=== PATIENT | female | born 1980 | race Caucasian/White ===

== ENCOUNTER 2017-11-20 19:45 | Inpatient (IN) | payer OTHER ==
[2017-11-20] MEDS ORDERED: Citric Acid/Sodium Citrate Solution 30 ML Cup ONE (20:35)
[2017-11-20] MEDS ORDERED: Metoclopramide 10 MG/2 ML SDV ONE (20:35)
[2017-11-20] MEDS ORDERED: Lactated Ringers 1,000 ML ONE (20:35)
[2017-11-20] MEDS ORDERED: Citric Acid/Sodium Citrate Solution 30 ML Cup PO ONE (20:36)
[2017-11-20] MEDS ORDERED: ceFAZolin 2 GM in Premix Bag 1 BAG IV ONE (20:36)
[2017-11-20] MEDS ORDERED: Metoclopramide 10 MG/2 ML SDV IVPUSH ONE (20:36)
[2017-11-20] MEDS ORDERED: Sodium Chloride 0.9% 10 ML Syringe FLUSH PRN ×2 (20:36→22:20)
[2017-11-20] MEDS ORDERED: Bupivacaine 0.5% 30 ML SDV ONE (20:44)
[2017-11-20] MEDS ORDERED: Lactated Ringers 1,000 ML IV SCH (20:45)
--- NOTE | 2017-11-20 20:47 | PCM.LDHP ---
L&D History of Present Illness - General Date of Service: 11/20/17 Admit Problem/Dx: Patient Status Order with Admit Dx/Problem 11/20/17 20:36 Patient Status [ADT] Routine Admission Diagnosis/Problem Admission Diagnosis/Problem complications Source of Information: Patient History Limitations: Reports: No Limitations - History of Present Illness Introduction:: 37-year-old At estimated gestational age 35 weeks and 6 days RUCHI seen in the clinic today complaining of right lower quadrant and right upper quadrant pain examination at that time revealed no rebound or referred pain bowel sounds were normal the uterus was nontender. Biophysical profiles obtained returned 10/11 with 0 for movement. Patient was called to come to labor and delivery and nonstress test reveals tachycardia in the 170s to 180s and patient's blood pressures elevated in (not elevated in the clinic) 140s to 150s over 90s reflexes 2+. Patient's lower abdominal pain and right lower quadrant pain persists there is concern about possible "window" developing in the prior scar only uterus although this could not be confirmed on biophysical profile. Due to her persistent pain, tachycardia and blood pressure of feel we should proceed with medically indicated section repeat. Group B strep collected today. 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 Psychiatric History: Reports: Depression - Past Surgical History Female Surgical History: Reports: Section H&P Review of Systems - Review of Systems: Review Of Systems: See Below General: Reports: No Symptoms HEENT: Reports: No Symptoms Pulmonary: Reports: No Symptoms Cardiovascular: Reports: No Symptoms Gastrointestinal: Reports: No Symptoms Genitourinary: Reports: No Symptoms Musculoskeletal: Reports: No Symptoms Skin: Reports: No Symptoms Psychiatric: Reports: No Symptoms Neurological: Reports: No Symptoms Hematologic/Lymphatic: Reports: No Symptoms Immunologic: Reports: No Symptoms L&D Exam - Exam Exam: See Below - OB Specific Fundal Height In cm: 39 Movement: Not Appreciated Heart Tones: Present Heart Tones per Min: 175 Heart Rate (FHR) Variability: Moderate (6-25 bmp) Presentation: Vertex Estimated Weight: 8 - Juárez Score Juárez Score Cervix Position: Posterior Juárez Score Consistency: Soft Juárez Score Effacement: 0-30% Juárez Score Dilation: Closed Juárez Score Infant's Station: -3 Juárez Score Total: 2 - Exam General: Alert, Oriented HEENT: Conjunctiva Clear, Mucosa Moist & [place], PERRLA Neck: Supple, Trachea Midline Lungs: Clear to Auscultation, Normal Respiratory Effort Cardiovascular: Regular Rate, Regular Rhythm GI/Abdominal Exam: Normal Bowel Sounds, Soft, Tender (2-3+ tender over area of CS scar.) Genitourinary: Normal external exam Extremities: Normal Inspection, Normal Range of Motion, Non-Tender, No Pedal Edema, Normal Capillary Refill Skin: Warm, Dry, Intact Neurological: Reflexes Equal Bilateral DTR: 2+: Patella (L), Patella (R) Psychiatric: Alert, Normal Affect, Normal Mood - Problem List (1) 35 weeks gestation of SNOMED Code(s): 03757551 ICD Code: Z3A.35 - 35 WEEKS GESTATION OF Status: Acute Current Visit: Yes (2) History of delivery, antepartum SNOMED Code(s): 981933619, 646376765 ICD Code: O34.219 - MATERNAL CARE FOR UNSP TYPE SCAR FROM PREVIOUS DEL Status: Acute Current Visit: Yes (3) Transient hypertension of in third trimester SNOMED Code(s): 412877283, 907135315 ICD Code: O13.3 - GESTATIONAL HTN W/O SIGNIFICANT PROTEINURIA, THIRD TRIMESTER Status: Acute Current Visit: Yes (4) Antepartum tachycardia affecting care of mother SNOMED Code(s): 1084394 ICD Code: O36.8390 - MATERN CARE FOR ABNLT FETL HRT RATE OR RHYM, UNSP TRI, UNSP Status: Acute Current Visit: Yes Problem List Initiated/Reviewed/Updated: No Orders Last 24hrs: Active Orders 24 hr Category Date Time Status Patient Status [ADT] Routine ADT 11/20/17 20:36 Ordered Communication Order [RC] ROUTINE Care 11/20/17 20:36 Ordered Heart Tones [RC] PER UNIT ROUTINE Care 11/20/17 20:36 Ordered Non Stress Test [RC] PER UNIT ROUTINE Care 11/20/17 20:36 Ordered Peripheral IV Care [RC] . DIRECTED Care 11/20/17 20:37 Ordered Procedure Site Prep Instruct [RC] ASDIRECTED Care 11/20/17 20:36 Ordered Verify Patient Consent Obtain [RC] PER UNIT ROUTINE Care 11/20/17 20:36 Ordered Vital Signs [RC] PFP Care 11/20/17 20:36 Ordered ALANINE AMINOTRANSFERASE,ALT [CHEM] Stat Lab 11/20/17 20:14 Ordered ASPARTATE AMNIOTRANSFERASE,AST [CHEM] Stat Lab 11/20/17 20:14 Ordered BLOOD UREA NITROGEN,BUN [CHEM] Stat Lab 11/20/17 20:14 Ordered CBC WITH AUTO DIFF [HEME] Stat Lab 11/20/17 20:14 Ordered CREATININE W/GFR [CHEM] Stat Lab 11/20/17 20:14 Ordered LACTATE DEHYDROGENASE,LDH [CHEM] Stat Lab 11/20/17 20:14 Ordered TYPE AND SCREEN [BBK] Stat Lab 11/20/17 20:13 Ordered URIC ACID [CHEM] Stat Lab 11/20/17 20:14 Ordered Citric Acid/Sodium Citrate [Bicitra Solution] Med 11/20/17 20:36 Once 30 ml PO ONETIME ONE Lactated Ringers @ 125 MLS/HR(1000ml) Med 11/20/17 20:45 Ordered Lactated Ringers [Ringers, Lactated] 1,000 ml IV ASDIRECTED Metoclopramide [Reglan] Med 11/20/17 20:36 Once 10 mg IVPUSH ONETIME ONE Sodium Chloride 0.9% [Saline Flush] Med 11/20/17 20:36 Ordered 10 ml FLUSH ASDIRECTED PRN ceFAZolin [Ancef] 2 gm Med 11/20/17 20:36 Ordered Premix Bag 1 bag IV ONETIME PIH Panel [OM.PC] Stat Oth 11/20/17 20:13 Ordered Peripheral IV Insertion Adult [OM.PC] Routine Oth 11/20/17 20:36 Ordered Schedule Procedure [COMM] Per Unit Routine Oth 11/20/17 20:36 Ordered Resuscitation Status Routine Resus Stat 11/20/17 20:36 Ordered
[2017-11-20] MEDS ORDERED: Oxytocin 10 Units/1 ML SDV ONE (20:54)
[2017-11-20] MEDS ORDERED: Ondansetron 4 MG/2 ML SDV ONE (20:54)
[2017-11-20] MEDS ORDERED: ceFAZolin 1 GM Vial ONE (20:54)
[2017-11-20] MEDS ORDERED: Lactated Ringers 2,000 ML ONE (20:54)
[2017-11-20] MEDS ORDERED: Morphine PF 10 MG/10 ML SDV ONE (20:54)
[2017-11-20] MEDS ORDERED: Bupivacaine 0.75%/D5W 2 ML Amp ONE (20:54)
[2017-11-20] MEDS ORDERED: Lidocaine 1% 4 ML ONE (20:54)
[2017-11-20] MEDS ORDERED: Ketorolac 30 MG/ML SDV ONE (20:54)
[2017-11-20] MEDS ORDERED: Phenylephrine 1% 10 MG/ML SDV ONE (20:54)
[2017-11-20] MEDS ORDERED: Ondansetron 4 MG/2 ML SDV IVPUSH PRN (21:39)
[2017-11-20] MEDS ORDERED: fentaNYL 100 MCG/2 ML SDV IVPUSH PRN (21:39)
[2017-11-20] MEDS ORDERED: HYDROmorphone 0.5 MG/0.5 ML SYRINGE IVPUSH PRN (21:39)
[2017-11-20] MEDS ORDERED: ePHEDrine 50 MG/ML SDV IVPUSH PRN ×2 (21:39→22:20)
[2017-11-20] MEDS ORDERED: diphenhydrAMINE 50 MG/ML SDV IVPUSH PRN (21:39)
--- NOTE | 2017-11-20 21:46 | PCM.PREANE ---
Preanesthetic Assessment - Anesthesia/Transfusion/Family Hx Anesthesia History: Prior Anesthesia Without Reaction Family History of Anesthesia Reaction: No Transfusion History: No Prior Transfusion(s) Intubation History: Unknown - Review of Systems General: No Symptoms Pulmonary: No Symptoms Cardiovascular: No Symptoms (recent gestational HTN), Palpitations (while and laying flat) Gastrointestinal: No Symptoms (GERD), Constipation Neurological: No Symptoms Other: Reports: Depression - Physical Assessment NPO Status Date: 11/20/17 NPO Status Time: 17:00 Pulse: 98 O2 Sat by Pulse Oximetry: 96 Respiratory Rate: 20 Blood Pressure: 144/88 Temperature: 36.6 C Height: 1.73 m Weight: 106 kg ASA Class: 2E Mental Status: Alert & Oriented x3 Airway Class: Mallampati = 2 Dentition: Reports: Normal Dentition Thyro-Mental Finger Breadths: 3 Mouth Opening Finger Breadths: 3 ROM/Head Extension: Full Lungs: Clear to Auscultation, Normal Respiratory Effort Cardiovascular: Regular Rate, Regular Rhythm, No Murmurs - Lab Values: Laboratory Last Values WBC 7.57 K/mm3 (3.98-10.04) 11/20/17 20:35 RBC 3.75 M/mm3 (3.98-5.22) L 11/20/17 20:35 Hgb 10.7 gm/L (11.2-15.7) L 11/20/17 20:35 Hct 32.3 % (34.1-44.9) L 11/20/17 20:35 MCV 86.1 fl (79.4-94.8) 11/20/17 20:35 MCH 28.5 pg (25.6-32.2) 11/20/17 20:35 MCHC 33.1 g/dl (32.2-35.5) 11/20/17 20:35 RDW Std Deviation 44.4 fL (36.4-46.3) 11/20/17 20:35 Plt Count 265 K/mm3 (182-369) 11/20/17 20:35 MPV 10.4 fl (9.4-12.3) 11/20/17 20:35 Neut % (Auto) 68.8 % (34.0-71.1) 11/20/17 20:35 Lymph % (Auto) 21.1 % (19.3-51.7) 11/20/17 20:35 Charlton % (Auto) 9.1 % (4.7-12.5) 11/20/17 20:35 Eos % (Auto) 0.8 (0.7-5.8) 11/20/17 20:35 Baso % (Auto) 0.1 % (0.1-1.2) 11/20/17 20:35 Neut # (Auto) 5.20 K/mm3 (1.56-6.13) 11/20/17 20:35 Lymph # (Auto) 1.60 K/mm3 (1.18-3.74) 11/20/17 20:35 Charlton # (Auto) 0.69 K/mm3 (0.24-0.36) H 11/20/17 20:35 Eos # (Auto) 0.06 K/mm3 (0.04-0.36) 11/20/17 20:35 Baso # (Auto) 0.01 K/mm3 (0.01-0.08) 11/20/17 20:35 BUN 5 mg/dL (7-18) L 11/20/17 20:35 Creatinine 0.8 mg/dL (0.55-1.02) 11/20/17 20:35 Est Cr Clr Drug Dosing TNP 11/20/17 20:35 Estimated GFR (MDRD) > 60 mL/min (>60) 11/20/17 20:35 Uric Acid 4.0 mg/dL (2.6-6.0) 11/20/17 20:35 AST 11 U/L (15-37) L 11/20/17 20:35 ALT 11 U/L (14-59) L 11/20/17 20:35 Lactate Dehydrogenase 151 U/L (81-234) 11/20/17 20:35 Above labs reviewed and noted and within acceptable ranges to proceed with repeat . 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 Psychiatric History: Reports: Depression - Past Surgical History Female Surgical History: Reports: Section - HOME MEDS Home Medications: Home Meds Hydrocodone/Acetaminophen [Hydrocodon-Acetaminophen 5-325] 1 - 2 each PO Q6HR PRN #20 tablet 04/05/16 [Rx] Sertraline HCl [Zoloft] 100 mg PO DAILY 04/05/16 [History] - CURRENT (IN HOUSE) MEDS Current Meds: Current Medications Diphenhydramine HCl (Benadryl) 25 mg IVPUSH Q6H PRN PRN Reason: pruritis Ephedrine Sulfate (Ephedrine Sulfate) 5 mg IVPUSH ASDIRECTED PRN PRN Reason: Hypotension Fentanyl (Sublimaze) 50 mcg IVPUSH Q5M PRN PRN Reason: Pain Hydromorphone HCl (Dilaudid) 0.5 mg IVPUSH ONETIME PRN PRN Reason: Pain Lactated Ringer's (Ringers, Lactated) 1,000 mls @ 125 mls/hr IV ASDIRECTED GLORIA Last Admin: 11/20/17 20:53 Dose: 125 mls/hr Ondansetron HCl (Zofran) 4 mg IVPUSH ONETIME PRN PRN Reason: Nausea/Vomiting Sodium Chloride (Saline Flush) 10 ml FLUSH ASDIRECTED PRN PRN Reason: Keep Vein Open Discontinued Medications Bupivacaine HCl (Marcaine 0.5%) Confirm Administered Dose 30 ml .ROUTE .STK-MED ONE Stop: 11/20/17 20:45 Bupivacaine HCl/Dextrose (Marcaine 0.75% Spinal) Confirm Administered Dose 2 ml .ROUTE .STK-MED ONE Stop: 11/20/17 20:55 Cefazolin Sodium (Ancef) Confirm Administered Dose 2 gm .ROUTE .STK-MED ONE Stop: 11/20/17 20:55 Citric Acid/Sodium Citrate (Bicitra Solution) Confirm Administered Dose 30 ml .ROUTE .STK-MED ONE Stop: 11/20/17 20:36 Citric Acid/Sodium Citrate (Bicitra Solution) 30 ml PO ONETIME ONE Stop: 11/20/17 20:37 Last Admin: 11/20/17 20:54 Dose: 30 ml Lactated Ringer's (Ringers, Lactated) Confirm Administered Dose 1,000 mls @ as directed .ROUTE .STK-MED ONE Stop: 11/20/17 20:36 Cefazolin Sodium/Dextrose 2 gm (/ Premix) 50 mls @ 100 mls/hr IV ONETIME ONE Stop: 11/20/17 21:05 Lidocaine HCl (Xylocaine-Mpf 1%) Confirm Administered Dose 4 mls @ as directed .ROUTE .STK-MED ONE Stop: 11/20/17 20:55 Lactated Ringer's (Ringers, Lactated) Confirm Administered Dose 2,000 mls @ as directed .ROUTE .STK-MED ONE Stop: 11/20/17 20:55 Ketorolac Tromethamine (Toradol) Confirm Administered Dose 30 mg .ROUTE .STK- MED ONE Stop: 11/20/17 20:55 Metoclopramide HCl (Reglan) Confirm Administered Dose 10 mg .ROUTE .STK-MED ONE Stop: 11/20/17 20:36 Metoclopramide HCl (Reglan) 10 mg IVPUSH ONETIME ONE Stop: 11/20/17 20:37 Last Admin: 11/20/17 20:54 Dose: 10 mg Morphine Sulfate (Duramorph Pf) Confirm Administered Dose 10 mg .ROUTE .STK-MED ONE Stop: 11/20/17 20:55 Ondansetron HCl (Zofran) Confirm Administered Dose 4 mg .ROUTE .STK-MED ONE Stop: 11/20/17 20:55 Oxytocin (Pitocin) Confirm Administered Dose 20 unit .ROUTE .STK-MED ONE Stop: 11/20/17 20:55 Phenylephrine HCl (Star-Synephrine) Confirm Administered Dose 10 mg .ROUTE .STK- MED ONE Stop: 11/20/17 20:55
--- NOTE | 2017-11-20 22:10 | PCM.POSTAN ---
POST ANESTHESIA ASSESSMENT - MENTAL STATUS Mental Status: Alert - VITAL SIGNS Pulse Rate: 89 SaO2: 98 Resp Rate: 14 Blood Pressure: 120/72 Temperature: 36.5 C - RESPIRATORY Respiratory Status: Respiratory Rate WNL, Airway Patent, O2 Saturation Stable, Supplemental Oxygen - CARDIOVASCULAR CV Status: Pulse Rate WNL, Blood Pressure Stable - GASTROINTESTINAL GI Status: No Symptoms - POST OP HYDRATION Hydration Status: Adequate & Stable
--- NOTE | 2017-11-20 22:12 | PCM.OPNOTE ---
- General Post-Op/Procedure Note Date of Surgery/Procedure: 11/20/17 Operative Procedure(s): Low segment transverse repeat (third ) Pre Op Diagnosis: Decreased movement, tachycardia, maternal transient hypertension, gestational diabetes diet controlled, abdominal pain and suspected window in prior scar Post-Op Diagnosis: Same and window confirmed with only membranes and serosa of the uterus with window in the prior scar Anesthesia Technique: Spinal Primary Surgeon: Jayson Ford Secondary Surgeon: Fco Sibley Anesthesia Provider: Juanis Jensen Reason Special Assemblies Supervisor Was Necessary: Difficulty of surgery, retraction, decrease comorbidity and co-mortality Role of Special Assemblies Supervisor: Difficulty of surgery, retraction, decrease comorbidity and co-mortality Fluid Replacement, Intraop: 1,100 Output, Urine Amount: 150 EBL in mLs: 500 Drain/Tube Comments:: Dunn Complications: None Condition: Good Free Text/Narrative:: Patient was transported to operating room and placed under spinal anesthesia in supine position. SCDs in place and functioning prior surgery. Ancef 2 g given intravenously prior surgery. Vaginal and abdominal prep performed. Patient draped in a sterile fashion. Timeout performed confirming name, date of and procedure as repeat section. Adequate level of anesthesia was confirmed patient's friend was brought to the operating room. Pfannenstiel incision was injected with 0.5% Marcaine without epinephrine 20 mL. Pfannenstiel incision was then made and care was sharp section to into the anterior fascia peritoneal cavity was entered without difficulty bladder flap created pushed caudad and a window in the previous scar was noted with only membranes and serosa no intervening myometrial tissue. Incision was made and copious amounts of amniotic fluid estimated at approximately 1000 mL. The head was delivered without difficulty male liveborn delivered at 2134 hrs. on Saturday11/20/17 Apgars 8/9 weight 4040 g 8 lbs. [address] Dobbs present and cared for the . Cord blood was collected from three-vessel cord and placenta was removed manually endometrial cavity inspected and cervical patency was assured. Bunge needle pack instrument sharp count correct times one the uterine incision closed in 2 layers running locking suture of 0 Monocryl for the first layer horizontal imbricating suture modified Lembert type for the second layer. Hemostasis was normal. Both tubes and ovaries were normal. Clots were cleaned from the gutters and cul-de-sac. Uterus replaced into the abdominal cavity. The uterine incision reinspected no bleeding. Sponge needle pack instrument sharp count correct 2 and the abdominal cavity was closed with #1 PDS running suture. Irrigation carried out in the subcutaneous tissue. 3 interrupted sutures of 0 Monocryl approximated the subcutaneous tissue. The skin was closed subcuticular with 30 Domingo needle Monocryl. Dermabond Preneo applied. Not for cleaned from the vagina at the end the procedure. Patient transported postanesthesia care unit in satisfactory condition. No blood transfusions required during surgery.
[2017-11-20] MEDS ORDERED: Meperidine PF 50 MG/ML Syringe ONE (22:16)
[2017-11-20] MEDS ORDERED: Docusate Sodium 100 MG Cap PO PRN (22:20)
[2017-11-20] MEDS ORDERED: Dextrose 5%-Lactated Ringers 1,000 ML IV SCH (22:20)
[2017-11-20] MEDS ORDERED: Lanolin 100% Cream 7 GM Tube TOP PRN (22:20)
[2017-11-20] MEDS ORDERED: Naloxone 0.4 MG/ML SDV IVPUSH PRN (22:20)
[2017-11-20] MEDS ORDERED: Ondansetron 4 MG/2 ML SDV IV PRN (22:20)
[2017-11-20] MEDS ORDERED: Acetaminophen 325 MG Tab PO PRN (22:20)
[2017-11-20] MEDS ORDERED: Acetaminophen/oxyCODONE 325-5 MG Tab PO PRN (22:20)
[2017-11-20] MEDS ORDERED: Meperidine PF 50 MG/ML Syringe IM ONE (22:37)
[2017-11-21] MEDS: diphenhydrAMINE 50 MG/ML SDV IVPUSH PRN ×2 (00:53→09:47)
[2017-11-21] MEDS: Sertraline 25 MG Tab PO SCH ×2 (00:54→09:45)
[2017-11-21] MEDS: Ketorolac 30 MG/ML SDV IVPUSH SCH ×2 (04:22→09:46)
--- NOTE | 2017-11-21 08:48 | PCM.DCSUM1 ---
Discharge Summary - Hospital Course Free Text/Narrative:: [facility] Post-Op/Procedure Note Patient Name: RACHEL ESTRADA Date of : 84 Patient Status: Inpatient Attending Provider: Jayson Ford Date: 11/20/17 22:05 Initialization Date: 11/20/17 22:05 - General Post-Op/Procedure Note Date of Surgery/Procedure: 11/20/17 Operative Procedure(s): Low segment transverse repeat (third ) Pre Op Diagnosis: Decreased movement, tachycardia, maternal transient hypertension, gestational diabetes diet controlled, abdominal pain and suspected window in prior scar Post-Op Diagnosis: Same and window confirmed with only membranes and serosa of the uterus with window in the prior scar Anesthesia Technique: Spinal Primary Surgeon: Jayson Ford Secondary Surgeon: Fco Sibley Anesthesia Provider: Juanis Jensen Reason Mechanical Insulator Was Necessary: Difficulty of surgery, retraction, decrease comorbidity and co-mortality Role of Mechanical Insulator: Difficulty of surgery, retraction, decrease comorbidity and co-mortality Fluid Replacement, Intraop: 1,100 Output, Urine Amount: 150 EBL in mLs: 500 Drain/Tube Comments:: Dunn Complications: None Condition: Good Free Text/Narrative:: Patient was transported to operating room and placed under spinal anesthesia in supine position. SCDs in place and functioning prior surgery. Ancef 2 g given intravenously prior surgery. Vaginal and abdominal prep performed. Patient draped in a sterile fashion. Timeout performed confirming name, date of and procedure as repeat section. Adequate level of anesthesia was confirmed patient's friend was brought to the operating room. Pfannenstiel incision was injected with 0.5% Marcaine without epinephrine 20 mL. Pfannenstiel incision was then made and care was sharp section to into the anterior fascia peritoneal cavity was entered without difficulty bladder flap created pushed caudad and a window in the previous scar was noted with only membranes and serosa no intervening myometrial tissue. Incision was made and copious amounts of amniotic fluid estimated at approximately 1000 mL. The head was delivered without difficulty male liveborn delivered at 2134 hrs. on Saturday11/20/17 Apgars 8/9 weight 4040 g 8 lbs. [address] marketing associate [address] Dobbs present and cared for the . Cord blood was collected from three-vessel cord and placenta was removed manually endometrial cavity inspected and cervical patency was assured. Bunge needle pack instrument sharp count correct times one the uterine incision closed in 2 layers running locking suture of 0 Monocryl for the first layer horizontal imbricating suture modified Lembert type for the second layer. Hemostasis was normal. Both tubes and ovaries were normal. Clots were cleaned from the gutters and cul-de-sac. Uterus replaced into the abdominal cavity. The uterine incision reinspected no bleeding. Sponge needle pack instrument sharp count correct 2 and the abdominal cavity was closed with #1 PDS running suture. Irrigation carried out in the subcutaneous tissue. 3 interrupted sutures of 0 Monocryl approximated the subcutaneous tissue. The skin was closed subcuticular with 30 Domingo needle Monocryl. Dermabond Preneo applied. Not for cleaned from the vagina at the end the procedure. Patient transported postanesthesia care unit in satisfactory condition. No blood transfusions required during surgery. HPI Initial Comments: [facility] Post-Op/Procedure Note Patient Name: RACHEL ESTRADA Date of : 84 Patient Status: Inpatient Attending Provider: Jayson Ford Date: 11/20/17 22:05 Initialization Date: 11/20/17 22:05 - General Post-Op/Procedure Note Date of Surgery/Procedure: 11/20/17 Operative Procedure(s): Low segment transverse repeat (third ) Pre Op Diagnosis: Decreased movement, tachycardia, maternal transient hypertension, gestational diabetes diet controlled, abdominal pain and suspected window in prior scar Post-Op Diagnosis: Same and window confirmed with only membranes and serosa of the uterus with window in the prior scar Anesthesia Technique: Spinal Primary Surgeon: Jayson Ford Secondary Surgeon: Fco Sibley Anesthesia Provider: Juanis Jensen Reason Mechanical Insulator Was Necessary: Difficulty of surgery, retraction, decrease comorbidity and co-mortality Role of Mechanical Insulator: Difficulty of surgery, retraction, decrease comorbidity and co-mortality Fluid Replacement, Intraop: 1,100 Output, Urine Amount: 150 EBL in mLs: 500 Drain/Tube Comments:: Dunn Complications: None Condition: Good Free Text/Narrative:: Patient was transported to operating room and placed under spinal anesthesia in supine position. SCDs in place and functioning prior surgery. Ancef 2 g given intravenously prior surgery. Vaginal and abdominal prep performed. Patient draped in a sterile fashion. Timeout performed confirming name, date of and procedure as repeat section. Adequate level of anesthesia was confirmed patient's friend was brought to the operating room. Pfannenstiel incision was injected with 0.5% Marcaine without epinephrine 20 mL. Pfannenstiel incision was then made and care was sharp section to into the anterior fascia peritoneal cavity was entered without difficulty bladder flap created pushed caudad and a window in the previous scar was noted with only membranes and serosa no intervening myometrial tissue. Incision was made and copious amounts of amniotic fluid estimated at approximately 1000 mL. The head was delivered without difficulty male liveborn delivered at 2134 hrs. on Saturday11/20/17 Apgars 8/9 weight 4040 g 8 lbs. [address] associate [address] Dobbs present and cared for the . Cord blood was collected from three-vessel cord and placenta was removed manually endometrial cavity inspected and cervical patency was assured. Bunge needle pack instrument sharp count correct times one the uterine incision closed in 2 layers running locking suture of 0 Monocryl for the first layer horizontal imbricating suture modified Lembert type for the second layer. Hemostasis was normal. Both tubes and ovaries were normal. Clots were cleaned from the gutters and cul-de-sac. Uterus replaced into the abdominal cavity. The uterine incision reinspected no bleeding. Sponge needle pack instrument sharp count correct 2 and the abdominal cavity was closed with #1 PDS running suture. Irrigation carried out in the subcutaneous tissue. 3 interrupted sutures of 0 Monocryl approximated the subcutaneous tissue. The skin was closed subcuticular with 30 Domingo needle Monocryl. Dermabond Preneo applied. Not for cleaned from the vagina at the end the procedure. Patient transported postanesthesia care unit in satisfactory condition. No blood transfusions required during surgery. Brief History: [facility] . Post-Op/Procedure Note. Patient Name: RACHEL ESTRADA [facility] Record Number: [id number]. Date of : Patient Status: Inpatient. [id number]. Date: 11/20/17 22:05Initialization Date: 11/20/17 22:05. - General Post-Op/Procedure Note. Date of Surgery/Procedure: 11/20/17. Operative Procedure(s): Low segment transverse repeat (third ). Pre Op Diagnosis: Decreased movement, tachycardia, maternal transient hypertension, gestational diabetes diet controlled, abdominal pain and suspected window in prior scar. Post-Op Diagnosis: Same and window confirmed with only membranes and serosa of the uterus with window in the prior scar. Anesthesia Technique: Spinal. Primary Surgeon: Jayson Ford. Secondary Surgeon: Fco Sibley. Anesthesia Provider: Juanis Jensen. Reason Mechanical Insulator Was Necessary: Difficulty of surgery, retraction, decrease comorbidity and co-mortality. Role of Mechanical Insulator: Difficulty of surgery, retraction, decrease comorbidity and co-mortality. Fluid Replacement, Intraop: 1,100. Output, Urine Amount: 150. EBL in mLs: 500. Drain/Tube Comments:: Dunn. Complications: None. Condition: Good. Free Text/Narrative:: Patient was transported to operating room and placed under spinal anesthesia in supine position. SCDs in place and functioning prior surgery. Ancef 2 g given intravenously prior surgery. Vaginal and abdominal prep performed. Patient draped in a sterile fashion. Timeout performed confirming name, date of and procedure as repeat section. Adequate level of anesthesia was confirmed patient's friend was brought to the operating room. Pfannenstiel incision was injected with 0.5% Marcaine without epinephrine 20 mL. Pfannenstiel incision was then made and care was sharp section to into the anterior fascia peritoneal cavity was entered without difficulty bladder flap created pushed caudad and a window in the previous C- section scar was noted with only membranes and serosa no intervening myometrial tissue. Incision was made and copious amounts of amniotic fluid estimated at approximately 1000 mL. The head was delivered without difficulty male liveborn delivered at 2134 hrs. on Saturday11/20/17 Apgars 8/9 weight 4040 g 8 lbs. [address] Oksa present and cared for the . Cord blood was collected from three-vessel cord and placenta was removed manually endometrial cavity inspected and cervical patency was assured. Bunge needle pack instrument sharp count correct times one the uterine incision closed in 2 layers running locking suture of 0 Monocryl for the first layer horizontal imbricating suture modified Lembert type for the second layer. Hemostasis was normal. Both tubes and ovaries were normal. Clots were cleaned from the gutters and cul-de-sac. Uterus replaced into the abdominal cavity. The uterine incision reinspected no bleeding. Sponge needle pack instrument sharp count correct 2 and the abdominal cavity was closed with #1 PDS running suture. Irrigation carried out in the subcutaneous tissue. 3 interrupted sutures of 0 Monocryl approximated the subcutaneous tissue. The skin was closed subcuticular with 30 Domingo needle Monocryl. Dermabond Preneo applied. Not for cleaned from the vagina at the end the procedure. Patient transported postanesthesia care unit in satisfactory condition. No blood transfusions required during surgery. Diagnosis: Stroke: No - Discharge Data Discharge Date: 11/21/17 Discharge Disposition: Home, Self-Care 01 Condition: Good - Discharge Diagnosis/Problem(s) (1) 35 weeks gestation of SNOMED Code(s): 08637983 ICD Code: Z3A.35 - 35 WEEKS GESTATION OF Status: Acute Current Visit: Yes (2) History of delivery, antepartum SNOMED Code(s): 970184147, 820627356 ICD Code: O34.219 - MATERNAL CARE FOR UNSP TYPE SCAR FROM PREVIOUS DEL Status: Acute Current Visit: Yes (3) Transient hypertension of in third trimester SNOMED Code(s): 117232776, 842710964 ICD Code: O13.3 - GESTATIONAL HTN W/O SIGNIFICANT PROTEINURIA, THIRD TRIMESTER Status: Acute Current Visit: Yes (4) Antepartum tachycardia affecting care of mother SNOMED Code(s): 7112127 ICD Code: O36.8390 - MATERN CARE FOR ABNLT FETL HRT RATE OR RHYM, UNSP TRI, UNSP Status: Acute Current Visit: Yes (5) Gestational diabetes mellitus (GDM) SNOMED Code(s): 22095102 ICD Code: O24.419 - GESTATIONAL DIABETES MELLITUS IN , UNSP CONTROL Status: Acute Current Visit: No Qualifiers: Gestational diabetes mellitus control: diet-controlled Trimester: third trimester Qualified Code(s): O24.410 - Gestational diabetes mellitus in , diet controlled - Patient Summary/Data Operative Procedure(s) Performed: Low segment transverse repeat ( third ) Complications: None Consults: None Hospital Course: Uneventful - Patient Instructions Diet: Diabetic Diet Driving: Do Not Drive (2 weeks) Showering/Bathing: May Shower, No Tub Bathing/Swimming (x6 weeks) Wound/Incision Care: Keep Operative Site/Wound Site Clean and Dry Notify Provider of: Fever, Increased Pain, Swelling and Redness, Drainage, Nausea and/or Vomiting - Discharge Plan *PRESCRIPTION DRUG MONITORING PROGRAM REVIEWED*: Yes *COPY OF PRESCRIPTION DRUG MONITORING REPORT IN PATIENT ALEXIA: Yes Prescriptions/Med Rec: Acetaminophen/oxyCODONE [Percocet 325-5 MG] 1 tab PO Q6H PRN #10 tablet PRN Reason: Pain (Moderate 4-6) Ondansetron [Zofran ODT] 4 mg PO Q6H PRN #10 tab.dis PRN Reason: Nausea Sertraline [Zoloft] 50 mg PO DAILY #30 tablet Home Medications: Home Meds Hydrocodone/Acetaminophen [Hydrocodon-Acetaminophen 5-325] 1 - 2 each PO Q6HR PRN #20 tablet 04/05/16 [Rx] Sertraline HCl [Zoloft] 100 mg PO DAILY 04/05/16 [History] Acetaminophen [Tylenol] 650 mg PO Q4H PRN tablet 11/21/17 [Rx] Acetaminophen/oxyCODONE [Percocet 325-5 MG] 1 tab PO Q6H PRN #10 tablet [Rx] Docusate Sodium [Colace] 100 mg PO Q12H PRN cap 11/21/17 [Rx] Ibuprofen [Motrin] 600 mg PO Q6H PRN tablet 11/21/17 [Rx] Lanolin [Lansinoh HPA] 1 applic TOP ASDIRECTED PRN tube 11/21/17 [Rx] Ondansetron [Zofran ODT] 4 mg PO Q6H PRN #10 tab.dis 11/21/17 [Rx] Sertraline [Zoloft] 50 mg PO DAILY #30 tablet 11/21/17 [Rx] Simethicone 80 mg PO PCBED tab.chew 11/21/17 [Rx] diphenhydrAMINE [Benadryl] 25 mg IVPUSH Q6H PRN sdv 11/21/17 [Rx] Referrals: Jayson Ford MD [Primary Care Provider] - (Patient to see me next week .) - Discharge Summary/Plan Comment DC Time >30 min.: No - Patient Data Vitals - Most Recent: Last Vital Signs Temp 98.6 F 11/21/17 04:30 Pulse 90 11/21/17 04:02 Resp 13 11/20/17 23:00 BP 139/82 11/21/17 04:02 Pulse Ox 98 11/21/17 04:02 Weight - Most Recent: 233 lb 11.04 oz I&O - Last 24 hours: Intake & Output 11/20/17 11/21/17 11/21/17 22:59 06:59 14:59 Intake Total 1350 250 Output Total 300 400 Balance 1050 -150 Lab Results - Last 24 hrs: Laboratory Results - last 24 hr 11/20/17 11/20/17 11/20/17 Range/Units 20:35 20:35 20:35 WBC 7.57 (3.98-10.04) K/mm3 RBC 3.75 L (3.98-5.22) M/mm3 Hgb 10.7 L (11.2-15.7) gm/L Hct 32.3 L (34.1-44.9) % MCV 86.1 (79.4-94.8) fl MCH 28.5 (25.6-32.2) pg MCHC 33.1 (32.2-35.5) g/dl RDW Std Deviation 44.4 (36.4-46.3) fL Plt Count 265 (182-369) K/mm3 MPV 10.4 (9.4-12.3) fl Neut % (Auto) 68.8 (34.0-71.1) % Lymph % (Auto) 21.1 (19.3-51.7) % Tate % (Auto) 9.1 (4.7-12.5) % Eos % (Auto) 0.8 (0.7-5.8) Baso % (Auto) 0.1 (0.1-1.2) % Neut # (Auto) 5.20 (1.56-6.13) K/mm3 Lymph # (Auto) 1.60 (1.18-3.74) K/mm3 Tate # (Auto) 0.69 H (0.24-0.36) K/mm3 Eos # (Auto) 0.06 (0.04-0.36) K/mm3 Baso # (Auto) 0.01 (0.01-0.08) K/mm3 BUN 5 L (7-18) mg/dL Creatinine 0.8 (0.55-1.02) mg/dL Est Cr Clr Drug Dosing TNP Estimated GFR (MDRD) > 60 (>60) mL/min Uric Acid 4.0 (2.6-6.0) mg/dL AST 11 L (15-37) U/L ALT 11 L (14-59) U/L Lactate Dehydrogenase 151 (81-234) U/L Blood Type O POSITIVE Gel Antibody Screen Negative 11/21/17 Range/Units 06:15 WBC 11.30 H (3.98-10.04) K/mm3 RBC 3.45 L (3.98-5.22) M/mm3 Hgb 9.7 L (11.2-15.7) gm/L Hct 29.8 L (34.1-44.9) % MCV 86.4 (79.4-94.8) fl MCH 28.1 (25.6-32.2) pg MCHC 32.6 (32.2-35.5) g/dl RDW Std Deviation 44.1 (36.4-46.3) fL Plt Count 254 (182-369) K/mm3 MPV 10.5 (9.4-12.3) fl Neut % (Auto) 73.5 H (34.0-71.1) % Lymph % (Auto) 17.6 L (19.3-51.7) % Tate % (Auto) 8.0 (4.7-12.5) % Eos % (Auto) 0.5 L (0.7-5.8) Baso % (Auto) 0.1 (0.1-1.2) % Neut # (Auto) 8.31 H (1.56-6.13) K/mm3 Lymph # (Auto) 1.99 (1.18-3.74) K/mm3 Tate # (Auto) 0.90 H (0.24-0.36) K/mm3 Eos # (Auto) 0.06 (0.04-0.36) K/mm3 Baso # (Auto) 0.01 (0.01-0.08) K/mm3 BUN (7-18) mg/dL Creatinine (0.55-1.02) mg/dL Est Cr Clr Drug Dosing Estimated GFR (MDRD) (>60) mL/min Uric Acid (2.6-6.0) mg/dL AST (15-37) U/L ALT (14-59) U/L Lactate Dehydrogenase (81-234) U/L Blood Type Gel Antibody Screen Med Orders - Current: Current Medications Acetaminophen (Tylenol) 650 mg PO Q4H PRN PRN Reason: mild pain or fever Diphenhydramine HCl (Benadryl) 25 mg IVPUSH Q6H PRN PRN Reason: Itching or Nausea Last Admin: 11/21/17 00:53 Dose: 25 mg Docusate Sodium (Colace) 100 mg PO Q12H PRN PRN Reason: Constipation Emollient Ointment (Lansinoh Hpa) 0 gm TOP ASDIRECTED PRN PRN Reason: Sore Nipples Ephedrine Sulfate (Ephedrine Sulfate) 5 mg IVPUSH SEECOMMENT PRN PRN Reason: Other Ibuprofen (Motrin) 600 mg PO Q6H PRN PRN Reason: mild pain or fever Ketorolac Tromethamine (Toradol) 30 mg IVPUSH Q6H [facility] Stop: 11/21/17 16:01 Last Admin: 11/21/17 04:22 Dose: 30 mg Naloxone HCl (Narcan) 0.1 mg IVPUSH SEECOMMENT PRN PRN Reason: Respiratory Depression Ondansetron HCl (Zofran) 4 mg IV Q8H PRN PRN Reason: Nausea/Vomiting Oxycodone/Acetaminophen (Percocet 325-5 Mg) 2 tab PO Q4H PRN PRN Reason: Pain (moderate 4-6) Sertraline HCl (Zoloft) 25 mg PO DAILY [facility] Last Admin: 11/21/17 00:54 Dose: Not Given Simethicone (Simethicone) 80 mg PO PCBED [facility] Sodium Chloride (Saline Flush) 10 ml FLUSH ASDIRECTED PRN PRN Reason: Keep Vein Open Discontinued Medications Bupivacaine HCl (Marcaine 0.5%) Confirm Administered Dose 30 ml .ROUTE .STK-MED ONE Stop: 11/20/17 20:45 Last Admin: 11/20/17 21:31 Dose: 20 ml Bupivacaine HCl/Dextrose (Marcaine 0.75% Spinal) Confirm Administered Dose 2 ml .ROUTE .STK-MED ONE Stop: 11/20/17 20:55 Cefazolin Sodium (Ancef) Confirm Administered Dose 2 gm .ROUTE .STK-MED ONE Stop: 11/20/17 20:55 Citric Acid/Sodium Citrate (Bicitra Solution) Confirm Administered Dose 30 ml .ROUTE .STK-MED ONE Stop: 11/20/17 20:36 Citric Acid/Sodium Citrate (Bicitra Solution) 30 ml PO ONETIME ONE Stop: 11/20/17 20:37 Last Admin: 11/20/17 20:54 Dose: 30 ml Diphenhydramine HCl (Benadryl) 25 mg IVPUSH Q6H PRN PRN Reason: pruritis Ephedrine Sulfate (Ephedrine Sulfate) 5 mg IVPUSH ASDIRECTED PRN PRN Reason: Hypotension Fentanyl (Sublimaze) 50 mcg IVPUSH Q5M PRN PRN Reason: Pain Hydromorphone HCl (Dilaudid) 0.5 mg IVPUSH ONETIME PRN PRN Reason: Pain Lactated Ringer's (Ringers, Lactated) Confirm Administered Dose 1,000 mls @ as directed .ROUTE .STK-MED ONE Stop: 11/20/17 20:36 Cefazolin Sodium/Dextrose 2 gm (/ Premix) 50 mls @ 100 mls/hr IV ONETIME ONE Stop: 11/20/17 21:05 Lactated Ringer's (Ringers, Lactated) 1,000 mls @ 125 mls/hr IV ASDIRECTED GLORIA Last Admin: 11/20/17 20:53 Dose: 125 mls/hr Lidocaine HCl (Xylocaine-Mpf 1%) Confirm Administered Dose 4 mls @ as directed .ROUTE .STK-MED ONE Stop: 11/20/17 20:55 Lactated Ringer's (Ringers, Lactated) Confirm Administered Dose 2,000 mls @ as directed .ROUTE .STK-MED ONE Stop: 11/20/17 20:55 Dextrose/Lactated Ringer's (Dextrose 5%-Lactated Ringers) 1,000 mls @ 125 mls/ hr IV ASDIRECTED GLORIA Stop: 11/21/17 06:19 Last Admin: 11/21/17 00:54 Dose: 125 mls/hr Ketorolac Tromethamine (Toradol) Confirm Administered Dose 30 mg .ROUTE .STK- MED ONE Stop: 11/20/17 20:55 Meperidine HCl (Demerol) Confirm Administered Dose 50 mg .ROUTE .STK-MED ONE Stop: 11/20/17 22:17 Meperidine HCl (Demerol) 25 mg IM ONETIME ONE Stop: 11/20/17 22:38 Last Admin: 11/20/17 22:17 Dose: 25 mg Metoclopramide HCl (Reglan) Confirm Administered Dose 10 mg .ROUTE .STK-MED ONE Stop: 11/20/17 20:36 Metoclopramide HCl (Reglan) 10 mg IVPUSH ONETIME ONE Stop: 11/20/17 20:37 Last Admin: 11/20/17 20:54 Dose: 10 mg Morphine Sulfate (Duramorph Pf) Confirm Administered Dose 10 mg .ROUTE .STK-MED ONE Stop: 11/20/17 20:55 Ondansetron HCl (Zofran) Confirm Administered Dose 4 mg .ROUTE .STK-MED ONE Stop: 11/20/17 20:55 Ondansetron HCl (Zofran) 4 mg IVPUSH ONETIME PRN PRN Reason: Nausea/Vomiting Oxytocin (Pitocin) Confirm Administered Dose 20 unit .ROUTE .STK-MED ONE Stop: 11/20/17 20:55 Phenylephrine HCl (Star-Synephrine) Confirm Administered Dose 10 mg .ROUTE .STK- MED ONE Stop: 11/20/17 20:55 Sodium Chloride (Saline Flush) 10 ml FLUSH ASDIRECTED PRN PRN Reason: Keep Vein Open
--- NOTE | 2017-11-21 09:35 | PCM48HPAN ---
Post Anesthesia Note - EVALUATION WITHIN 48HRS OF ANESTHETIC Vital Signs in Normal Range: Yes Patient Participated in Evaluation: Yes Respiratory Function Stable: Yes Airway Patent: Yes Cardiovascular Function Stable: Yes Hydration Status Stable: Yes Pain Control Satisfactory: Yes Nausea and Vomiting Control Satisfactory: Yes Mental Status Recovered: Yes Pulse Rate: 90 Resp Rate: 13 Temperature: 36.5 C Blood Pressure: 139/82
[2017-11-21] MEDS: Simethicone 80 MG Tab.Chew PO SCH ×2 (09:45→15:07)
[2017-11-21 19:57] VITALS: BP 123/79
[2017-11-21] MEDS ORDERED: Ibuprofen 600 MG Tab PO PRN (22:00)
== END 2017-11-21 15:25 | disposition home or self-care (01) | DRG 766 ==
LOC: JD.OBCHECK 19:45 → JD.OB 19:54 → JD.OBCHECK 20:36 → JD.OB 21:19
PROVIDERS: ADMIT Obstetrics & Gynecology; ATTEND Obstetrics & Gynecology
PROC: 10D00Z1 Extraction of Products of Conception, Low, Open Approach (ICD-10-PCS; principal; 2017-11-20)
PROC: 6A550ZT Pheresis of Cord Blood Stem Cells, Single (ICD-10-PCS; principal; 2017-11-20)
DX: O34.211 Maternal care for low transverse scar from previous cesarean delivery (principal); Z37.0 Single live birth; N85.8 Other specified noninflammatory disorders of uterus; Z3A.35 35 weeks gestation of pregnancy; O76 Abnormality in fetal heart rate and rhythm complicating labor and delivery; O24.420 Gestational diabetes mellitus in childbirth, diet controlled; O75.89 Other specified complications of labor and delivery; T81.89XA Other complications of procedures, not elsewhere classified, initial encounter; Y83.8 Other surgical procedures as the cause of abnormal reaction of the patient, or of later complication, without mention of misadventure at the time of the procedure; O13.4 Gestational [pregnancy-induced] hypertension without significant proteinuria, complicating childbirth; O99.344 Other mental disorders complicating childbirth; F32.9 Major depressive disorder, single episode, unspecified; Z79.899 Other long term (current) drug therapy
CPT/HCPCS: 36415; 59025; 82565; 83615; 84450; 84460; 84520; 84550; 85025; 86592; 86850; 86900; 86901; A9270-GY; J0690; J1200; J1885; J2001; J2175; J2270; J2370; J2405; J2590; J2765; J3490; J7042; J7120

== ENCOUNTER 2018-10-13 13:37 | Emergency (ER) | payer SELFPAY ==
[2018-10-13 13:47] VITALS: BP 153/106
--- NOTE | 2018-10-13 14:03 | EDM.PDOC ---
ED HPI GENERAL MEDICAL PROBLEM - General Chief Complaint: Lower Extremity Injury/Pain Stated Complaint: LT LEG INJURY Time Seen by Provider: 10/13/18 13:44 Source of Information: Reports: Patient History Limitations: Reports: No Limitations - History of Present Illness INITIAL COMMENTS - FREE TEXT/NARRATIVE: The patient fell and hurt her left anterior lower leg on and again on Saturday. She is able to walk on her leg but she is very tender to touch in the anterior left lower leg. She has no other injuries. Onset: Sudden Duration: Day(s): (4) Location: Reports: Lower Extremity, Left (anterior lower leg) Quality: Reports: Sharp Severity: Severe Improves with: Reports: Immobilization Worsens with: Reports: Movement Associated Symptoms: Reports: No Other Symptoms - Related Data Allergies Allergy/AdvReac Type Severity Reaction Status Date / Time latex Allergy Severe Burning Verified 10/13/18 13:46 late Allergy Blisters Uncoded 12/11/17 22:05 tape Allergy Blisters Uncoded 12/11/17 22:05 Home Meds: Home Meds Hydrocodone/Acetaminophen [Hydrocodon-Acetaminophen 5-325] 1 - 2 each PO Q6HR PRN #20 tablet 04/05/16 [Rx] Sertraline HCl [Zoloft] 100 mg PO DAILY 04/05/16 [History] Acetaminophen [Tylenol] 650 mg PO Q4H PRN tablet 11/21/17 [Rx] Acetaminophen/oxyCODONE [Percocet 325-5 MG] 1 tab PO Q6H PRN #10 tablet [Rx] Docusate Sodium [Colace] 100 mg PO Q12H PRN cap 11/21/17 [Rx] Ibuprofen [Motrin] 600 mg PO Q6H PRN tablet 11/21/17 [Rx] Lanolin [Lansinoh HPA] 1 applic TOP ASDIRECTED PRN tube 11/21/17 [Rx] Ondansetron [Zofran ODT] 4 mg PO Q6H PRN #10 tab.dis 11/21/17 [Rx] Sertraline [Zoloft] 50 mg PO DAILY #30 tablet 11/21/17 [Rx] Simethicone 80 mg PO PCBED tab.chew 11/21/17 [Rx] diphenhydrAMINE [Benadryl] 25 mg IVPUSH Q6H PRN sdv 11/21/17 [Rx] Acetaminophen/oxyCODONE [Percocet 325-5 MG] 1 each PO Q6H #20 tab 11/23/17 [Rx] Hydrocodone/Acetaminophen [Hydrocodon-Acetaminophen 5-325] 1 - 2 each PO Q6HR PRN #10 tablet 12/12/17 [Rx] Past Medical History - Past Health History Medical/Surgical History: Denies Medical/Surgical History HEENT History: Reports: Otitis Media Respiratory History: Reports: Asthma TABLE 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 Section x3 Social & Family History - Family History Family Medical History: Noncontributory - Tobacco Use Smoking Status *Q: Never Smoker - Caffeine Use Caffeine Use: Reports: Coffee, Soda Review of Systems - Review of Systems Review Of Systems: See Below Constitutional: Reports: No Symptoms Eyes: Reports: No Symptoms Ears: Reports: No Symptoms Nose: Reports: No Symptoms Mouth/Throat: Reports: No Symptoms Respiratory: Reports: No Symptoms Cardiovascular: Reports: No Symptoms GI/Abdominal: Reports: No Symptoms Genitourinary: Reports: No Symptoms Musculoskeletal: Reports: Other (Left lower leg pain and swelling with ecchymosis) ED EXAM, GENERAL - Physical Exam Exam: See Below Exam Limited By: No Limitations General Appearance: Alert, No Apparent Distress Ears: Normal External Exam Nose: Normal Inspection Head: Atraumatic, Normocephalic Neck: Normal Inspection Respiratory/Chest: No Respiratory Distress Extremities: Other (Pain upon palpation to the left anterior lower leg with edema and ecchymosis. Good sensation and pulses distally.) Course - Vital Signs Last Recorded V/S: Last Vital Signs Temp 97.6 F 10/13/18 13:44 Pulse 89 10/13/18 13:44 Resp 18 10/13/18 13:44 BP 153/106 H 10/13/18 13:44 Pulse Ox 100 10/13/18 13:44 - Orders/Labs/Meds Orders: Active Orders 24 hr Category Date Time Status Tibia Fibula Lt [CR] Stat Exams 10/13/18 14:09 Taken - Re-Assessments/Exams Free Text/Narrative Re-Assessment/Exam: 10/13/18 14:56 Her x-ray looks good. I will discharge her home. Departure - Departure Time of Disposition: 15:00 Disposition: Home, Self-Care 01 Condition: Good Clinical Impression: Contusion of left lower leg Qualifiers: Encounter type: initial encounter Qualified Code(s): S80.12XA - Contusion of left lower leg, initial encounter - Discharge Information *PRESCRIPTION DRUG MONITORING PROGRAM REVIEWED*: Not Applicable *COPY OF PRESCRIPTION DRUG MONITORING REPORT IN PATIENT ALEXIA: Not Applicable Referrals: PCP,None [Primary Care Provider] - Deysi Griffin PA-C [Physician Nurse First Aid] - 1 Week Forms: ED Department Discharge Additional Instructions: Ice your leg for 15 minutes 3 times per day for 2 days. Take motrin or tylenol as needed for pain. Elevate your leg as much as you can for 2 days. Please return if you are worse. - My Orders Last 24 Hours: My Active Orders 10/13/18 14:09 Tibia Fibula Lt [CR] Stat - Assessment/Plan Last 24 Hours: My Active Orders 10/13/18 14:09 Tibia Fibula Lt [CR] Stat
--- NOTE | 2018-10-13 15:18 | CR ---
Left tibia and fibula: Two views of the left tibia and fibula were obtained. Comparison: No prior study of this area. Soft tissue calcification is seen within the lower anterior hunt most likely dystrophic which I believe is incidental. No fracture or other bony abnormality is seen. Impression: 1. Soft tissue calcification. No acute bony abnormality is identified. Diagnostic code #2
== END 2018-10-13 15:05 | disposition home or self-care (01) ==
LOC: JD.ED 13:37
DX: S80.12XA Contusion of left lower leg, initial encounter (principal); F32.9 Major depressive disorder, single episode, unspecified; Z79.899 Other long term (current) drug therapy; Z91.040 Latex allergy status; Z91.09 Other allergy status, other than to drugs and biological substances; W19.XXXA Unspecified fall, initial encounter
CPT/HCPCS: 73590-26-LT; 73590-LT; 99282; 99283-25

== ENCOUNTER 2019-02-25 04:27 | Emergency (ER) | payer SELFPAY ==
[2019-02-25 04:37] VITALS: BP 137/88; PULSE 100
[2019-02-25] MEDS ORDERED: Ondansetron 4 MG/2 ML SDV IVPUSH ONE (04:56)
[2019-02-25] MEDS ORDERED: HYDROmorphone 1 MG/ML Syringe IVPUSH ONE (04:56)
[2019-02-25] MEDS ORDERED: Sodium Chloride 0.9% 1,000 ML IV SCH (05:00)
--- NOTE | 2019-02-25 05:03 | EDM.PDOC ---
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 Ochoa is a pleasant 39-year-old woman with a past medical history significant for 3 spontaneous abortions. She tells me that it is not known why she has the abortions, and that a coagulopathy workup has not been done. She is currently G7 [id number], however, she states that an ultrasound performed on 02/16/2019, after the patient developed spotting, found an intrauterine demise at 10 weeks 1 day gestation. She was told that if she had not delivered the fetus by 03/02/2019, she could be treated medically or with a D&C. The patient states that she developed vaginal bleeding yesterday, then painful contractions around 19:00 last night. She states that the amount of bleeding is small, unless she stands up, at which time it gushes, including clots. She states that she thought she could handle the pain, but it became too severe, which is why she came to the ED. The patient's blood type is O-Pos The patient's PCP is Dr. Stephanie Stacy. Her OB is Dr. Jayson Ford. 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) Psychiatric History: Reports: Depression (history of cutting) Endocrine/Metabolic History: Reports: Diabetes, Gestational, Obesity/BMI 30+ - Past Surgical History Female Surgical History: Reports: Section (x 3) Social & Family History - Family History Family Medical History: Noncontributory - Tobacco Use Smoking Status *Q: Never Smoker - Caffeine Use Caffeine Use: Reports: Coffee, Soda - Alcohol Use Alcohol Use History: Yes Alcohol Use Frequency: Socially (when not ) - Recreational Drug Use Recreational Drug Use: No - Living Situation & Occupation Living situation: Reports: , with Spouse, with Family (3 kids) Occupation: Unemployed ED ROS GENERAL - Review of Systems Review Of Systems: ROS reveals no pertinent complaints other than HPI. ED EXAM - Physical Exam Exam: See Below Exam Limited By: No Limitations General Appearance: Alert, WD/WN, Mild Distress (Appears uncomfortable) Eye Exam: Bilateral Eye: EOMI, Normal Inspection Ears: Normal External Exam, Hearing Grossly Normal Nose: Normal Inspection Throat/Mouth: Normal Inspection, Normal Lips, Normal Voice, No Airway Compromise Head: Atraumatic, Normocephalic Neck: Normal Inspection, Full Range of Motion Respiratory/Chest: No Respiratory Distress, Lungs Clear, Normal Breath Sounds, No Accessory Muscle Use Cardiovascular: Normal Peripheral Pulses, Regular Rate, Rhythm, No Edema, No Gallop, No JVD, No Murmur, No Rub GI/Abdominal Exam: Normal Bowel Sounds, Soft, No Organomegaly, No Distention, No Abnormal Bruit, No Mass, Tender (Suprapubically only. Nontender elsewhere.) Rectal Exam: Deferred Back Exam: Normal Inspection, Full Range of Motion, NT Extremities: Normal Inspection, Normal Range of Motion, No Pedal Edema, Normal Capillary Refill Neurological: Alert, Oriented, Normal Cognition, No Motor/Sensory Deficits Psychiatric: Flat Affect Skin Exam: Warm, Dry, Intact, Normal Color, No Rash Course - Vital Signs Last Recorded V/S: Last Vital Signs Temp 36.2 C 02/25/19 04:34 Pulse 100 02/25/19 04:34 Resp 24 H 02/25/19 04:34 BP 137/88 02/25/19 04:34 Pulse Ox 100 02/25/19 04:34 - Orders/Labs/Meds Orders: Active Orders 24 hr Category Date Time Status Sodium Chloride 0.9% [Normal Saline] 1,000 ml Med 02/25/19 05:00 Active IV ASDIRECTED Medication Orders Sodium Chloride (Normal Saline) 1,000 mls @ 150 mls/hr IV ASDIRECTED GLORIA Last Admin: 02/25/19 05:11 Dose: 150 mls/hr Labs: Laboratory Tests 02/25/19 02/25/19 02/25/19 Range/Units 05:09 05:09 05:09 WBC 8.73 (3.98-10.04) K/mm3 RBC 4.19 (3.98-5.22) M/mm3 Hgb 12.0 (11.2-15.7) gm/dl Hct 36.4 (34.1-44.9) % MCV 86.9 (79.4-94.8) fl MCH 28.6 (25.6-32.2) pg MCHC 33.0 (32.2-35.5) g/dl RDW Std Deviation 42.2 (36.4-46.3) fL Plt Count 348 (182-369) K/mm3 MPV 9.9 (9.4-12.3) fl Neutrophils % (Manual) 66 H (40-60) % Band Neutrophils % 0 (0-10) % Lymphocytes % (Manual) 25 (20-40) % Atypical Lymphs % 0 % Monocytes % (Manual) 9 (2-10) % Eosinophils % (Manual) 0 L (0.7-5.8) % Basophils % (Manual) 0 L (0.1-1.2) Platelet Estimate Adequate Plt Morphology Comment Normal RBC Morph Comment Normal PT 10.6 (9.7-12.0) SECONDS INR 0.97 APTT 29 (22-31) SECONDS Sodium 136 (136-145) mEq/L Potassium 3.9 (3.5-5.1) mEq/L Chloride 103 (98-107) mEq/L Carbon Dioxide 21 (21-32) mEq/L Anion Gap 15.9 H (5-15) BUN 9 (7-18) mg/dL Creatinine 0.8 (0.55-1.02) mg/dL Est Cr Clr Drug Dosing 97.13 mL/min Estimated GFR (MDRD) > 60 (>60) mL/min BUN/Creatinine Ratio 11.3 L (14-18) Glucose 130 H (74-106) mg/dL Calcium 9.0 (8.5-10.1) mg/dL Total Bilirubin 0.3 (0.2-1.0) mg/dL AST 18 (15-37) U/L ALT 23 (14-59) U/L Alkaline Phosphatase 88 (46-116) U/L Total Protein 8.2 (6.4-8.2) g/dl Albumin 3.9 (3.4-5.0) g/dl Globulin 4.3 gm/dL Albumin/Globulin Ratio 0.9 L (1-2) Meds: Medications Generic Name Dose Route Start Last Admin Trade Name Freq PRN Reason Stop Dose Admin Sodium Chloride 1,000 mls @ 150 mls/hr 02/25/19 05:00 02/25/19 05:11 Normal Saline IV 150 mls/hr ASDIRECTED GLORIA Administration Discontinued Medications Generic Name Dose Route Start Last Admin Trade Name Freq PRN Reason Stop Dose Admin Hydromorphone HCl 1 mg 02/25/19 04:56 02/25/19 05:11 Dilaudid IVPUSH 02/25/19 04:57 1 mg ONETIME ONE Administration Ondansetron HCl 4 mg 02/25/19 04:56 02/25/19 05:11 Zofran IVPUSH 02/25/19 04:57 4 mg ONETIME ONE Administration - Re-Assessments/Exams Free Text/Narrative Re-Assessment/Exam: 02/25/19 04:56 I have asked Ela CONTRERAS to place an IV so that we can give the patient some pain medication, antinausea medicine, and IV fluid. I have ordered a CBC, CMP, and coags. Once they have been obtained, the patient will be taken to our gynecologic room for a pelvic exam, in order to examine her cervix. Following that, I will contact the OB on-call. 02/25/19 05:40 The patient's cervix is closed, and there is no active bleeding. A small amount of blood was found in the vagina, but no other abnormalities. 02/25/19 05:[address] Claudia Canales at 05:40. She has not seen an indication for emergent D&C. She recommended that the patient call Dr. Ford's office this morning. The patient should remain NPO in case Dr. Ford does decide to take her to the OR. I will prescribe some Noti and Zofran via [facility]. 02/25/19 05:[address] Canales was discussed with the patient. Unfortunately, the patient does not have a credit or debit card in order to fill a prescription from [facility], and, more poorly, the patient states that she drove herself here, but because she received Dilaudid, she cannot drive herself home. She states that her or mother can come and get her, but that they will be sleeping for another couple of hours. I suggested instead that I try to reach Dr. Ford around 06:00, to see if perhaps he can come by the ED to evaluate the patient. The patient is agreeable with that suggestion. 02/25/19 06:46 The patient's CBC is unremarkable. Her CMP is remarkable for a blood glucose mildly elevated at 130, and is otherwise unremarkable. Her coags are normal. Case discussed with Dr. Ford at 06:38. He advised against a D&C, since it can cause some scarring to the uterus. He would give the patient the option of expediting the miscarriage by taking Cytotec, 4 tablets now, then another 2 tablets tomorrow morning at the same time, noting that it would cause her to have even worse cramping and bleeding than she is currently experiencing. He noted that she would need to have somebody with her, because she would not be able to drive herself to the ED if the pain or bleeding became severe. Alternatively, the patient can wait and have a natural miscarriage. I could prescribe her some pain medication and have her follow-up with him at her previously scheduled appointment on 03/02/2019. She could follow-up with him earlier than that if something happened. 02/25/19 06:56 The above options were discussed with the patient. She prefers to continue with a natural miscarriage. I will prescribe some Noti and Zofran that she can fill at one of the [place] pharmacies as early as 8:00 this morning. I will let the nurse and her decide when she is safe to drive home, and if it is not for a while, she can have her come and pick her up. The patient expressed great happiness with her care today. Departure - Departure Time of Disposition: 06:59 Disposition: Home, Self-Care 01 Condition: Good Clinical Impression: demise - Discharge Information *PRESCRIPTION DRUG MONITORING PROGRAM REVIEWED*: Not Applicable *COPY OF PRESCRIPTION DRUG MONITORING REPORT IN PATIENT ALEXIA: Not Applicable Prescriptions: Hydrocodone/Acetaminophen [Noti 5-325 Tablet] 1 - 2 tab PO Q6HR PRN #20 tablet PRN Reason: Pain (Severe 7-10) Ondansetron [Zofran ODT] 1 tab PO Q6H PRN #10 tab.dis PRN Reason: Nausea/Vomiting Referrals: Jayson Ford MD [Primary Care Provider] - Stephanie Stacy MD [Physician] - Forms: ED Department Discharge Additional Instructions: You were seen in the emergency room for vaginal bleeding and painful contractions associated with an intrauterine demise. Workup in the ER included blood work, which returned unremarkable. You are not anemic. On examination, your cervix was closed. The case was discussed with your Assistant Store Manager Trainee, Dr. Jayson Ford, who offered to expedite your miscarriage with Cytotec versus continue with a natural miscarriage. You chose to continue with a natural miscarriage. You may take [id number] ibuprofen, 3 tablets (600 mg) every 8 hours, as needed for discomfort. Prescriptions for the opioid pain reliever Noti and the anti-nausea medicine Zofran have been provided to you. You may take 1-2 tablets of Noti up to every 6 hours, as needed for pain not relieved by ibuprofen. If you take Noti, do not drive for 12 hours afterwards. Noti may cause constipation, so consider taking a stool softener. Dissolve one tablet of Zofran on your tongue up to every 6 hours, as needed for nausea/vomiting. Follow-up with Dr. Ford at your previously scheduled appointment this coming 03/02/2019, unless something happens and you need to be seen earlier. If any other problems, please do not hesitate to return to the ER. - My Orders Last 24 Hours: My Active Orders 02/25/19 05:00 Sodium Chloride 0.9% [Normal Saline] 1,000 ml IV ASDIRECTED - Assessment/Plan Last 24 Hours: My Active Orders 02/25/19 05:00 Sodium Chloride 0.9% [Normal Saline] 1,000 ml IV ASDIRECTED
== END 2019-02-25 07:18 | disposition home or self-care (01) ==
LOC: JD.ED 04:27
DX: O02.1 Missed abortion (principal); E66.9 Obesity, unspecified; Z91.040 Latex allergy status; Z91.048 Other nonmedicinal substance allergy status
CPT/HCPCS: 36415; 80053; 85007; 85027; 85610; 85730; 96361; 96374; 96375; 99284; J1170; J2405; J7040

== ENCOUNTER 2019-03-06 23:26 | Day surgery (SDC) | payer SELFPAY ==
[2019-03-06] MEDS ORDERED: Dextrose 5%-Lactated Ringers 1,000 ML IV SCH (23:45)
[2019-03-06] MEDS ORDERED: HYDROmorphone 1 MG/ML Syringe IVPUSH ONE (23:56)
[2019-03-06] MEDS ORDERED: Metoclopramide 10 MG/2 ML SDV IVPUSH ONE (23:56)
--- NOTE | 2019-03-07 00:01 | EDM.PDOC ---
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 Patient is known to have a true uterine demise report be at 10 weeks and 1 day gestation. This was February 16. He did develop some spotting in the days prior to the ultrasound. She was told that if she had not delivered the fetus by March 02 that she could be treated medically or with a D&C. Patient has a history of continuous miscarriages 3. 7 para 3 abortions 3 she was seen in the ED February [address] Mayer due to severe uterine contractions with associated small amount of bleeding per vagina. She did see Dr. Ford senior rd engineer today and was prescribed misoprostol. She took for 200 g tabletsx4 about 1545 hrs. today. Since then , she developed severe lower abdominal cramping pain with some diarrhea and then started to flow heavily per vagina approximate 4 hours ago. Within the last hour she did pass the fetus per vagina while seated on the toilet. She states when she placed her fingers and the introitus she thought she could feel her cervix. Has taken 3 tablets of [place] 5/325mg strength to try and alleviate the severe lower abdominal pain but has vomited the first tablet up.. She ate a piece of sausage or Torito worst about half hour ago. She had vomited up her chili that she had eaten earlier. Currently her clothing is soaked in blood. She reports that she is gushing at present. She does look pallid. Heart rate is 113 at the bedside but she is fairly anxious. BP is 146/90. Blood type reported in the chart from February 25 is positive. Onset: Today, Sudden Onset Date: 03/06/19 Onset Time: 19:00 (Started have severe lower abdominal cramping pain associated with heavy bleeding per vagina. Passage of the fetus per vagina approximately 2300 hrs.) Duration: Hour(s): Location: Reports: Other (Heavy bleeding per vagina due to miscarriage.) Quality: Reports: Sharp, Stabbing, Other (Tenormin severe sharp stabbing pain cramping pain) Severity: Severe (suprapubically.) Improves with: Reports: None (8-9 out of 10. ) Worsens with: Reports: None Context: Reports: Other (Incomplete miscarriage). Denies: Activity, Exercise, Lifting, Sick Contact, Trauma Associated Symptoms: Reports: cough w sputum, Loss of Appetite, Nausea/ Vomiting. 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 First one was vomited up.) - Related Data Allergies Allergy/AdvReac Type Severity Reaction Status Date / Time latex Allergy Severe Burning Verified 03/06/19 23:38 tape Allergy Blisters Uncoded 03/06/19 23:50 Home Meds: Home Meds Acetaminophen [Tylenol] 975 mg PO ONCALL 02/25/19 [History] Hydrocodone/Acetaminophen [[place] 5-325 Tablet] 1 - 2 tab PO Q6HR PRN #20 tablet 02/25/19 [Rx] Past Medical History - Past Health History Medical/Surgical History: Denies Medical/Surgical History HEENT History: Reports: Otitis Media Respiratory History: Reports: Asthma RECEPTION INTERVIEWER History: Reports: , Spontaneous : 7 Para: 3 (3 spontaneous miscarriages and currently miscarrying for the fourth time) Other RECEPTION INTERVIEWER History: A4 Psychiatric History: Reports: Depression Other Psychiatric History: hx of cutting Endocrine/Metabolic History: Reports: Diabetes, Gestational, Obesity/BMI 30+ Other Hematologic History: not since childhood - Past Surgical History Female Surgical History: Reports: Section Social & Family History - Family History Family Medical History: Noncontributory - Tobacco Use Smoking Status *Q: Never Smoker - Caffeine Use Caffeine Use: Reports: None - Recreational Drug Use Recreational Drug Use: No - Living Situation & Occupation Living situation: Reports: , with Spouse, with Family (3 kids) Occupation: Unemployed ED ROS GENERAL - Review of Systems Review Of Systems: See Below Constitutional: Reports: Malaise, Weakness, Fatigue, Decreased Appetite. Denies : Fever, Chills HEENT: Reports: No Symptoms Respiratory: Reports: No Symptoms Cardiovascular: Reports: Lightheadedness (She believes due to the pain.). Denies: Chest Pain, Blood Pressure Problem, Claudication, Dyspnea on Exertion, Edema, Orthopnea Endocrine: Reports: Fatigue GI/Abdominal: Reports: No Symptoms, Nausea, Vomiting (Vomited once approximate 2 and half hours ago.) : Reports: Frequency, Other (Bleeding heavily per vagina with associated severe menstrual cramps after taking misoprostol 800 g at about 1545 hrs. yesterday.) Musculoskeletal: Reports: Back Pain (Diffuse low back pain associated with menstrual cramping) Skin: Reports: Pallor Neurological: Reports: No Symptoms Psychiatric: Reports: Anxiety Hematologic/Lymphatic: Reports: No Symptoms Immunologic: Reports: No Symptoms ED EXAM - Physical Exam Exam: See Below Exam Limited By: No Limitations General Appearance: Alert, WD/WN, Moderate Distress, Other (Does appear very pallid. Temperatures 36.6 resting tachycardia at 1 13/m at the bedside expiratory 22 24/m mild hyperventilation. O2 sats 99% on room air. BP 146/90.) Eye Exam: Bilateral Eye: Normal Inspection, PERRL Throat/Mouth: Normal Inspection, Normal Lips, Normal Oropharynx Head: Atraumatic, Normocephalic Neck: Normal Inspection, Supple, Non-Tender, Full Range of Motion. No: Carotid Bruit, Lymphadenopathy (L), Lymphadenopathy (R), Thyromegaly Respiratory/Chest: Lungs Clear (Mild tachypnea due to hyperventilation.), Normal Breath Sounds, No Accessory Muscle Use, Chest Non-Tender, Respiratory Distress Cardiovascular: Normal Peripheral Pulses, No Edema, No Gallop (Resting tachycardia of 1 15/m the bedside), No JVD, No Murmur, No Rub, Tachycardia GI/Abdominal Exam: No Mass, Tender (Bowel sounds are very active in all 4 quadrants. Mild tenderness suprapubically.), Abnormal Bowel Sounds. No: No Abnormal Bruit, Pelvis Stable, Guarding, Rigid, Rebound (Female) Exam: Cervical Dilatation (Cervix is patulous.), Vaginal Bleeding ( Heavy.), Other (With speculum examination I was able to remove the vagina that was filled with clots. I was not able to remove any tissue. Using bleeding fairly rapidly per vagina). No: Normal Bimanual Exam, Normal External Exam Back Exam: Normal Inspection, Full Range of Motion. No: CVA Tenderness (L), CVA Tenderness (R) Extremities: Normal Inspection, Normal Range of Motion, Non-Tender, No Pedal Edema Neurological: Alert, Oriented, CN II-XII Intact, Normal Cognition, No Motor/ Sensory Deficits Psychiatric: Anxious Skin Exam: Pallor (Moderately pallid.) Course - Vital Signs Last Recorded V/S: Last Vital Signs Temp 36.6 C 03/06/19 23:34 Pulse 113 H 03/06/19 23:34 Resp 22 H 03/06/19 23:34 BP 146/90 H 03/06/19 23:34 Pulse Ox 99 03/06/19 23:34 - Orders/Labs/Meds Orders: Active Orders 24 hr Category Date Time Status Patient Status [ADT] Routine ADT 03/07/19 00:50 Active Notify Provider Consults [RC] ASDIRECTED Care 03/07/19 00:52 Active Verify Patient Consent Obtain [RC] PER UNIT ROUTINE Care 03/07/19 00:51 Active Consult to Physician [CONS] Stat Cons 03/07/19 00:51 Active Nothing Per Oral Diet [DIET] Diet 03/07/19 Breakfast Active TYPE AND SCREEN [BBK] Stat Lab 03/06/19 23:56 Received Doxycycline [Vibramycin] Med 03/07/19 00:50 Once 100 mg PO ONETIME ONE Lactated Ringers [Ringers, Lactated] 1,000 ml Med 03/07/19 01:00 Active IV ASDIRECTED Schedule Procedure [COMM] Urgent Oth 03/07/19 00:50 Ordered Medication Orders Doxycycline Hyclate (Vibramycin) 100 mg PO ONETIME ONE Stop: 03/07/19 00:51 Lactated Ringer's (Ringers, Lactated) 1,000 mls @ 125 mls/hr IV ASDIRECTED [facility] Last Admin: 03/07/19 01:11 Dose: 125 mls/hr Labs: Laboratory Tests 03/07/19 03/07/19 03/07/19 Range/Units 00:31 00:31 00:31 WBC 12.34 H (3.98-10.04) K/mm3 RBC 3.61 L (3.98-5.22) M/mm3 Hgb 10.2 L D (11.2-15.7) gm/dl Hct 31.7 L (34.1-44.9) % MCV 87.8 (79.4-94.8) fl MCH 28.3 (25.6-32.2) pg MCHC 32.2 (32.2-35.5) g/dl RDW Std Deviation 42.8 (36.4-46.3) fL Plt Count 430 H D (182-369) K/mm3 MPV 9.7 (9.4-12.3) fl Neut % (Auto) 75.8 H (34.0-71.1) % Lymph % (Auto) 19.0 L (19.3-51.7) % [place] % (Auto) 4.7 (4.7-12.5) % Eos % (Auto) 0.2 L (0.7-5.8) Baso % (Auto) 0.1 (0.1-1.2) % Neut # (Auto) 9.35 H (1.56-6.13) K/mm3 Lymph # (Auto) 2.35 (1.18-3.74) K/mm3 [place] # (Auto) 0.58 H (0.24-0.36) K/mm3 Eos # (Auto) 0.02 L (0.04-0.36) K/mm3 Baso # (Auto) 0.01 (0.01-0.08) K/mm3 Manual Slide Review Normal smear PT 11.0 (9.7-12.0) SECONDS INR 1.01 APTT 28 (22-31) SECONDS Sodium 138 (136-145) mEq/L Potassium 3.9 (3.5-5.1) mEq/L Chloride 103 (98-107) mEq/L Carbon Dioxide 24 (21-32) mEq/L Anion Gap 14.9 (5-15) BUN 12 (7-18) mg/dL Creatinine 0.9 (0.55-1.02) mg/dL Est Cr Clr Drug Dosing 86.33 mL/min Estimated GFR (MDRD) > 60 (>60) mL/min BUN/Creatinine Ratio 13.3 L (14-18) Glucose 143 H (74-106) mg/dL Calcium 8.8 (8.5-10.1) mg/dL Total Bilirubin 0.2 (0.2-1.0) mg/dL AST 12 L (15-37) U/L ALT 23 (14-59) U/L Alkaline Phosphatase 84 (46-116) U/L Total Protein 7.8 (6.4-8.2) g/dl Albumin 3.6 (3.4-5.0) g/dl Globulin 4.2 gm/dL Albumin/Globulin Ratio 0.9 L (1-2) HCG, Quant 382.0 mIU/mL Meds: Medications Generic Name Dose Route Start Last Admin Trade Name Freq PRN Reason Stop Dose Admin Doxycycline Hyclate 100 mg 03/07/19 00:50 Vibramycin PO 03/07/19 00:51 ONETIME ONE Lactated Ringer's 1,000 mls @ 125 mls/hr 03/07/19 01:00 03/07/19 01:11 Ringers, Lactated IV 125 mls/hr ASDIRECTED GLORIA Administration Discontinued Medications Generic Name Dose Route Start Last Admin Trade Name Freq PRN Reason Stop Dose Admin Doxycycline Hyclate 200 mg 03/07/19 00:50 03/07/19 01:12 Vibramycin PO 03/07/19 00:51 200 mg ONETIME ONE Administration Hydromorphone HCl 1 mg 03/06/19 23:56 03/07/19 00:36 Dilaudid IVPUSH 03/06/19 23:57 1 mg ONETIME ONE Administration Dextrose/Lactated Ringer's 1,000 mls @ 999 mls/hr 03/06/19 23:45 03/07/19 00: 34 Dextrose 5%-Lactated Ringers IV 999 mls/hr ASDIRECTED GLORIA Administration Methylergonovine Maleate Confirm 03/07/19 01:09 Methergine Administered 03/07/19 01:10 Dose 0.2 mg .ROUTE .STK-MED ONE Metoclopramide HCl 7.5 mg 03/06/19 23:56 03/07/19 00:35 Reglan IVPUSH 03/06/19 23:57 7.5 mg ONETIME ONE Administration - Radiology Interpretation Free Text/Narrative:: 39-year-old female presents to the ED with heavy vaginal bleeding and severe lower abdominal cramping pain. By history last normal menstrual period was around mid December of this year. Ultrasound done February 16 revealed a dated 10 weeks and 1 day with no heart tones i.e. intrauterine demise. She indicates that she did pass the fetus per vagina approximately 2300 hrs. Still cramping and bleeding very heavily per vagina. Bleeding heavily per vagina for about 2 hours prior to passage of the fetus and adenosine to slow down for short period of time. Severe lower abdominal cramping pain. Nausea and vomiting 1. Has taken 3 [place] 5/325 Milligram tablets in the last 5 hours for pain relief with minimal success. She believes the first one she vomited up. Nausea present. Lightheaded and dizzy. She does appear quite pallid. Vital signs are stable at this point time. Plan her clothing is soaked with blood. She will require a speculum exam to see if we could remove tissue from the cervical os. Routine labs collected. IV D5 LR at open. A type is known to be all positive from previous records. Will give Dilaudid 1 mg IV with Reglan 7.5 mg IV. 8 a bratwurst on a 1 approximately 2345 hrs. - Re-Assessments/Exams Free Text/Narrative Re-Assessment/Exam: 03/07/19 00:30: Removed vagina full of clots. Continues to have brisk bleeding per cervical os. No tissue removed. Case discussed with on-call detail technician Dr. Kent and he will attend the patient in the ED with a view to per performing a D&C to stop the uterine bleeding. 03/07/19 00:53 White count is slightly elevated at 12.34. Neutrophil count auto differential is 75.8%. Normal smear reported. Hemoglobin is 10.2 with hematocrit of 31.7. MCV is 87.8. Platelet count mildly elevated at 430,000. 03/07/19 01:06 Coags are normal with a PT of 11.0. INR is 1.01 and PTT is 28. 03/07/19 01:14 Chemistry shows a sodium of 138 potassium of 3.9. Chloride 103 with a bicarbonate of 24. Anion gap is 14.9. BUN is 12 with a creatinine of 0.9. GFR remains greater than 60. Glucose is 143. Calcium is 8.8. Liver function is normal. Total protein is 7.8 with albumin fraction of 3.6. Quantitative Beta hCG is 382. Dr. Najera has seen and assessed the patient with plan to take her to the OR for a D&C. Departure - Departure Time of Disposition: 01:15 Disposition: DC/Tfer to Critical Access [facility] Condition: Fair Clinical Impression: Incomplete miscarriage, Incomplete - Discharge Information *PRESCRIPTION DRUG MONITORING PROGRAM REVIEWED*: Not Applicable *COPY OF PRESCRIPTION DRUG MONITORING REPORT IN PATIENT ALEXIA: Not Applicable - My Orders Last 24 Hours: My Active Orders 03/06/19 23:56 TYPE AND SCREEN [BBK] Stat 03/07/19 00:51 Consult to Physician [CONS] Stat 03/07/19 00:52 Notify Provider Consults [RC] ASDIRECTED - Assessment/Plan Last 24 Hours: My Active Orders 03/06/19 23:56 TYPE AND SCREEN [BBK] Stat 03/07/19 00:51 Consult to Physician [CONS] Stat 03/07/19 00:52 Notify Provider Consults [RC] ASDIRECTED
[2019-03-07] MEDS ORDERED: Doxycycline 100 MG Cap PO ONE ×2 (00:50→03:00)
[2019-03-07] MEDS ORDERED: Doxycycline 100 MG Cap ONE (00:58)
[2019-03-07] MEDS ORDERED: Lactated Ringers 1,000 ML IV SCH (01:00)
--- NOTE | 2019-03-07 01:05 | PCM.PREANE ---
Preanesthetic Assessment - Anesthesia/Transfusion/Family Hx Anesthesia History: Prior Anesthesia Without Reaction Family History of Anesthesia Reaction: No Transfusion History: No Prior Transfusion(s) Intubation History: Unknown - Review of Systems General: Fatigue Pulmonary: No Symptoms (History of asthma-seasonal very stable. ETOH: occasionally) Cardiovascular: No Symptoms, Palpitations, Lightheadedness (Possibly due to blood loss or pain medication) Gastrointestinal: No Symptoms, Constipation, Decreased Appetite, Nausea, Vomiting Neurological: No Symptoms Other: Reports: Easy Bruising, Sinus Problem (allergic rhinitis), Depression ( history of depression), Anxiety (history of anxiety) - Physical Assessment NPO Status Date: 03/06/19 NPO Status Time: 20:00 Vital Signs: Last Vital Signs Temp 36.6 C 03/06/19 23:34 Pulse 113 H 03/06/19 23:34 Resp 22 H 03/06/19 23:34 BP 146/90 H 03/06/19 23:34 Pulse Ox 99 03/06/19 23:34 Height: 1.73 m Weight: 129.274 kg ASA Class: 2E Mental Status: Alert & Oriented x3 Airway Class: Mallampati = 2 Dentition: Reports: Normal Dentition, Caries Thyro-Mental Finger Breadths: 3 Mouth Opening Finger Breadths: 3 ROM/Head Extension: Full Lungs: Clear to Auscultation, Normal Respiratory Effort Cardiovascular: Regular Rate, Regular Rhythm, No Murmurs - Lab Values: Laboratory Last Values WBC 12.34 K/mm3 (3.98-10.04) H 03/07/19 00:31 RBC 3.61 M/mm3 (3.98-5.22) L 03/07/19 00:31 Hgb 10.2 gm/dl (11.2-15.7) L D 03/07/19 00:31 Hct 31.7 % (34.1-44.9) L 03/07/19 00:31 MCV 87.8 fl (79.4-94.8) 03/07/19 00:31 MCH 28.3 pg (25.6-32.2) 03/07/19 00:31 MCHC 32.2 g/dl (32.2-35.5) 03/07/19 00:31 RDW Std Deviation 42.8 fL (36.4-46.3) 03/07/19 00:31 Plt Count 430 K/mm3 (182-369) H D 03/07/19 00:31 MPV 9.7 fl (9.4-12.3) 03/07/19 00:31 Neut % (Auto) 75.8 % (34.0-71.1) H 03/07/19 00:31 Lymph % (Auto) 19.0 % (19.3-51.7) L 03/07/19 00:31 Beck[place] % (Auto) 4.7 % (4.7-12.5) 03/07/19 00:31 Eos % (Auto) 0.2 (0.7-5.8) L 03/07/19 00:31 Baso % (Auto) 0.1 % (0.1-1.2) 03/07/19 00:31 Neut # (Auto) 9.35 K/mm3 (1.56-6.13) H 03/07/19 00:31 Lymph # (Auto) 2.35 K/mm3 (1.18-3.74) 03/07/19 00:31 Beckham # (Auto) 0.58 K/mm3 (0.24-0.36) H 03/07/19 00:31 Eos # (Auto) 0.02 K/mm3 (0.04-0.36) L 03/07/19 00:31 Baso # (Auto) 0.01 K/mm3 (0.01-0.08) 03/07/19 00:31 Manual Slide Review Normal smear 03/07/19 00:31 PT 11.0 SECONDS (9.7-12.0) 03/07/19 00:31 INR 1.01 03/07/19 00:31 APTT 28 SECONDS (22-31) 03/07/19 00:31 Above labs reviewed and noted and within acceptable ranges to proceed with scheduled procedure. - Allergies Allergies/Adverse Reactions: Allergies Allergy/AdvReac Type Severity Reaction Status Date / Time latex Allergy Severe Burning Verified 03/06/19 23:38 tape Allergy Blisters Uncoded 03/06/19 23:50 - Anesthesia Plan Pre-Op Medication Ordered: None - Acknowledgements Anesthesia Type Planned: General Anesthesia Pt an Appropriate Candidate for the Planned Anesthesia: Yes Alternatives and Risks of Anesthesia Discussed w Pt/Guardian: Yes Pt/Guardian Understands and Agrees with Anesthesia Plan: Yes PreAnesthesia Questionnaire - Past Health History Medical/Surgical History: Denies Medical/Surgical History HEENT History: Reports: Otitis Media Respiratory History: Reports: Asthma 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: , Spontaneous Other OB/BYN History: A4 Psychiatric History: Reports: Depression Other Psychiatric History: hx of cutting Endocrine/Metabolic History: Reports: Diabetes, Gestational, Obesity/BMI 30+ Other Hematologic History: not since childhood - Past Surgical History Female Surgical History: Reports: Section - SUBSTANCE USE Smoking Status *Q: Never Smoker Recreational Drug Use History: No - HOME MEDS Home Medications: Home Meds Acetaminophen [Tylenol] 975 mg PO ONCALL 02/25/19 [History] Hydrocodone/Acetaminophen [[place] 5-325 Tablet] 1 - 2 tab PO Q6HR PRN #20 tablet 02/25/19 [Rx] - CURRENT (IN HOUSE) MEDS Current Meds: Current Medications Doxycycline Hyclate (Vibramycin) 100 mg PO ONETIME ONE Stop: 03/07/19 00:51 Lactated Ringer's (Ringers, Lactated) 1,000 mls @ 125 mls/hr IV ASDIRECTED [facility] Discontinued Medications Doxycycline Hyclate (Vibramycin) 200 mg PO ONETIME ONE Stop: 03/07/19 00:51 Hydromorphone HCl (Dilaudid) 1 mg IVPUSH ONETIME ONE Stop: 03/06/19 23:57 Last Admin: 03/07/19 00:36 Dose: 1 mg Dextrose/Lactated Ringer's (Dextrose 5%-Lactated Ringers) 1,000 mls @ 999 mls/ hr IV ASDIRECTED [facility] Last Admin: 03/07/19 00:34 Dose: 999 mls/hr Metoclopramide HCl (Reglan) 7.5 mg IVPUSH ONETIME ONE Stop: 03/06/19 23:57 Last Admin: 03/07/19 00:35 Dose: 7.5 mg
[2019-03-07] MEDS ORDERED: Methylergonovine 0.2 MG/1 ML Amp ONE (01:09)
--- NOTE | 2019-03-07 01:16 | PCM.HP.2 ---
H&P History of Present Illness - General Date of Service: 03/07/19 Admit Problem/Dx: Admission Diagnosis/Problem Admission Diagnosis/Problem Incomplete Source of Information: Patient History Limitations: Reports: No Limitations - History of Present Illness Initial Comments - Free Text/Narative: Arina Ochoa is a 39 year old female who presented to the ED for evaluation of abnormal uterine bleeding in the setting of possible incomplete . Patient was previously diagnosed with a missed at 7 weeks 6 days by ultrasound on 02/25/2019. There was no cardiac activity on ultrasound. She did not pass the spontaneously over the course of the next week and was seen by Dr. Ford this last week. She was given instructions for use of Cytotec for medical induction for the . She states that yesterday afternoon on 03/06/2019 she took the Cytotec 800 mcg orally at around 3:40 PM. She states that she started to have increased amounts of cramping and pain over the next couple of hours and had some bleeding for a while and then this start for 2 hours. She then passed a larger piece of tissue that she suspected was the into the toilet between 9: 30 to 10:30 PM. Since then she has continued to have heavy bleeding with passage of marbles to baseball sized clots and heavy bleeding with soaking a pad multiple times since passage of the tissue. She has been having ongoing cramping since that time. She reports that she was feeling slightly lightheaded and dizzy when she was arriving to the emergency department. The emergency room provider stated that the vagina was full of blood clots and there was brisk bleeding coming from the cervix. Onset of Symptoms: Reports: Sudden Symptom Onset Date: 03/06/19 Symptom Onset Time: 22:00 Duration of Symptoms: Reports: Hour(s):, Heavy (bleeding) Location: Reports: Pelvis Quality: Reports: Pressure, Throbbing Severity: Severe Associated Symptoms: Reports: Other (Dizziness). 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: , 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 Other OB/BYN History: A4 Psychiatric History: Reports: Depression Other Psychiatric History: hx of cutting Endocrine/Metabolic History: Reports: Diabetes, Gestational, Obesity/BMI 30+ Other Hematologic History: not since childhood - Past Surgical History HEENT Surgical History: Reports: Oral Surgery (Tooth extraction) Female Surgical History: Reports: Section (x 3) Social & Family History - Family History Family Medical History: Noncontributory - Tobacco Use Smoking Status *Q: Never Smoker - Caffeine Use Caffeine Use: Reports: None - Alcohol Use Alcohol Use History: Yes Number of Drinks Per Day: 1 (Patient had several drinks earlier this week but none tonight) Alcohol Use Frequency: Rarely - Recreational Drug Use Recreational Drug Use: No - Living Situation & Occupation Living situation: Reports: , with Spouse, with Family (3 kids) Occupation: Unemployed H&P Review of Systems - Review of Systems: Review Of Systems: See Below General: Denies: Fever, Chills HEENT: Denies: Rhinitis, Sinus Congestion, Sore Throat, Vertigo, Visual Changes Pulmonary: Denies: Shortness of Breath, Wheezing Cardiovascular: Denies: Chest Pain, Palpitations, Dyspnea on Exertion, Orthopnea Gastrointestinal: Reports: Abdominal Pain. Denies: Constipation, Diarrhea, Nausea, Vomiting Genitourinary: Denies: Dysuria, Frequency, Burning, Pain, Urgency Musculoskeletal: Denies: Back Pain Skin: Denies: Rash, Lesions Neurological: Reports: Dizziness. Denies: Headache Hematologic/Lymphatic: Denies: Anemia Exam - Exam Exam: See Below - Vital Signs Vital Signs: Last Vital Signs Temp 36.6 C 03/06/19 23:34 Pulse 113 H 03/06/19 23:34 Resp 22 H 03/06/19 23:34 BP 146/90 H 03/06/19 23:34 Pulse Ox 99 03/06/19 23:34 Weight: 129.274 kg - Exam General: Alert, Oriented, Cooperative HEENT: Conjunctiva Clear, EOMI Neck: Supple, Trachea Midline Lungs: Clear to Auscultation, Normal Respiratory Effort Cardiovascular: Regular Rate, Regular Rhythm GI/Abdominal Exam: Soft, Non-Tender, No Distention. No: Guarding, Rigid, Rebound (Female) Exam: Vaginal Bleeding (on perineum) Extremities: Normal Inspection, Non-Tender, No Pedal Edema Skin: Warm, Dry, Intact Psychiatric: Alert, Normal Affect, Normal Mood - Patient Data Lab Results Last 24 hrs: Laboratory Results - last 24 hr 03/07/19 03/07/19 03/07/19 Range/Units 00:31 00:31 00:31 WBC 12.34 H (3.98-10.04) K/mm3 RBC 3.61 L (3.98-5.22) M/mm3 Hgb 10.2 L D (11.2-15.7) gm/dl Hct 31.7 L (34.1-44.9) % MCV 87.8 (79.4-94.8) fl MCH 28.3 (25.6-32.2) pg MCHC 32.2 (32.2-35.5) g/dl RDW Std Deviation 42.8 (36.4-46.3) fL Plt Count 430 H D (182-369) K/mm3 MPV 9.7 (9.4-12.3) fl Neut % (Auto) 75.8 H (34.0-71.1) % Lymph % (Auto) 19.0 L (19.3-51.7) % [place] % (Auto) 4.7 (4.7-12.5) % Eos % (Auto) 0.2 L (0.7-5.8) Baso % (Auto) 0.1 (0.1-1.2) % Neut # (Auto) 9.35 H (1.56-6.13) K/mm3 Lymph # (Auto) 2.35 (1.18-3.74) K/mm3 [place] # (Auto) 0.58 H (0.24-0.36) K/mm3 Eos # (Auto) 0.02 L (0.04-0.36) K/mm3 Baso # (Auto) 0.01 (0.01-0.08) K/mm3 Manual Slide Review Normal smear PT 11.0 (9.7-12.0) SECONDS INR 1.01 APTT 28 (22-31) SECONDS Sodium 138 (136-145) mEq/L Potassium 3.9 (3.5-5.1) mEq/L Chloride 103 (98-107) mEq/L Carbon Dioxide 24 (21-32) mEq/L Anion Gap 14.9 (5-15) BUN 12 (7-18) mg/dL Creatinine 0.9 (0.55-1.02) mg/dL Est Cr Clr Drug Dosing 86.33 mL/min Estimated GFR (MDRD) > 60 (>60) mL/min BUN/Creatinine Ratio 13.3 L (14-18) Glucose 143 H (74-106) mg/dL Calcium 8.8 (8.5-10.1) mg/dL Total Bilirubin 0.2 (0.2-1.0) mg/dL AST 12 L (15-37) U/L ALT 23 (14-59) U/L Alkaline Phosphatase 84 (46-116) U/L Total Protein 7.8 (6.4-8.2) g/dl Albumin 3.6 (3.4-5.0) g/dl Globulin 4.2 gm/dL Albumin/Globulin Ratio 0.9 L (1-2) HCG, Quant 382.0 mIU/mL Result Diagrams: 03/07/19 00:31 03/07/19 00:31 - Problem List (1) Incomplete SNOMED Code(s): 485456844 ICD Code: O03.4 - INCOMPLETE SPONTANEOUS WITHOUT COMPLICATION Status: Acute Current Visit: Yes Problem List Initiated/Reviewed/Updated: Yes Orders Last 24hrs: Active Orders 24 hr Category Date Time Status Patient Status [ADT] Routine ADT 03/07/19 00:50 Active Notify Provider Consults [RC] ASDIRECTED Care 03/07/19 00:52 Active Verify Patient Consent Obtain [RC] PER UNIT ROUTINE Care 03/07/19 00:51 Active Consult to Physician [CONS] Stat Cons 03/07/19 00:51 Active Nothing Per Oral Diet [DIET] Diet 03/07/19 Breakfast Active TYPE AND SCREEN [BBK] Stat Lab 03/06/19 23:56 Received Doxycycline [Vibramycin] Med 03/07/19 00:50 Once 100 mg PO ONETIME ONE Lactated Ringers [Ringers, Lactated] 1,000 ml Med 03/07/19 01:00 Active IV ASDIRECTED Schedule Procedure [COMM] Urgent Oth 03/07/19 00:50 Ordered Medication Orders Doxycycline Hyclate (Vibramycin) 100 mg PO ONETIME ONE Stop: 03/07/19 00:51 Lactated Ringer's (Ringers, Lactated) 1,000 mls @ 125 mls/hr IV ASDIRECTED GLORIA Assessment/Plan Comment:: Arina Ochoa is a 39 year old 033 with incomplete at 7 weeks 6 days by ultrasound. She has had abnormal uterine bleeding with heavy bleeding after passing some of the products of conception. * Patient with ongoing bleeding and suspected incomplete . Patient to have suction dilation and curettage. Risks, benefits and alternatives were discussed with patient. Consents were signed for suction dilation and curettage * Patient to be nothing by mouth at this time * LR@125 mL per hour * CBC, CMP and other labs pending * Type and screen obtained * Patient should have doxycycline 200 mg by mouth prior to procedure and doxycycline 100 mg by mouth after procedure * Patient will likely be able to be discharged following procedure Donte Najera M.D. 1:22 AM 03/07/2019 - Mortality Measure Prognosis:: Good
[2019-03-07] MEDS ORDERED: Ketorolac 30 MG/ML SDV ONE (01:39)
[2019-03-07] MEDS ORDERED: Lactated Ringers 1,000 ML ONE (01:39)
[2019-03-07] MEDS ORDERED: Ondansetron 4 MG/2 ML SDV ONE (01:39)
[2019-03-07] MEDS ORDERED: Lidocaine 1% 6 ML ONE (01:39)
[2019-03-07] MEDS ORDERED: HYDROmorphone 0.5 MG/0.5 ML Syringe ONE (01:39)
[2019-03-07] MEDS ORDERED: Dexamethasone 4 MG/ML 5 ML MDV ONE (01:39)
[2019-03-07] MEDS ORDERED: Midazolam 1 MG/ML 2 ML SDV ONE (01:40)
[2019-03-07] MEDS ORDERED: Propofol 200 MG/20 ML SDV ONE ×2 (01:40→01:45)
[2019-03-07] MEDS ORDERED: fentaNYL 100 MCG/2 ML SDV ONE (01:40)
[2019-03-07] MEDS ORDERED: Succinylcholine/Normal Saline 100 MG/5 ML Syringe ONE (01:41)
[2019-03-07] MEDS ORDERED: ePHEDrine 50 MG/ML SDV IVPUSH PRN (02:10)
[2019-03-07] MEDS ORDERED: diphenhydrAMINE 50 MG/ML SDV IVPUSH PRN (02:10)
[2019-03-07] MEDS ORDERED: HYDROmorphone 0.5 MG/0.5 ML Syringe IVPUSH PRN (02:10)
[2019-03-07] MEDS ORDERED: fentaNYL 100 MCG/2 ML SDV IVPUSH PRN (02:10)
[2019-03-07] MEDS ORDERED: Ondansetron 4 MG/2 ML SDV IVPUSH PRN (02:10)
[2019-03-07] MEDS ORDERED: Phenylephrine 1 MG in Sodium Chloride 0.9% 10 ML IV SCH (02:15)
--- NOTE | 2019-03-07 02:40 | PCM.POSTAN ---
POST ANESTHESIA ASSESSMENT - MENTAL STATUS Mental Status: Alert - VITAL SIGNS Vital Signs: Last Vital Signs Temp 99.2f 03/06/19231 Pulse 101 03/06/192 Resp 14 03/06/19231 BP 144/71 03/06/19231 Pulse Ox 100 03/06/19231 - RESPIRATORY Respiratory Status: Respiratory Rate WNL, Airway Patent, O2 Saturation Stable, Supplemental Oxygen - CARDIOVASCULAR CV Status: Pulse Rate WNL, Blood Pressure Stable - GASTROINTESTINAL GI Status: No Symptoms - POST OP HYDRATION Hydration Status: Adequate & Stable
--- NOTE | 2019-03-07 02:41 | PCM.OPNOTE ---
- General Post-Op/Procedure Note Date of Surgery/Procedure: 03/07/19 Operative Procedure(s): Suction curettage Findings: Grossly normal-appearing multiparous cervix that was dilated on bimanual exam. Moderate amount of tissue removed with suction curettage. Good uterine contractility after procedure with thin endometrial stripe on transabdominal ultrasound measuring 1.03 cm. Pre Op Diagnosis: Incomplete Post-Op Diagnosis: Same Anesthesia Technique: General ET Tube Primary Surgeon: Donte Najera Anesthesia Provider: Juanis Jensen Pathology: Products of conception after procedure Fluid Replacement, Intraop: 1,300 Output, Urine Amount: 0 (Voided prior to procedure) EBL in mLs: 100 Complications: None Condition: Good Free Text/Narrative:: Procedure in Detail: Patient was seen in the emergency department and diagnosed with an incomplete . She was counseled on risks, benefits and alternatives of the procedure and consents were signed prior to going back to the OR. She was taken back to the OR and given general anesthesia with endotracheal tube that was placed without difficulty. She was placed in dorsal lithotomy position using yellowfin stirrups. She was prepped and draped in a normal sterile fashion. A weighted speculum was placed in the vagina and the cervix was visualized. The anterior lip of the cervix was grasped with an Allis clamp. The cervix was noted to be dilated at this time and did not require any dilation. The vacuum was tested and reached an appropriate suction level. A 8 mm suction curettage was then placed into the uterine cavity and suction applied. The uterine cavity was suctioned circumferentially until a good cri was felt in all directions. The tissue that was removed was sent to pathology. Patient was given Methergine 250 mcg IM at this time. The procedure was complete at this time and the tenaculum was removed from the cervix and good hemostasis was noted from the tenaculum sites. All instruments were removed from the vagina. All needle and sponge counts were correct x 2. The patient was awoken and taken back to the recovery room in stable condition. She was given an 200 mg of doxycycline PO. She was not given doxycycline prior to procedure due to the need for gastric suction with administration of anesthesia. She will be discharged home with Cytotec 400 mcg orally every 6 hours for uterine tone. The patient will be discharged home when she is ambulating, tolerating PO, pain is well controlled with PO medications and she is voiding normally. She will follow up in the clinic within the next 2-3 weeks. She was given strict precautions to return if she is having severe vaginal bleeding of more than 1 pad per hour for three hours, uncontrollable pain/nausea /vomiting or if she is having a fever greater than 100.4 Louise Najera MD 2:45 AM 03/07/2019
--- NOTE | 2019-03-07 02:57 | PCM48HPAN ---
Post Anesthesia Note - EVALUATION WITHIN 48HRS OF ANESTHETIC Vital Signs in Normal Range: Yes Patient Participated in Evaluation: Yes Respiratory Function Stable: Yes Airway Patent: Yes Cardiovascular Function Stable: Yes Hydration Status Stable: Yes Pain Control Satisfactory: Yes Nausea and Vomiting Control Satisfactory: Yes Mental Status Recovered: Yes Vital Signs: Last Vital Signs Temp 36.6 C 03/06/19 23:34 Pulse 113 H 03/06/19 23:34 Resp 22 H 03/06/19 23:34 BP 146/90 H 03/06/19 23:34 Pulse Ox 99 03/06/19 23:34
[2019-03-07] MEDS ORDERED: Acetaminophen/HYDROcodone 325-5 MG Tab PO PRN (03:16)
[2019-03-07 08:10] VITALS: BP 141/70; PULSE 82
== END 2019-03-07 | disposition home or self-care (01) ==
LOC: JD.ED 23:26 → JD.SDS 03-07 00:50
PROVIDERS: ATTEND Obstetrics & Gynecology
DX: O03.4 Incomplete spontaneous abortion without complication (principal); J45.909 Unspecified asthma, uncomplicated; K21.9 Gastro-esophageal reflux disease without esophagitis; Z91.040 Latex allergy status; Z91.048 Other nonmedicinal substance allergy status
CPT/HCPCS: 01965; 36415; 80053; 84702; 85025; 85610; 85730; 86850; 86900; 86901; 96361; 96374; 96375; 99284-25; 99285; A9270-GY; J0330; J1100; J1170; J1885; J2001; J2210; J2250; J2405; J2704; J2765; J3010; J7042; J7120

== ENCOUNTER 2019-10-18 08:00 | Inpatient (IN) | payer MEDICAID ==
[2019-10-18] MEDS ORDERED: Metoclopramide 10 MG/2 ML SDV IVPUSH ONE (13:35)
[2019-10-18] MEDS ORDERED: Sodium Chloride 0.9% 10 ML Syringe FLUSH PRN (13:35)
[2019-10-18] MEDS ORDERED: Citric Acid/Sodium Citrate Solution 30 ML Cup PO ONE (13:35)
[2019-10-18] MEDS ORDERED: ceFAZolin 2 GM in Premix Bag 1 BAG IV ONE (13:35)
[2019-10-18] MEDS ORDERED: Oxytocin/Lactated Ringers 10 UNIT/1,000 ML BAG IV SCH (13:45)
[2019-10-18] MEDS ORDERED: Lactated Ringers 1,000 ML IV SCH (13:45)
[2019-10-18] MEDS ORDERED: Oxytocin 10 Units/1 ML SDV ONE (14:25)
[2019-10-18] MEDS ORDERED: Morphine PF 1 MG/ML Amp ONE (14:25)
[2019-10-18] MEDS ORDERED: Lactated Ringers 2,000 ML ONE (14:25)
[2019-10-18] MEDS ORDERED: Ondansetron 4 MG/2 ML SDV ONE (14:25)
[2019-10-18] MEDS ORDERED: ceFAZolin 1 GM Vial ONE (14:25)
[2019-10-18] MEDS ORDERED: Ketorolac 30 MG/ML SDV ONE (14:25)
[2019-10-18] MEDS ORDERED: Bupivacaine 0.5% 30 ML SDV ONE (14:32)
[2019-10-18] MEDS ORDERED: fentaNYL 100 MCG/2 ML SDV IVPUSH PRN (16:08)
[2019-10-18] MEDS ORDERED: diphenhydrAMINE 50 MG/ML SDV IVPUSH PRN ×2 (16:08→16:56)
[2019-10-18] MEDS ORDERED: Ondansetron 4 MG/2 ML SDV IVPUSH PRN (16:08)
--- NOTE | 2019-10-18 16:08 | PCM.PREANE ---
Preanesthetic Assessment - Procedure Proposed Procedure: Hysterotomy nonviable fetus 22 weeks - Anesthesia/Transfusion/Family Hx Anesthesia History: Prior Anesthesia Without Reaction Family History of Anesthesia Reaction: No Transfusion History: No Prior Transfusion(s) Intubation History: Unknown - Review of Systems General: No Symptoms Pulmonary: No Symptoms (Asthma, inhaler used infrequently. Well controlled. ) Cardiovascular: No Symptoms Gastrointestinal: No Symptoms Neurological: No Symptoms Other: Reports: None (Obesity) - Physical Assessment NPO Status Date: 10/18/19 NPO Status Time: 12:00 (Water) Height: 1.73 m Weight: 114.305 kg ASA Class: 2 Mental Status: Alert & Oriented x3 Airway Class: Mallampati = 2 Dentition: Reports: Normal Dentition Thyro-Mental Finger Breadths: 3 Mouth Opening Finger Breadths: 3 ROM/Head Extension: Full Lungs: Clear to Auscultation, Normal Respiratory Effort Cardiovascular: Regular Rate, Regular Rhythm - Allergies Allergies/Adverse Reactions: Allergies Allergy/AdvReac Type Severity Reaction Status Date / Time latex Allergy Severe Burning Verified 03/06/19 23:38 tape Allergy Blisters Uncoded 03/06/19 23:50 - Acknowledgements Anesthesia Type Planned: Spinal Pt an Appropriate Candidate for the Planned Anesthesia: Yes Alternatives and Risks of Anesthesia Discussed w Pt/Guardian: Yes Pt/Guardian Understands and Agrees with Anesthesia Plan: Yes Additional Comments: Arina is crying appropriately during her interview. She has declined anxiolytic medication at this time for fear she won't remember seeing her baby boy. Condolence and support offered throughout. 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 OB/BYN History: demise at 22 weeks Psychiatric History: Reports: Depression, Other (See Below) Other Psychiatric History: cut herself a week ago, states has not done that in years, bandaid to right upper thigh, would not remove it while in room Endocrine/Metabolic History: Reports: Diabetes, Gestational, Obesity/BMI 30+ Other Hematologic History: not since childhood - Past Surgical History Female Surgical History: Reports: Section - SUBSTANCE USE Smoking Status *Q: Never Smoker Second Hand Smoke Exposure: No Recreational Drug Use History: No - HOME MEDS Home Medications: Home Meds Aspirin [Daisy Chewable] 81 mg PO DAILY 10/18/19 [History] Folic Acid 1 mg PO DAILY 10/18/19 [History] Iron,Carb/Vit C/Vit B12/Folic [Iron 100 Plus Tablet] 1 each PO DAILY 10/18/19 [ History] Pnv No.95/Ferrous Fum/Folic AC [ Tablet] 1 each PO DAILY 10/18/19 [ History] - CURRENT (IN HOUSE) MEDS Current Meds: Current Medications Lactated Ringer's (Ringers, Lactated) 1,000 mls @ 125 mls/hr IV ASDIRECTED GLORIA Last Admin: 10/18/19 14:20 Dose: 125 mls/hr Oxytocin/Lactated Ringer's (Pitocin In Lr 10 Units/1,000 Ml) 10 unit in 1,000 mls @ 100 mls/hr IV ASDIRECTED [facility] Sodium Chloride (Saline Flush) 10 ml FLUSH ASDIRECTED PRN PRN Reason: Keep Vein Open Discontinued Medications Bupivacaine HCl (Marcaine 0.5%) Confirm Administered Dose 30 ml .ROUTE .STK-MED ONE Stop: 10/18/19 14:33 Cefazolin Sodium (Ancef) Confirm Administered Dose 2 gm .ROUTE .STK-MED ONE Stop: 10/18/19 14:26 Citric Acid/Sodium Citrate (Bicitra Solution) 30 ml PO ONETIME ONE Stop: 10/18/19 13:36 Last Admin: 10/18/19 14:32 Dose: 30 ml Cefazolin Sodium/Dextrose 2 gm (/ Premix) 50 mls @ 100 mls/hr IV ONETIME ONE Stop: 10/18/19 14:04 Lactated Ringer's (Ringers, Lactated) Confirm Administered Dose 2,000 mls @ as directed .ROUTE .STK-MED ONE Stop: 10/18/19 14:26 Ketorolac Tromethamine (Toradol) Confirm Administered Dose 30 mg .ROUTE .STK- MED ONE Stop: 10/18/19 14:26 Metoclopramide HCl (Reglan) 10 mg IVPUSH ONETIME ONE Stop: 10/18/19 13:36 Last Admin: 10/18/19 14:33 Dose: 10 mg Morphine Sulfate (Duramorph Pf) Confirm Administered Dose 1 mg .ROUTE .STK-MED ONE Stop: 10/18/19 14:26 Ondansetron HCl (Zofran) Confirm Administered Dose 4 mg .ROUTE .STK-MED ONE Stop: 10/18/19 14:26 Oxytocin (Pitocin) Confirm Administered Dose 20 unit .ROUTE .STK-MED ONE Stop: 10/18/19 14:26
--- NOTE | 2019-10-18 16:09 | PCM.POSTAN ---
POST ANESTHESIA ASSESSMENT - MENTAL STATUS Mental Status: Alert, Oriented - VITAL SIGNS Vital Signs: 116/61 74 15 100% 97.5F - RESPIRATORY Respiratory Status: Respiratory Rate WNL, Airway Patent, O2 Saturation Stable - CARDIOVASCULAR CV Status: Pulse Rate WNL, Blood Pressure Stable - GASTROINTESTINAL GI Status: No Symptoms - PAIN Pain Score: 0 - POST OP HYDRATION Hydration Status: Adequate & Stable
[2019-10-18] MEDS ORDERED: Meperidine 50 MG/ML Vial IVPUSH ONE (16:29)
[2019-10-18] MEDS ORDERED: Naloxone 0.4 MG/ML SDV IVPUSH PRN (16:56)
[2019-10-18] MEDS ORDERED: Ondansetron 4 MG/2 ML SDV IV PRN (16:56)
[2019-10-18] MEDS ORDERED: ePHEDrine 50 MG/ML SDV IVPUSH PRN (16:56)
--- NOTE | 2019-10-18 16:59 | PCM.OPNOTE ---
- General Post-Op/Procedure Note Date of Surgery/Procedure: 10/18/19 Operative Procedure(s): Repeat resection (hysterotomy) for a nonviable baby. Findings: Lund, nonviable, male Apgars of 0/0, weight of 441 g (15.6 ounces was delivered at 1529 hrs. on 10/18/2019. No cord or placental abnormalities were noted. Placenta was sent for evaluation. Etiology of the demise not identified. Pre Op Diagnosis: 22-4/7 week intrauterine , nonviable baby Post-Op Diagnosis: Same Anesthesia Technique: Spinal Other Anesthesia Type: Marcaine 0.5%20 mLlocal Primary Surgeon: Fco Sibley Secondary Surgeon: Karissa Varela Anesthesia Provider: Chelsy Linares Reason Leather Crafter Was Necessary: Retraction, assistance, patient safety, quality of care. Fluid Replacement, Intraop: 2,000 Output, Urine Amount: 50 EBL in mLs: 500 Drain/Tube Comments:: Indwelling bladder catheter Complications: None Condition: Good Free Text/Narrative:: Surgery duration: 28 minutes Procedure: The patient is appropriately consented. Patient was transferred to the room and placed in a sitting position. Spinal anesthesia was administered. After confirmation of adequate anesthesia patient was placed in a supine position with a wedge under her right side to facilitate left lateral positioning. The patient was prepped and draped in usual fashion after Dunn catheter was already placed . The anesthetic was checked and found to be adequate. 20 mL of Marcaine 0.5% was injected locally in the Pfannenstiel incision site. The Pfannenstiel skin incision was then made and carried down through skin, subcutaneous and fascial layers. The fascia was then undermined superiorly and inferiorly to allow for adequate operating room. The recti muscles midline and preperitoneal fat was bluntly dissected. Moderate amount of scarring was identified. Peritoneal cavity was entered longitudinally. The vesicouterine peritoneum was then incised transversely and bladder flap was developed. Myometrium was incised transversely to the level of the amniotic sac. This incision was extended bilaterally in a blunt fashion. The amniotic sac was then ruptured resulting in clear yellow amniotic fluid. A hand is placed in the low uterine segment and the baby's feet was brought forth through the incision. The baby was completely delivered in a routine fashion. Placenta was expressed after cord blood was obtained. Uterus was then exteriorized to allow for easier closure. The cervix was assessed and found to be dilated adequately to allow egress of blood. The uterus was closed in 2 layers. The first layer a running locked suture of 0 Monocryl, the second layer a running locked vertical mattress suture of 0 Monocryl. [id number] suture was placed at mid incision to control 1 bleeder. Hemostasis confirmed at this time. Sponge instrument needle counts are correct. The uterus was returned to the abdominal cavity and lateral gutters were cleared of blood. Once again sponge needle counts are correct. The anterior abdominal wall was closed with a #1 PDS suture from angle to angle. The subcutaneous area was found to be free of any bleeders. interrupted sutures of 3-0 Monocryl were used to reapproximate the subcutaneous layer.Skin was closed with a running subcuticular stitch of 3-0 Monocryl in a vertical mattress suture fashion using a Domingo needle. Prineo mesh /glue was then applied to further approximate the incision. It should be noted that patient received 2 g of Ancef preoperatively for infection prophylaxis and had Pitocin infused after delivery of the placenta to facilitate uterine contraction. She also had sequential compression stockings in place for DVT prophylaxis. Patient was discharged from the operating room in satisfactory condition.
[2019-10-18] MEDS ORDERED: Dextrose 5%-Lactated Ringers 1,000 ML IV SCH (17:00)
[2019-10-18] MEDS ORDERED: Ibuprofen 800 MG Tab PO SCH (17:00)
[2019-10-18] MEDS: Simethicone 80 MG Tab.Chew PO SCH ×2 (18:35→20:09)
[2019-10-18] MEDS: Acetaminophen/oxyCODONE 325-5 MG Tab PO PRN ×2 (20:00→23:54)
[2019-10-18] MEDS: Docusate Sodium 100 MG Cap PO PRN (20:09)
[2019-10-19] MEDS: Ibuprofen 800 MG Tab PO SCH ×3 (02:02→18:13)
--- NOTE | 2019-10-19 08:15 | PCM48HPAN ---
Post Anesthesia Note - EVALUATION WITHIN 48HRS OF ANESTHETIC Vital Signs in Normal Range: Yes Patient Participated in Evaluation: Yes Respiratory Function Stable: Yes Airway Patent: Yes Cardiovascular Function Stable: Yes Hydration Status Stable: Yes Pain Control Satisfactory: Yes Nausea and Vomiting Control Satisfactory: Yes Mental Status Recovered: Yes Vital Signs: Last Vital Signs Temp 36.8 C 10/19/19 07:59 Pulse 71 10/19/19 07:59 Resp 14 10/19/19 08:00 BP 114/66 10/19/19 07:59 Pulse Ox 98 10/19/19 08:00 - COMMENTS/OBSERVATIONS Free Text/Narrative:: no anesthesia complications noted
--- NOTE | 2019-10-19 08:37 | PCM.SN.2 ---
- Free Text/Narrative Note: note: Operative day 1-status post hysterotomy for nonviable 22 week baby. Patient is doing well in the postoperative period with the exception that she has some depression symptoms. Reports depression after her second baby. She is interested in starting on medications and has used sertraline in the past with success. Minimal lochia, voiding well, ambulated without problems. Nursing without concerns. Patient is afebrile, vital signs are stable Abdomen is flat, soft, uterus is below the umbilicus and is firm and nontender. Positive bowel sounds are noted. Prineo mesh intact and dry. Legs are nontender. Assessment: Postoperative day 1. 1. Physically doing well. Emotionally having some depression symptoms. At risk for depression because of present state of affairs/situation and because of history of depression after second . Plan: 1. Routine post operative care. 2. We'll begin sertraline 50 mg by mouth daily 3. guest services agent consult 4.Increase diet, activity, DC IV and SCDs.
[2019-10-19] MEDS: Prenatal Multivitamin with Calcium/Folic Acid/Iron Tab PO SCH (09:48)
[2019-10-19] MEDS: Simethicone 80 MG Tab.Chew PO SCH ×4 (09:48→21:11)
[2019-10-19] MEDS: Sertraline 50 MG Tab PO SCH (09:49)
[2019-10-19] MEDS: Acetaminophen/oxyCODONE 325-5 MG Tab PO PRN ×2 (14:43→21:12)
[2019-10-19] MEDS: Docusate Sodium 100 MG Cap PO PRN (21:12)
[2019-10-19] MEDS ORDERED: Zolpidem 10 MG Tab PO PRN (21:19)
[2019-10-20] MEDS: Ibuprofen 800 MG Tab PO SCH ×2 (03:08→10:06)
--- NOTE | 2019-10-20 06:34 | PCM.DCSUM1 ---
Discharge Summary - Hospital Course Free Text/Narrative:: Arina is a 39-year-old 8 now para 3053 white female who was admitted on at 22-4/7 weeks gestational age with a nonviable . Because of her history of 3 sections including the last section with separation of uterine sc decision was made to perform hysterotomy for delivery of the baby She underwent hysterotomy on 10/18/2019 with delivery of a osborn, nonviable, male Apgars of 0/0, weight of 441 g (15.6 ounces was delivered at 1529 hrs. on 10/18/2019. No cord or placental abnormalities were noted. Placenta was sent for evaluation. Etiology of the demise not identified. Postoperatively pain was controlled with Duramorph and ibuprofen initially followed by Percocet and ibuprofen. She had reasonable pain relief. She is made good bowel, bladder and avatar recovery. Incision appears to be healing well and vital signs of been stable throughout the postoperative course.She is doing reasonably well in her grieving for the loss of this baby. She has had a public health social worker consult. She was started on sertraline 50 g by mouth daily. She had Ambien to assist in her sleeping on the last night in the hospital. Her vital signs stable. Patient is discharged home on 10/20/2019. She is scheduled to follow-up with Dr. Ford her primary care licensing specialist within the next few days. Diagnosis: Stroke: No - Discharge Data Discharge Date: 10/20/19 Discharge Disposition: Home, Self-Care 01 Condition: Good - Referral to Home Health Primary Care Physician: Jayson Ford MD - Patient Summary/Data Operative Procedure(s) Performed: Repeat resection (hysterotomy) for a nonviable baby. Consults: Consultations 10/19/19 07:59 Consult to Case Management/[employer] Operator [CONS] Routine - Patient Instructions Diet: Regular Diet as Tolerated Activity: As Tolerated (No intercourse or tampons until seen back. No lifting greater than 15 pounds or driving a car 1 week.) Driving: Do Not Drive Showering/Bathing: May Shower Wound/Incision Care: Keep Operative Site/Wound Site Clean and Dry Notify Provider of: Fever, Increased Pain, Swelling and Redness, Nausea and/or Vomiting - Discharge Plan Home Medications: Home Meds Iron,Carb/Vit C/Vit B12/Folic [Iron 100 Plus Tablet] 1 each PO DAILY 10/18/19 [ History] Pnv No.95/Ferrous Fum/Folic AC [ Tablet] 1 each PO DAILY 10/18/19 [ History] Acetaminophen/oxyCODONE [Percocet 325-5 MG] 2 tab PO Q4H PRN tablet 10/20/19 [ Rx] Ibuprofen [Motrin] 800 mg PO Q8H tablet 10/20/19 [Rx] Sertraline [Zoloft] 50 mg PO DAILY tablet 10/20/19 [Rx] Referrals: Jayson Ford MD [Primary Care Provider] - (Patient is to return to clinic this week with Dr. Ford for follow-up.) - Discharge Summary/Plan Comment DC Time >30 min.: No Discharge Summary/Plan Comment: Discharge instructions: 1. Discharge home 2. Diet, activity and follow-up discussed with patient. 3. Precautions given concern increased pain, bleeding, temperature, signs/ symptoms of DVT/PE. 4. Medications per home medication was printed, discussed with and given to the patient. 5. Return to clinic-Dr. Ford[facility] within 5-7 days Diagnosis: 22-4/7 week intrauterine demise with delivery by hysterotomy. Condition: Good - Patient Data Vitals - Most Recent: Last Vital Signs Temp 37.1 C 10/20/19 03:12 Pulse 72 10/20/19 03:12 Resp 16 10/20/19 03:12 BP 132/80 10/20/19 03:12 Pulse Ox 98 10/20/19 03:12 Weight - Most Recent: 114.305 kg I&O - Last 24 hours: Intake & Output 10/19/19 10/19/19 10/20/19 14:59 22:59 06:59 Intake Total 120 Output Total 1000 Balance 120 -1000 Med Orders - Current: Current Medications Diphenhydramine HCl (Benadryl) 25 mg IVPUSH Q6H PRN PRN Reason: Itching or Nausea Last Admin: 10/18/19 19:54 Dose: 25 mg Docusate Sodium (Colace) 100 mg PO Q12H PRN PRN Reason: Constipation Last Admin: 10/19/19 21:12 Dose: 100 mg Ephedrine Sulfate (Ephedrine Sulfate) 5 mg IVPUSH SEECOMMENT PRN PRN Reason: Other Ibuprofen (Motrin) [address] [facility] Last Admin: 10/20/19 03:08 Dose: 800 mg Naloxone HCl (Narcan) 0.1 mg IVPUSH SEECOMMENT PRN PRN Reason: Respiratory Depression Ondansetron HCl (Zofran) 4 mg IV Q4H PRN PRN Reason: Nausea/Vomiting Oxycodone/Acetaminophen (Percocet 325-5 Mg) 1 tab PO Q4H PRN PRN Reason: Pain (moderate 4-6) Last Admin: 10/19/19 21:12 Dose: 1 tab Oxycodone/Acetaminophen (Percocet 325-5 Mg) 2 tab PO Q4H PRN PRN Reason: Pain (severe 7-10) Last Admin: 10/19/19 14:43 Dose: 2 tab Prenat Multivit/[place]/Iron/Folic Ac ( Plus Iron) [address] [facility] Last Admin: 10/19/19 09:48 Dose: 1 each Sertraline HCl (Zoloft) [address] [facility] Last Admin: 10/19/19 09:49 Dose: 50 mg Simethicone (Simethicone) [address] [facility] Last Admin: 10/19/19 21:11 Dose: 160 mg Zolpidem Tartrate (Ambien) 10 mg PO BEDTIME PRN PRN Reason: Insomnia Last Admin: 10/19/19 22:36 Dose: 10 mg Discontinued Medications Bupivacaine HCl (Marcaine 0.5%) Confirm Administered Dose 30 ml .ROUTE .STK-MED ONE Stop: 10/18/19 14:33 Last Admin: 10/18/19 15:24 Dose: 20 ml Cefazolin Sodium (Ancef) Confirm Administered Dose 2 gm .ROUTE .STK-MED ONE Stop: 10/18/19 14:26 Citric Acid/Sodium Citrate (Bicitra Solution) 30 ml PO ONETIME ONE Stop: 10/18/19 13:36 Last Admin: 10/18/19 14:32 Dose: 30 ml Diphenhydramine HCl (Benadryl) 25 mg IVPUSH Q6H PRN PRN Reason: Pruritis Fentanyl (Sublimaze) 50 mcg IVPUSH Q5M PRN PRN Reason: Pain Cefazolin Sodium/Dextrose 2 gm (/ Premix) 50 mls @ 100 mls/hr IV ONETIME ONE Stop: 10/18/19 14:04 Last Admin: 10/19/19 19:36 Dose: Not Given Lactated Ringer's (Ringers, Lactated) 1,000 mls @ 125 mls/hr IV ASDIRECTED [facility] Last Admin: 10/18/19 14:20 Dose: 125 mls/hr Oxytocin/Lactated Ringer's (Pitocin In Lr 10 Units/1,000 Ml) 10 unit in 1,000 mls @ 100 mls/hr IV ASDIRECTED [facility] Lactated Ringer's (Ringers, Lactated) Confirm Administered Dose 2,000 mls @ as directed .ROUTE .STK-MED ONE Stop: 10/18/19 14:26 Dextrose/Lactated Ringer's (Dextrose 5%-Lactated Ringers) 1,000 mls @ 125 mls/ hr IV ASDIRECTED [facility] Stop: 10/19/19 00:59 Last Admin: 10/18/19 20:24 Dose: 125 mls/hr Ibuprofen (Motrin) [address] [facility] Last Admin: 10/18/19 18:35 Dose: 800 mg Ketorolac Tromethamine (Toradol) Confirm Administered Dose 30 mg .ROUTE .STK- MED ONE Stop: 10/18/19 14:26 Meperidine HCl (Meperidine) 12.5 mg IVPUSH ONETIME ONE Stop: 10/18/19 16:30 Last Admin: 10/18/19 16:48 Dose: 12.5 mg Metoclopramide HCl (Reglan) 10 mg IVPUSH ONETIME ONE Stop: 10/18/19 13:36 Last Admin: 10/18/19 14:33 Dose: 10 mg Morphine Sulfate (Duramorph Pf) Confirm Administered Dose 1 mg .ROUTE .STK-MED ONE Stop: 10/18/19 14:26 Ondansetron HCl (Zofran) Confirm Administered Dose 4 mg .ROUTE .STK-MED ONE Stop: 10/18/19 14:26 Ondansetron HCl (Zofran) 4 mg IVPUSH ONETIME PRN PRN Reason: Nausea/Vomiting Oxytocin (Pitocin) Confirm Administered Dose 20 unit .ROUTE .STK-MED ONE Stop: 10/18/19 14:26 Sodium Chloride (Saline Flush) 10 ml FLUSH ASDIRECTED PRN PRN Reason: Keep Vein Open
[2019-10-20] MEDS: Prenatal Multivitamin with Calcium/Folic Acid/Iron Tab PO SCH (10:05)
[2019-10-20] MEDS: Sertraline 50 MG Tab PO SCH (10:05)
[2019-10-20] MEDS: Simethicone 80 MG Tab.Chew PO SCH (10:06)
[2019-10-20] MEDS: Docusate Sodium 100 MG Cap PO PRN (10:10)
[2019-10-20] MEDS: Acetaminophen/oxyCODONE 325-5 MG Tab PO PRN (10:10)
[2019-10-20 11:13] VITALS: BP 116/79; PULSE 90
== END 2019-10-20 10:35 | disposition home or self-care (01) | DRG 788 ==
LOC: JD.OB 13:40
PROVIDERS: ADMIT Obstetrics & Gynecology; ATTEND Obstetrics & Gynecology
PROC: 10D00Z1 Extraction of Products of Conception, Low, Open Approach (ICD-10-PCS; principal; 2019-10-18)
DX: O36.4XX0 Maternal care for intrauterine death, not applicable or unspecified (principal); O99.212 Obesity complicating pregnancy, second trimester; E66.9 Obesity, unspecified; Z3A.22 22 weeks gestation of pregnancy; Z37.1 Single stillbirth; Z91.040 Latex allergy status
CPT/HCPCS: 01961; 36415; 85025; 94762; A9270-GY; J0690; J1200; J1885; J2175; J2274; J2405; J2590; J2765; J3490; J7120; J7121

== ENCOUNTER 2020-10-20 09:22 | Inpatient (IN) | payer MEDICAID ==
[2020-10-20] MEDS ORDERED: Sodium Chloride 0.9% 10 ML Syringe FLUSH PRN (09:36)
[2020-10-20] MEDS ORDERED: Metoclopramide 10 MG/2 ML SDV IVPUSH ONE (09:36)
[2020-10-20] MEDS ORDERED: ceFAZolin 2 GM in Premix Bag 1 BAG IV ONE (09:36)
[2020-10-20] MEDS ORDERED: Citric Acid/Sodium Citrate Solution 30 ML Cup PO ONE (09:36)
[2020-10-20] MEDS ORDERED: Oxytocin/Lactated Ringers 20 UNIT/1,000 ML BAG IV SCH (09:45)
--- NOTE | 2020-10-20 09:57 | PCM.LDHP ---
L&D History of Present Illness - General Date of Service: 10/20/20 Admit Problem/Dx: Admission Diagnosis/Problem Admission Diagnosis/Problem 10/20/20 09:44 Arina is a 40-year-old 7 para 3-2-2-3 female presently at 37-6/7 weeks gestational age with an RUCHI of 11/04/2020 admitted for increasing pelvic pain in the area of her scar and a biophysical profile score of 6/10. Recommendation is for repeat section at this time. 10/20/20 09:45 Source of Information: Patient History Limitations: Reports: No Limitations - History of Present Illness Introduction:: Arina is a 40-year-old 7 para 3-2-2-3 female presently at 37-6/7 weeks gestational age with an RUCHI of 11/04/2020 admitted for increasing pelvic pain in the area of her scar and a biophysical profile score of 6/10. Recommendation is for repeat section at this time. Procedure, risk, benefits, limitations and follow-up along with alternatives of care discussed in detail with patient. She appears understand, wishes to proceed and signed a consent. VP OF TECHNOLOGY history: Patient is a 7 para 3-1-3-3 female. Patient had menarche at approximately age 14. Cycles somewhat irregular at every 30 to 40 days. Last menstrual period started on 01/29/2020 and is used as dating parameter as ultrasound done on 04/08/2020 at 10-0/7 weeks was exactly consistent with her LMP dating. Follow-up ultrasounds were also consistent with her LMP dating. Patient denies any abnormal Pap smears. She denies any STIs. Her obstetric history includes the followin. Male infant born 04/27/2011 at 39-1/7 weeks gestational agelength of labor 2 hours - 7 pounds 7 ouncesprimary section for nonreassuring heart tonesepidural useddone in the [facility]. 2. Male born 12/06/2012 at 41-2/7 weeks gestational age1 hour of labor8 pounds 0 ounces-repeat sectionspinal [facility]iad[facility] 3. Miscarriage06/03/2012 at 6 weeks gestational age. 4. Miscarriage-10 2013-8 weeks gestational age 5. Male born 11/20/2017 at 40-2/7 weeks gestational age8 pounds 15 ou ncesrepeat sectiongeneral anesthesiaC [place] 6. Flqevycwnou88-3/7 weeks gestational age1103/07/2019-patient underwent D&C for treatment 7. Male infantfetal demise10/18/2019 at 22-5/7 weeks gestational ageC [place]-repeat section. course: Patient was seen early in the at 10 and 07 weeks. She is seen on a very regular basis. Her risk factors for the include history of section x4, history of gestational diabetes, depression affecting , history of loss with demise at 22+ weeks, history of miscarriage x3, obesity, asthmastable in . Patient's weight gain duri ng the course the was from 246 pounds to 255 pounds. Fundal height growth has been appropriate throughout the course. Gestational diabetes has been under good control with Levemir. labs: On first visit patient blood was all positive with a negative antibody screen. Hemoglobin is 11.4 g/dL. Platelets are 285,000. She is rubella immune. RPR is nonreactive. Urine culture was negative. Hepatitis B surface antigen and HIV assays were both negative. Chlamydia, gonorrhea, hepatitis C evaluations were negative. TSH done on 04/12/2020 was unremarkable at 1.048 milliunits/mL. Second trimester labs showed an elevated 1 hour GTT. Her 3-hour GTT showed a fasting blood sugar 108. 1 hour glucose was 198. 2- hour glucose was 120 and 3-hour glucose was 66. Follow-up CBC on 09/22/2020 showed hemoglobin 11.2 and platelets at 272,000. Her group B strep screen was negative. Patient has had her Tdap on 08/29/2020. She is rubella immune. Allergies: 1. Latex 2. Adhesive tape Medications: 1. Levemir subcu daily 2. Albuterol sulfate inhaler as needed 1 to 2 puffs every 4-6 hours as needed 3. Buprenorphine HCl 150 mg tabs extended release daily 4. vitamins daily 5. Magnesium caps daily 6. Calcium tabs daily 7. Iron 3 and 25 mg p.o. daily 8. Folic acid daily 9. Vitamin D 3 tabs daily Past medical history: 1. depression of the second child 2. Latex allergy 3. Miscarriage x3 4. demise x1 5. x4. Past surgical history: 1. x4. Family history: Mother is type 2 diabetes. Father and mother with history of hypertension. Mother and sister with history of thyroid dysfunction. No anesthesia, bleeding, blood clotting problems noted in the palate. Social history: Patient is . is Joaquín Ochoa. She is a [id number] mom. She lives in [place] with her family. She does not use any significant also alcohol, drugs or tobacco. Review of systems: Patient reports decreased activity at this time to no more than 5-6 times today and increased help with pain in the area of her uterine scar incision which she rates 6-7 on a scale of 10.. Skin: Negative Lungs: No infectious symptoms or shortness of breath Cardiovascular: No chest pain or exercise intolerance Breasts: No lumps, changes in size, pain, dimpling, discharge or axillary or supraclavicular concerns. changes noted. Patient plans to breast- feed. GI: Negative : Changes associated with . Musculoskeletal: Negative Neurological: Negative In general the patient is well-developed, well-nourished, pleasant female of stated age in no acute distress. On last evaluation clinic earlier today prior to admission shows blood pressure 134/84 weight is 255 with pregravid weight of 246. Height is 5 feet 8 inches. Prepregnancy body mass index is 36.5. Skin is warm dry without lesions. HEENT, neck and back within normal limits. Lungs are clear with good breath sounds in all lung cisneros. Cardiovascular exam shows regular and rhythm without murmurs. Abdomen is is gravid with fundal height of 38.5 cm. Baby in vertex presentation.. Genital exam was not performed today. Extremities and neurological exam are grossly within normal limits. Timing/Duration: Reports: hour(s): - Related Data Allergies/Adverse Reactions: Allergies Allergy/AdvReac Type Severity Reaction Status Date / Time latex Allergy Severe Burning Verified 03/06/19 23:38 tape Allergy Blisters Uncoded 03/06/19 23:50 Home Medications: Home Meds Pnv No.95/Ferrous Fum/Folic AC [ Tablet] 1 each PO DAILY 06/14/20 [History] Acetaminophen/oxyCODONE [Percocet 325-5 MG] 2 tab PO Q4H PRN tablet 10/20/19 [Rx] buPROPion [Wellbutrin SR] 150 mg PO DAILY 07/31/20 [History] Past Medical History - Past Health History Medical/Surgical History: Denies Medical/Surgical History HEENT History: Reports: None, Otitis Media Respiratory History: Reports: Asthma VP OF TECHNOLOGY History: Reports: Other OB/BYN History: demise at 22 weeks Psychiatric History: Reports: Depression, Other (See Below) Other Psychiatric History: cut herself a week ago, states has not done that in years, bandaid to right upper thigh, would not remove it while in room Endocrine/Metabolic History: Reports: Diabetes, Gestational, Obesity/BMI 30+ Other Hematologic History: not since childhood - Past Surgical History Female Surgical History: Reports: Section Social & Family History - Family History Family Medical History: No Pertinent Family History - Caffeine Use Caffeine Use: Reports: None - Living Situation & Occupation Living situation: Reports: , with Spouse, with Family (3 kids) Occupation: Unemployed H&P Review of Systems - Review of Systems: Review Of Systems: See Below L&D Exam - Exam Exam: See Below - Vital Signs Weight: 115.666 kg - Patient Data Result Diagrams: 10/20/20 10:08 - Problem List (1) 37 weeks gestation of SNOMED Code(s): 84626929 ICD Code: Z3A.37 - 37 WEEKS GESTATION OF Status: Acute Current Visit: Yes (2) Gestational diabetes SNOMED Code(s): 67859248 ICD Code: O24.419 - GESTATIONAL DIABETES MELLITUS IN , UNSP CONTROL Status: Acute Current Visit: Yes (3) Previous section complicating SNOMED Code(s): 109651703, 108901255 ICD Code: O34.219 - MATERNAL CARE FOR UNSP TYPE SCAR FROM PREVIOUS DEL Status: Acute Current Visit: Yes (4) Pelvic pain affecting in third trimester, antepartum SNOMED Code(s): 411004691, 668142527 ICD Code: O26.893 - OTH RELATED CONDITIONS, THIRD TRIMESTER; R10.2 - PELVIC AND PERINEAL PAIN Status: Acute Current Visit: Yes (5) Gestational diabetes mellitus (GDM) SNOMED Code(s): 86932262 ICD Code: O24.419 - GESTATIONAL DIABETES MELLITUS IN , UNSP CONTROL Status: Acute Current Visit: No Qualifiers: Gestational diabetes mellitus control: diet-controlled Trimester: third trimester Qualified Code(s): O24.410 - Gestational diabetes mellitus in , diet controlled (6) Asthma affecting in third trimester SNOMED Code(s): 07712915452018, 75416118634993 ICD Code: O99.513 - DISEASES OF THE RESP SYS COMP , THIRD TRIMESTER; J45.909 - UNSPECIFIED ASTHMA, UNCOMPLICATED Status: Acute Current Visit: Yes (7) Obesity affecting in third trimester SNOMED Code(s): 608729372630, 743203432982 ICD Code: O99.213 - OBESITY COMPLICATING , THIRD TRIMESTER Status: Acute Current Visit: Yes (8) History of depression, currently in third trimester SNOMED Code(s): 33407125 ICD Code: O99.891 - OTH DISEASES AND CONDITIONS COMPLICATING ; Z86.59 - PERSONAL HISTORY OF OTHER MENTAL AND BEHAVIORAL DISORDERS Status: Acute Current Visit: Yes (9) Previous recurrent miscarriages affecting , antepartum SNOMED Code(s): 937091689 ICD Code: O26.20 - PREG CARE FOR PATIENT W RECURRENT PREG LOSS, UNSP TRIMESTER Status: Acute Current Visit: Yes Problem List Initiated/Reviewed/Updated: Yes Assessment/Plan Comment:: 1. 40-year-old 7 para 3-1-3-3 female at 37-6/7 weeks gestational age with an RUCHI of 11/04/2020 admitted for increasing pelvic pain in the area of previous section scar. 2. Her risk factors for the include history of section x4, history of gestational diabetes-on insulin with good control, depression affecting , history of loss with demise at 22+ weeks, history of miscarriage x3, obesity, asthmastable in . 3. BPP today 10/13 with generally reassuring heart tones at present 4. Patient plans to breast-feed 5. Previous x4 with desire for repeat section 6. Rubella immune 7. Patient has received Tdap during Plan: 1. Repeat low segment transverse section through Pfannenstiel skin incision under spinal block. Procedure, risk, benefits, alternatives of care and follow-up discussed with patient. She appears understand, wishes to proceed and signed a consent. 2. DVT prophylaxis with SCDs 3. Infection prophylaxis with Ancef 2 g IV preop 4. Support breast-feeding decision 5. Preoperative laboratory testing per routine.
[2020-10-20] MEDS: Lactated Ringers 1,000 ML IV SCH ×2 (09:59→12:09)
[2020-10-20] MEDS ORDERED: Ketorolac 30 MG/ML SDV ONE (10:18)
[2020-10-20] MEDS ORDERED: Ondansetron 4 MG/2 ML SDV ONE (10:18)
[2020-10-20] MEDS ORDERED: Morphine PF 10 MG/10 ML SDV ONE (10:18)
[2020-10-20] MEDS ORDERED: Oxytocin 10 Units/1 ML SDV ONE (10:18)
[2020-10-20] MEDS ORDERED: Lactated Ringers 2,000 ML ONE (10:18)
[2020-10-20] MEDS ORDERED: ceFAZolin 1 GM Vial ONE (10:18)
--- NOTE | 2020-10-20 11:04 | PCM.PREANE ---
Preanesthetic Assessment - Procedure Proposed Procedure: C section - Anesthesia/Transfusion/Family Hx Anesthesia History: Prior Anesthesia Without Reaction Family History of Anesthesia Reaction: No Transfusion History: No Prior Transfusion(s) Intubation History: Unknown - Review of Systems General: No Symptoms Pulmonary: No Symptoms Cardiovascular: No Symptoms Gastrointestinal: No Symptoms Neurological: No Symptoms Other: Reports: Diabetes (Gestational diabetes) - Physical Assessment NPO Status Date: 10/20/20 NPO Status Time: 06:40 Vital Signs: Last Vital Signs Temp 98.5 F 10/20/20 10:30 Pulse 81 10/20/20 10:30 Resp 18 10/20/20 10:30 BP 131/81 10/20/20 10:30 Pulse Ox 98 10/20/20 09:44 Height: 1.73 m Weight: 115.666 kg ASA Class: 3 Mental Status: Alert & Oriented x3 Airway Class: Mallampati = 2 Dentition: Reports: Caries Thyro-Mental Finger Breadths: 2 Mouth Opening Finger Breadths: 2 ROM/Head Extension: Full Lungs: Clear to Auscultation, Normal Respiratory Effort Cardiovascular: Regular Rate, Regular Rhythm - Lab Values: Laboratory Last Values WBC 8.70 K/mm3 (3.98-10.04) 10/20/20 10:08 RBC 3.84 M/mm3 (3.98-5.22) L 10/20/20 10:08 Hgb 11.3 gm/dl (11.2-15.7) 10/20/20 10:08 Hct 35.2 % (34.1-44.9) 10/20/20 10:08 MCV 91.7 fl (79.4-94.8) 10/20/20 10:08 MCH 29.4 pg (25.6-32.2) 10/20/20 10:08 MCHC 32.1 g/dl (32.2-35.5) L 10/20/20 10:08 RDW Std Deviation 46.8 fL (36.4-46.3) H 10/20/20 10:08 Plt Count 275 K/mm3 (182-369) 10/20/20 10:08 MPV 10.0 fl (9.4-12.3) 10/20/20 10:08 Neut % (Auto) 78.0 % (34.0-71.1) H 10/20/20 10:08 Lymph % (Auto) 16.0 % (19.3-51.7) L 10/20/20 10:08 [place] % (Auto) 5.4 % (4.7-12.5) 10/20/20 10:08 Eos % (Auto) 0.3 (0.7-5.8) L 10/20/20 10:08 Baso % (Auto) 0.1 % (0.1-1.2) 10/20/20 10:08 Neut # (Auto) 6.78 K/mm3 (1.56-6.13) H 10/20/20 10:08 Lymph # (Auto) 1.39 K/mm3 (1.18-3.74) 10/20/20 10:08 [place] # (Auto) 0.47 K/mm3 (0.24-0.36) H 10/20/20 10:08 Eos # (Auto) 0.03 K/mm3 (0.04-0.36) L 10/20/20 10:08 Baso # (Auto) 0.01 K/mm3 (0.01-0.08) 10/20/20 10:08 SARS-CoV-2 RNA (APOLINAR) Negative (NEGATIVE) 10/20/20 09:31 Labs reviewed and okay to proceed - Allergies Allergies/Adverse Reactions: Allergies Allergy/AdvReac Type Severity Reaction Status Date / Time latex Allergy Severe Burning Verified 03/06/19 23:38 tape Allergy Blisters Uncoded 03/06/19 23:50 - Blood Blood Available: Yes Product(s) Available: PRBC - Acknowledgements Anesthesia Type Planned: Spinal Pt an Appropriate Candidate for the Planned Anesthesia: Yes Alternatives and Risks of Anesthesia Discussed w Pt/Guardian: Yes Pt/Guardian Understands and Agrees with Anesthesia Plan: Yes PreAnesthesia Questionnaire - Past Health History Medical/Surgical History: Denies Medical/Surgical History HEENT History: Reports: None, Otitis Media Other HEENT History: wears contacts Other Cardiovascular History: palpitations during Respiratory History: Reports: Asthma Other Respiratory History: has not used inhaler for 3 years Gastrointestinal History: Reports: Chronic Constipation PULL OVER History: Reports: Other OB/BYN History: , had demise at 22 weeks in 2019 Psychiatric History: Reports: Depression, Suicidal Ideation, Other (See Below) Other Psychiatric History: suicide attempt at 27 years age, suicidal thoughts after 22 week demise, cut herself a week ago, states has not done that in years, bandaid to right upper thigh, would not remove it while in room Endocrine/Metabolic History: Reports: Diabetes, Gestational, Obesity/BMI 30+ Other Endocrine/Metabolic History: taking levemir 10u at HS Other Hematologic History: not since childhood - Past Surgical History HEENT Surgical History: Reports: Myringotomy w Tube(s), Oral Surgery Female Surgical History: Reports: Section - SUBSTANCE USE Tobacco Use Status *Q: Former Tobacco User Tobacco Use Within Last Twelve Months: Cigarettes Second Hand Smoke Exposure: No Recreational Drug Use History: No - HOME MEDS Home Medications: Home Meds Pnv No.95/Ferrous Fum/Folic AC [ Tablet] 1 each PO DAILY 10/18/19 [History] Acetaminophen/oxyCODONE [Percocet 325-5 MG] 2 tab PO Q4H PRN tablet 10/20/19 [Rx] buPROPion [Wellbutrin SR] 150 mg PO DAILY 07/31/20 [History] - CURRENT (IN HOUSE) MEDS Current Meds: Current Medications Oxytocin/Lactated Ringer's (Pitocin In Lr 20 Units/1,000 Ml) 20 unit in 1,000 mls @ 500 mls/hr IV ASDIRECTED [facility] Lactated Ringer's (Ringers, Lactated) 1,000 mls @ 125 mls/hr IV ASDIRECTED [facility] Last Admin: 10/20/20 09:59 Dose: 125 mls/hr Documented by: Sodium Chloride (Sodium Chloride 0.9% 10 Ml Syringe) 10 ml FLUSH ASDIRECTED PRN PRN Reason: Keep Vein Open Discontinued Medications Cefazolin Sodium (Cefazolin 1 Gm Vial) Confirm Administered Dose 2 gm .ROUTE .STK-MED ONE Stop: 10/20/20 10:19 Citric Acid/Sodium Citrate (Citric Acid/Sodium Citrate Solution 30 Ml Cup) 30 ml PO ONETIME ONE Stop: 10/20/20 09:37 Cefazolin Sodium/Dextrose 2 gm (/ Premix) 50 mls @ 100 mls/hr IV ONETIME ONE Stop: 10/20/20 10:05 Lactated Ringer's (Ringers, Lactated) Confirm Administered Dose 2,000 mls @ as directed .ROUTE .STK-MED ONE Stop: 10/20/20 10:19 Ketorolac Tromethamine (Ketorolac 30 Mg/Ml Sdv) Confirm Administered Dose 30 mg .ROUTE .STK-MED ONE Stop: 10/20/20 10:19 Metoclopramide HCl (Metoclopramide 10 Mg/2 Ml Sdv) 10 mg IVPUSH ONETIME ONE Stop: 10/20/20 09:37 Miscellaneous Medication (Phenylephrine Hcl In 0.9% Nacl 1 Mg/10 Ml Syringe) Confirm Administered Dose 1 mg .ROUTE .STK-MED ONE Stop: 10/20/20 10:19 Morphine Sulfate (Morphine Pf 10 Mg/10 Ml Sdv) Confirm Administered Dose 10 mg .ROUTE .STK-MED ONE Stop: 10/20/20 10:19 Ondansetron HCl (Ondansetron 4 Mg/2 Ml Sdv) Confirm Administered Dose 4 mg .ROUTE .STK-MED ONE Stop: 10/20/20 10:19 Oxytocin (Oxytocin 10 Units/1 Ml Sdv) Confirm Administered Dose 20 unit .ROUTE .STK-MED ONE Stop: 10/20/20 10:19
[2020-10-20] MEDS ORDERED: Bupivacaine 0.5% 30 ML SDV ONE (11:53)
[2020-10-20] MEDS ORDERED: ePHEDrine 50 MG/ML SDV ONE (12:54)
[2020-10-20] MEDS ORDERED: Ondansetron 4 MG/2 ML SDV IVPUSH PRN (13:23)
[2020-10-20] MEDS ORDERED: Meperidine 50 MG/ML Vial IVPUSH PRN (13:23)
[2020-10-20] MEDS ORDERED: diphenhydrAMINE 50 MG/ML SDV IVPUSH PRN ×2 (13:23→14:50)
[2020-10-20] MEDS ORDERED: fentaNYL 100 MCG/2 ML SDV IVPUSH PRN (13:23)
--- NOTE | 2020-10-20 13:23 | PCM.POSTAN ---
POST ANESTHESIA ASSESSMENT - MENTAL STATUS Mental Status: Alert, Oriented - VITAL SIGNS Vital Signs: Last Vital Signs Temp 98.5 F 10/20/20 10:30 Pulse 81 10/20/20 10:30 Resp 18 10/20/20 10:30 BP 131/81 10/20/20 10:30 Pulse Ox 98 10/20/20 09:44 Vital signs at 1314: 135/67 HR 73 Sat 100 RR 14 97.6 - RESPIRATORY Respiratory Status: Respiratory Rate WNL, Airway Patent, O2 Saturation Stable - CARDIOVASCULAR CV Status: Pulse Rate WNL, Blood Pressure Stable - GASTROINTESTINAL GI Status: No Symptoms - POST OP HYDRATION Hydration Status: Adequate & Stable
--- NOTE | 2020-10-20 13:29 | PCM.OPNOTE ---
- General Post-Op/Procedure Note Date of Surgery/Procedure: 10/20/20 Operative Procedure(s): Repeat lower uterine segment transverse section through Pfannenstiel skin incision Findings: Patient is noted to have moderately dense scar in the anterior abdominal wall from previous C-sections. The uterus is relatively free of scars. The myometrium overlying the previous uterine incision was essentially and only the amniotic sac membranes and the serosa were covering. This window covered the full length of the incision on the uterus. Uterus otherwise, fallopian tubes and bilateral ovaries were within normal limits. Omentum was adhered to the anterior left side of the patient's abdomen. This in full length of the previous scar. There were no windows and patient is not having any concerns related to this therefore it was maintained as it was. The amniotic fluid is clear. The baby weighed 6 pounds 13 ounces, was born at 1242 hrs. on 10/20/2020 and had Apgars of 9 and 9. Pre Op Diagnosis: 1. 37-6/7-week intrauterine ,. 2. Progressive lower abdominal/pelvic pain. 3. Biophysical profile score 46/10. 4. History of previous x4. 5. History of gestational diabeteswell controlled on insulin Post-Op Diagnosis: Same with delivery of a viable, osborn, female infant at 1242 hrs. on 10/20/2020. Apgars 9 and 9. Weight was 6 pounds 13 ounces. Anesthesia Technique: Spinal Other Anesthesia Type: Marcaine 0.5%local20 cc Primary Surgeon: Fco Sibley Secondary Surgeon: Donte Najera Anesthesia Provider: Bev Hutton Reason [employer] Was Necessary: Retraction, assistance, patient safety, quality of care. Fluid Replacement, Intraop: 1,400 Output, Urine Amount: 50 EBL in mLs: 700 Drain/Tube Comments:: Indwelling bladder catheter Complications: None Condition: Good Free Text/Narrative:: Surgery duration: 30 minutes Surgery duration: Procedure: The patient is appropriately consented. Patient was transferred to the room and placed in a sitting position. Spinal anesthesia was administered. After confirmation of adequate anesthesia patient was placed in a supine position with a wedge under her right side to facilitate left lateral positioning. The patient was prepped and draped in usual fashion after nonlatex Dunn catheter was already placed . The anesthetic was checked and found to be adequate. 20 mL of Marcaine 0.5% was injected locally in the Pfannenstiel incision site. The Pfannenstiel skin incision was then made and carried down through skin, subcutaneous and fascial layers. Moderate scarring was noted in the anterior abdominal wall secondary to previous surgery the fascia was then undermined superiorly and inferiorly to allow for adequate operating room. Care was taken to avoid a bladder because of previous surgery history. The recti muscles were midline and preperitoneal fat was bluntly dissected. Peritoneal cavity was entered longitudinally. The vesicouterine peritoneum was then incised transversely and bladder flap was developed. Myometrium was found to be at the site of the old uterine scar. Only tissue remaining was serosa, amniotic sac. This was was incised transversely and the incision was extended bilaterally in a blunt fashion. The amniotic sac was then ruptured resu lting in clear amniotic fluid. A hand is placed in the low uterine segment and the baby's head was brought forth through the incision. The baby was completely delivered using fundal pressure in a routine fashion. The nose and mouth were bulb suctioned. Baby's cord was clamped x2 cut and baby was handed off to attending hyperbaric welder diver Dr Dobbs. Placenta was expressed after cord blood was obtained. Uterus was then exteriorized to allow for easier closure. The cervix was assessed and found to be dilated adequately to allow egress of blood. The uterus was closed in 2 layers. The first layer a running locked suture of 0 Monocryl, the second layer a running locked vertical mattress suture of 0 Monocryl. [id number] suture was placed at mid incision to control 1 bleeder. Hemostasis confirmed at this time. Sponge instrument needle counts are correct. The uterus was returned to the abdominal cavity and lateral gutters were cleared of blood. Once again sponge needle counts are correct. The anterior abdominal wall was closed with a #1 PDS suture from angle to angle. The subcutaneous area was found to be free of any bleeders. interrupted sutures of 3-0 Monocryl were used to reapproximate the subcutaneous layer.Skin was closed with a running subcuticular stitch of 3-0 Monocryl in a vertical mattress suture fashion using a Domingo needle. Prineo mesh/glue was then applied to further approximate the incision. It should be noted that patient received 2 g of Ancef preoperatively for infection prophylaxis and had Pitocin infused after delivery of the placenta to facilitate uterine contraction. She also had sequential compression stockings in place for DVT prophylaxis. Patient was discharged from the operating room in satisfactory condition.
[2020-10-20] MEDS ORDERED: Dextrose 5%-Lactated Ringers 1,000 ML IV SCH (14:50)
[2020-10-20] MEDS ORDERED: Ondansetron 4 MG/2 ML SDV IV PRN (14:50)
[2020-10-20] MEDS ORDERED: ePHEDrine 50 MG/ML SDV IVPUSH PRN (14:50)
[2020-10-20] MEDS ORDERED: Naloxone 0.4 MG/ML SDV IVPUSH PRN (14:50)
[2020-10-20] MEDS: Acetaminophen/oxyCODONE 325-5 MG Tab PO PRN ×2 (15:50→20:31)
[2020-10-20] MEDS: Docusate Sodium 100 MG Cap PO PRN (15:50)
[2020-10-20] MEDS: Ibuprofen 800 MG Tab PO SCH (16:48)
[2020-10-20] MEDS: Simethicone 80 MG Tab.Chew PO PRN (21:32)
[2020-10-21] MEDS: Ibuprofen 800 MG Tab PO SCH ×3 (01:53→17:09)
--- NOTE | 2020-10-21 07:30 | PCM48HPAN ---
Post Anesthesia Note - EVALUATION WITHIN 48HRS OF ANESTHETIC Vital Signs in Normal Range: Yes Patient Participated in Evaluation: Yes Respiratory Function Stable: Yes Airway Patent: Yes Cardiovascular Function Stable: Yes Hydration Status Stable: Yes Pain Control Satisfactory: Yes Nausea and Vomiting Control Satisfactory: Yes Mental Status Recovered: Yes Vital Signs: Last Vital Signs Temp 97.3 F 10/21/20 03:03 Pulse 70 10/21/20 03:03 Resp 18 10/21/20 06:59 BP 99/66 10/21/20 03:03 Pulse Ox 98 10/21/20 06:59 - COMMENTS/OBSERVATIONS Free Text/Narrative:: reports got itchy with this csection also like last time.
[2020-10-21] MEDS: Docusate Sodium 100 MG Cap PO PRN (09:10)
[2020-10-21] MEDS: Simethicone 80 MG Tab.Chew PO PRN ×2 (09:10→14:18)
[2020-10-21] MEDS: buPROPion 150 MG Tab.SR PO SCH (09:10)
[2020-10-21] MEDS: Prenatal Multivitamin with Calcium/Folic Acid/Iron Tab PO SCH (09:10)
--- NOTE | 2020-10-21 11:10 | PCM.SN.2 ---
- Free Text/Narrative Note: note: Postoperative day #1 Patient is doing well in the period. Minimal lochia, voiding well, ambulated without problems. Nursing without concerns. Patient is afebrile, vital signs are stable Abdomen is flat, soft, uterus is below the umbilicus and is firm and nontender. Incision appears to be dry with Prineo mesh intact. No evidence of bleeding, seroma, hematoma or infection. Legs are nontender. CBC this a.m. shows hemoglobin 9.0. Patient is doing well ambulating. She has minimal lochia. Assessment: recovery going well. Plan: Routine care. Patient be discharged home within the next 24-48 hours.
[2020-10-21] MEDS: Acetaminophen/oxyCODONE 325-5 MG Tab PO PRN ×2 (12:48→18:53)
[2020-10-22] MEDS: Acetaminophen/oxyCODONE 325-5 MG Tab PO PRN ×3 (00:46→13:07)
[2020-10-22] MEDS: Ibuprofen 800 MG Tab PO SCH ×2 (00:47→10:04)
--- NOTE | 2020-10-22 08:03 | PCM.DCSUM1 ---
Discharge Summary - Discharge Data Discharge Date: 10/22/20 Discharge Disposition: Home, Self-Care 01 Condition: Good - Referral to Home Health Primary Care Physician: Fco Sibley MD - Patient Summary/Data Operative Procedure(s) Performed: Repeat lower uterine segment transverse section through Pfannenstiel skin incision Complications: None Consults: None Recommended Follow-up Testing/Procedures: Follow up in 2-[address] Sibley [facility] Course: 40-year-old woman presented at 37 5/7 wks with worsening pain along her incision. Was taken for surgery for this finding in addition to concerns of decreased FM/abnormal testing. At time of surgery large dehiscence / uterine window noted. See operative note. Remainder of surgery and delivery uncomplicated. patient did well and was discharged home on PPD#2 - Patient Instructions Diet: Regular Diet as Tolerated Activity: No Lifting Over 10 Pounds Activity, Other: Pelvic rest for 6 weeks Driving: Do Not Drive (While taking percocet ) Showering/Bathing: May Shower, No Tub Bathing/Swimming Wound/Incision Care: Keep Operative Site/Wound Site Clean and Dry Notify Provider of: Fever, Increased Pain, Swelling and Redness, Drainage, Nausea and/or Vomiting - Discharge Plan *PRESCRIPTION DRUG MONITORING PROGRAM REVIEWED*: No *COPY OF PRESCRIPTION DRUG MONITORING REPORT IN PATIENT ALEXIA: No Prescriptions/Med Rec: Acetaminophen/oxyCODONE [Percocet 325-5 MG] 1 - 2 tab PO Q4H PRN #25 tablet PRN Reason: Pain (Severe 7-10) Home Medications: Home Meds Pnv No.95/Ferrous Fum/Folic AC [ Tablet] 1 each PO DAILY 10/18/19 [History] Acetaminophen/oxyCODONE [Percocet 325-5 MG] 1 - 2 tab PO Q4H PRN #25 tablet 10/21/20 [Rx] Docusate Sodium [Colace] 100 mg PO Q12H PRN cap 10/21/20 [Rx] Ibuprofen [Motrin] 800 mg PO Q8H tablet 10/21/20 [Rx] buPROPion [Wellbutrin SR] 150 mg PO DAILY tab.sr 10/21/20 [Rx] Referrals: Fco Sibley MD [Primary Care Provider] - (2-3 weeks for post op check ) - Discharge Summary/Plan Comment DC Time >30 min.: No - Patient Data Vitals - Most Recent: Last Vital Signs Temp 36.3 C 10/22/20 03:51 Pulse 65 10/22/20 03:51 Resp 14 10/22/20 03:51 BP 119/81 10/22/20 03:51 Pulse Ox 99 10/22/20 03:51 Weight - Most Recent: 115.666 kg I&O - Last 24 hours: Intake & Output 10/21/20 10/22/20 10/22/20 22:59 06:59 14:59 Intake Total 480 Balance 480 Med Orders - Current: Current Medications Bupropion HCl (Bupropion 150 Mg Tab.Sr) 150 mg PO DAILY [facility] Last Admin: 10/21/20 09:10 Dose: 150 mg Documented by: Diphenhydramine HCl (Diphenhydramine 50 Mg/Ml Sdv) 25 mg IVPUSH Q6H PRN PRN Reason: Itching or Nausea Last Admin: 10/20/20 15:51 Dose: 25 mg Documented by: Docusate Sodium (Docusate Sodium 100 Mg Cap) 100 mg PO Q12H PRN PRN Reason: Constipation Last Admin: 10/21/20 09:10 Dose: 100 mg Documented by: Ephedrine Sulfate (Ephedrine 50 Mg/Ml Sdv) 5 mg IVPUSH SEECOMMENT PRN PRN Reason: Other Ibuprofen (Ibuprofen 800 Mg Tab) 800 mg PO Q8H [facility] Last Admin: 10/22/20 00:47 Dose: 800 mg Documented by: Naloxone HCl (Naloxone 0.4 Mg/Ml Sdv) 0.1 mg IVPUSH SEECOMMENT PRN PRN Reason: Respiratory Depression Ondansetron HCl (Ondansetron 4 Mg/2 Ml Sdv) 4 mg IV Q4H PRN PRN Reason: Nausea/Vomiting Oxycodone/Acetaminophen (Acetaminophen/Oxycodone 325-5 Mg Tab) 2 tab PO Q4H PRN PRN Reason: Pain (severe 7-10) Last Admin: 10/21/20 18:53 Dose: 2 tab Documented by: Oxycodone/Acetaminophen (Acetaminophen/Oxycodone 325-5 Mg Tab) 1 tab PO Q4H PRN PRN Reason: Pain (moderate 4-6) Last Admin: 10/22/20 00:46 Dose: 1 tab Documented by: Prenat Multivit/[place]/Iron/Folic Ac ( Multivitamin With Calcium/Folic Acid/Iron Tab) 1 each PO DAILY [facility] Last Admin: 10/21/20 09:10 Dose: 1 each Documented by: Simethicone (Simethicone 80 Mg Tab.Chew) 80 mg PO Q6H PRN PRN Reason: Gas Last Admin: 10/21/20 14:18 Dose: 80 mg Documented by: Discontinued Medications Bupivacaine HCl (Bupivacaine 0.5% 30 Ml Sdv) Confirm Administered Dose 30 ml .ROUTE .STK-MED ONE Stop: 10/20/20 11:54 Last Admin: 10/20/20 12:37 Dose: 20 ml Documented by: Cefazolin Sodium (Cefazolin 1 Gm Vial) Confirm Administered Dose 2 gm .ROUTE .STK-MED ONE Stop: 10/20/20 10:19 Citric Acid/Sodium Citrate (Citric Acid/Sodium Citrate Solution 30 Ml Cup) 30 ml PO ONETIME ONE Stop: 10/20/20 09:37 Last Admin: 10/20/20 11:23 Dose: 30 ml Documented by: Diphenhydramine HCl (Diphenhydramine 50 Mg/Ml Sdv) 25 mg IVPUSH Q6H PRN PRN Reason: Pruritis Ephedrine Sulfate (Ephedrine 50 Mg/Ml Sdv) Confirm Administered Dose 50 mg .ROUTE .STK-MED ONE Stop: 10/20/20 12:55 Fentanyl (Fentanyl 100 Mcg/2 Ml Sdv) 50 mcg IVPUSH Q5M PRN PRN Reason: Pain Last Admin: 10/20/20 14:11 Dose: 50 mcg Documented by: Cefazolin Sodium/Dextrose 2 gm (/ Premix) 50 mls @ 100 mls/hr IV ONETIME ONE Stop: 10/20/20 10:05 Last Admin: 10/21/20 07:38 Dose: Not Given Documented by: Oxytocin/Lactated Ringer's (Pitocin In Lr 20 Units/1,000 Ml) 20 unit in 1,000 mls @ 500 mls/hr IV ASDIRECTED [facility] Lactated Ringer's (Ringers, Lactated) 1,000 mls @ 125 mls/hr IV ASDIRECTED [facility] Last Admin: 10/20/20 12:09 Dose: 125 mls/hr Documented by: Lactated Ringer's (Ringers, Lactated) Confirm Administered Dose 2,000 mls @ as directed .ROUTE .STK-MED ONE Stop: 10/20/20 10:19 Dextrose/Lactated Ringer's (Dextrose 5%-Lactated Ringers) 1,000 mls @ 125 mls/hr IV ASDIRECTED [facility] Stop: 10/20/20 22:49 Last Admin: 10/20/20 19:44 Dose: 125 mls/hr Documented by: Ketorolac Tromethamine (Ketorolac 30 Mg/Ml Sdv) Confirm Administered Dose 30 mg .ROUTE .STFatsoma-MED ONE Stop: 10/20/20 10:19 Meperidine HCl (Meperidine 50 Mg/Ml Vial) 25 mg IVPUSH ONETIME PRN PRN Reason: Shivering Metoclopramide HCl (Metoclopramide 10 Mg/2 Ml Sdv) 10 mg IVPUSH ONETIME ONE Stop: 10/20/20 09:37 Last Admin: 10/20/20 11:23 Dose: 10 mg Documented by: Miscellaneous Medication (Phenylephrine Hcl In 0.9% Nacl 1 Mg/10 Ml Syringe) Confirm Administered Dose 1 mg .ROUTE .STK-MED ONE Stop: 10/20/20 10:19 Morphine Sulfate (Morphine Pf 10 Mg/10 Ml Sdv) Confirm Administered Dose 10 mg .ROUTE .STK-MED ONE Stop: 10/20/20 10:19 Ondansetron HCl (Ondansetron 4 Mg/2 Ml Sdv) Confirm Administered Dose 4 mg .ROUTE .STFatsoma-MED ONE Stop: 10/20/20 10:19 Ondansetron HCl (Ondansetron 4 Mg/2 Ml Sdv) 4 mg IVPUSH ONETIME PRN PRN Reason: Nausea/Vomiting Oxytocin (Oxytocin 10 Units/1 Ml Sdv) Confirm Administered Dose 20 unit .ROUTE .STFatsoma-MED ONE Stop: 10/20/20 10:19 Sodium Chloride (Sodium Chloride 0.9% 10 Ml Syringe) 10 ml FLUSH ASDIRECTED PRN PRN Reason: Keep Vein Open
--- NOTE | 2020-10-22 08:03 | PCM.PNPP ---
- General Info Date of Service: 10/22/20 Functional Status: Reports: Pain Controlled, Tolerating Diet, Ambulating, Urinating - Review of Systems General: Reports: No Symptoms Pulmonary: Reports: No Symptoms Cardiovascular: Reports: No Symptoms Gastrointestinal: Reports: Abdominal Pain (managed with medications ) Genitourinary: Reports: No Symptoms Musculoskeletal: Reports: No Symptoms Neurological: Reports: No Symptoms - Patient Data Vital Signs - Most Recent: Last Vital Signs Temp 36.3 C 10/22/20 03:51 Pulse 65 10/22/20 03:51 Resp 14 10/22/20 03:51 BP 119/81 10/22/20 03:51 Pulse Ox 99 10/22/20 03:51 Weight - Most Recent: 115.666 kg I&O - Last 24 Hours: Intake & Output 10/21/20 10/22/20 10/22/20 22:59 06:59 14:59 Intake Total 480 Balance 480 Med Orders - Current: Current Medications Bupropion HCl (Bupropion 150 Mg Tab.Sr) 150 mg PO DAILY [facility] Last Admin: 10/21/20 09:10 Dose: 150 mg Documented by: Diphenhydramine HCl (Diphenhydramine 50 Mg/Ml Sdv) 25 mg IVPUSH Q6H PRN PRN Reason: Itching or Nausea Last Admin: 10/20/20 15:51 Dose: 25 mg Documented by: Docusate Sodium (Docusate Sodium 100 Mg Cap) 100 mg PO Q12H PRN PRN Reason: Constipation Last Admin: 10/21/20 09:10 Dose: 100 mg Documented by: Ephedrine Sulfate (Ephedrine 50 Mg/Ml Sdv) 5 mg IVPUSH SEECOMMENT PRN PRN Reason: Other Ibuprofen (Ibuprofen 800 Mg Tab) 800 mg PO Q8H [facility] Last Admin: 10/22/20 00:47 Dose: 800 mg Documented by: Naloxone HCl (Naloxone 0.4 Mg/Ml Sdv) 0.1 mg IVPUSH SEECOMMENT PRN PRN Reason: Respiratory Depression Ondansetron HCl (Ondansetron 4 Mg/2 Ml Sdv) 4 mg IV Q4H PRN PRN Reason: Nausea/Vomiting Oxycodone/Acetaminophen (Acetaminophen/Oxycodone 325-5 Mg Tab) 2 tab PO Q4H PRN PRN Reason: Pain (severe 7-10) Last Admin: 10/21/20 18:53 Dose: 2 tab Documented by: Oxycodone/Acetaminophen (Acetaminophen/Oxycodone 325-5 Mg Tab) 1 tab PO Q4H PRN PRN Reason: Pain (moderate 4-6) Last Admin: 10/22/20 00:46 Dose: 1 tab Documented by: Prenat Multivit/[place]/Iron/Folic Ac ( Multivitamin With Calcium/Folic Acid/Iron Tab) 1 each PO DAILY [facility] Last Admin: 10/21/20 09:10 Dose: 1 each Documented by: Simethicone (Simethicone 80 Mg Tab.Chew) 80 mg PO Q6H PRN PRN Reason: Gas Last Admin: 10/21/20 14:18 Dose: 80 mg Documented by: Discontinued Medications Bupivacaine HCl (Bupivacaine 0.5% 30 Ml Sdv) Confirm Administered Dose 30 ml .ROUTE .STK-MED ONE Stop: 10/20/20 11:54 Last Admin: 10/20/20 12:37 Dose: 20 ml Documented by: Cefazolin Sodium (Cefazolin 1 Gm Vial) Confirm Administered Dose 2 gm .ROUTE .STK-MED ONE Stop: 10/20/20 10:19 Citric Acid/Sodium Citrate (Citric Acid/Sodium Citrate Solution 30 Ml Cup) 30 ml PO ONETIME ONE Stop: 10/20/20 09:37 Last Admin: 10/20/20 11:23 Dose: 30 ml Documented by: Diphenhydramine HCl (Diphenhydramine 50 Mg/Ml Sdv) 25 mg IVPUSH Q6H PRN PRN Reason: Pruritis Ephedrine Sulfate (Ephedrine 50 Mg/Ml Sdv) Confirm Administered Dose 50 mg .ROUTE .STK-MED ONE Stop: 10/20/20 12:55 Fentanyl (Fentanyl 100 Mcg/2 Ml Sdv) 50 mcg IVPUSH Q5M PRN PRN Reason: Pain Last Admin: 10/20/20 14:11 Dose: 50 mcg Documented by: Cefazolin Sodium/Dextrose 2 gm (/ Premix) 50 mls @ 100 mls/hr IV ONETIME ONE Stop: 10/20/20 10:05 Last Admin: 10/21/20 07:38 Dose: Not Given Documented by: Oxytocin/Lactated Ringer's (Pitocin In Lr 20 Units/1,000 Ml) 20 unit in 1,000 mls @ 500 mls/hr IV ASDIRECTED [facility] Lactated Ringer's (Ringers, Lactated) 1,000 mls @ 125 mls/hr IV ASDIRECTED [facility] Last Admin: 10/20/20 12:09 Dose: 125 mls/hr Documented by: Lactated Ringer's (Ringers, Lactated) Confirm Administered Dose 2,000 mls @ as directed .ROUTE .STK-MED ONE Stop: 10/20/20 10:19 Dextrose/Lactated Ringer's (Dextrose 5%-Lactated Ringers) 1,000 mls @ 125 mls/hr IV ASDIRECTED [facility] Stop: 10/20/20 22:49 Last Admin: 10/20/20 19:44 Dose: 125 mls/hr Documented by: Ketorolac Tromethamine (Ketorolac 30 Mg/Ml Sdv) Confirm Administered Dose 30 mg .ROUTE .STK-MED ONE Stop: 10/20/20 10:19 Meperidine HCl (Meperidine 50 Mg/Ml Vial) 25 mg IVPUSH ONETIME PRN PRN Reason: Shivering Metoclopramide HCl (Metoclopramide 10 Mg/2 Ml Sdv) 10 mg IVPUSH ONETIME ONE Stop: 10/20/20 09:37 Last Admin: 10/20/20 11:23 Dose: 10 mg Documented by: Miscellaneous Medication (Phenylephrine Hcl In 0.9% Nacl 1 Mg/10 Ml Syringe) Confirm Administered Dose 1 mg .ROUTE .STK-MED ONE Stop: 10/20/20 10:19 Morphine Sulfate (Morphine Pf 10 Mg/10 Ml Sdv) Confirm Administered Dose 10 mg .ROUTE .STK-MED ONE Stop: 10/20/20 10:19 Ondansetron HCl (Ondansetron 4 Mg/2 Ml Sdv) Confirm Administered Dose 4 mg .ROU TE .STK-MED ONE Stop: 10/20/20 10:19 Ondansetron HCl (Ondansetron 4 Mg/2 Ml Sdv) 4 mg IVPUSH ONETIME PRN PRN Reason: Nausea/Vomiting Oxytocin (Oxytocin 10 Units/1 Ml Sdv) Confirm Administered Dose 20 unit .ROUTE .STK-MED ONE Stop: 10/20/20 10:19 Sodium Chloride (Sodium Chloride 0.9% 10 Ml Syringe) 10 ml FLUSH ASDIRECTED PRN PRN Reason: Keep Vein Open - Interaction Infant Disposition, : [place] in Room with Family Interaction: Holding Infant Feeding: Breastfed Infant; Nursed Well Support Person: - Recovery Exam Fundal Tone: Firm Fundal Level: 1 Fingerbreadths Below Umbilicus Fundal Placement: Midline Lochia Amount: Scant, Small Lochia Color: Rubra/Red Perineum Description: Intact, Minimal Bruising/Swelling Episiotomy/Laceration: None Bladder Status: Nonpalpable, Voiding Urinary Elimination: Voided - Exam General: Alert, Oriented, Cooperative Lungs: Clear to Auscultation, Normal Respiratory Effort Cardiovascular: Regular Rate, Regular Rhythm GI/Abdominal Exam: Soft, Tender (appropriate post op) Extremities: Normal Inspection Skin: Warm, Dry, Intact Wound/Incisions: Healing Well, No Drainage - Problem List & Annotations (1) 37 weeks gestation of SNOMED Code(s): 25502841 Code(s): Z3A.37 - 37 WEEKS GESTATION OF Status: Acute Current Visit: Yes (2) Abnormal test SNOMED Code(s): 364427676, 517124955 Code(s): O28.9 - UNSP ABNORMAL FINDINGS ON SCREENING OF MOTHER Status: Acute Current Visit: Yes (3) S/P repeat low transverse SNOMED Code(s): 267147024, 40736648, 568170491, 911487722, 634491296 Code(s): Z98.891 - HISTORY OF UTERINE SCAR FROM PREVIOUS SURGERY Status: Acute Current Visit: Yes - Problem List Review Problem List Initiated/Reviewed/Updated: Yes - Assessment Assessment:: POD#2 - Plan Plan:: Routine cares Breast feeding Discharge home today
[2020-10-22] MEDS: buPROPion 150 MG Tab.SR PO SCH (08:24)
[2020-10-22] MEDS: Prenatal Multivitamin with Calcium/Folic Acid/Iron Tab PO SCH (08:25)
[2020-10-22] MEDS: Simethicone 80 MG Tab.Chew PO PRN (08:26)
[2020-10-22] MEDS: Docusate Sodium 100 MG Cap PO PRN (08:26)
[2020-10-22 13:48] VITALS: BP 119/74; PULSE 79
== END 2020-10-22 13:15 | disposition home or self-care (01) | DRG 788 ==
LOC: JD.OB 09:22
PROVIDERS: ADMIT Obstetrics & Gynecology; ATTEND Obstetrics & Gynecology
PROC: 10D00Z1 Extraction of Products of Conception, Low, Open Approach (ICD-10-PCS; principal; 2020-10-20)
DX: O34.211 Maternal care for low transverse scar from previous cesarean delivery (principal); O26.893 Other specified pregnancy related conditions, third trimester; R10.2 Pelvic and perineal pain; O99.52 Diseases of the respiratory system complicating childbirth; J45.909 Unspecified asthma, uncomplicated; O99.214 Obesity complicating childbirth; E66.9 Obesity, unspecified; O99.62 Diseases of the digestive system complicating childbirth; K59.09 Other constipation; O24.424 Gestational diabetes mellitus in childbirth, insulin controlled; Z20.822 Contact with and (suspected) exposure to COVID-19; Z91.040 Latex allergy status; Z91.09 Other allergy status, other than to drugs and biological substances; Z87.891 Personal history of nicotine dependence
CPT/HCPCS: 01961; 36415; 59025; 85025; 86592; 86850; 86900; 86901; 94762; A9270-GY; J0690; J1200; J1885; J2270; J2370; J2405; J2590; J2765; J3010; J3490; J7120; J7121; U0002

== ENCOUNTER 2020-12-27 08:06 | Inpatient (IN) | payer MEDICAID ==
[~2020-12-27 08:06] MED LIST: Lactated Ringers 1,000 ML IV SCH; Lidocaine 1%/Sod Bicarbonate in NS 8.4% 1 ML Syringe IDERM PRN; Sodium Chloride 0.9% 10 ML Syringe FLUSH PRN
[2020-12-27] MEDS ORDERED: Midazolam 1 MG/ML 2 ML SDV ONE (08:14)
[2020-12-27] MEDS ORDERED: HYDROmorphone 0.5 MG/0.5 ML Syringe ONE ×3 (08:14→11:45)
[2020-12-27] MEDS ORDERED: fentaNYL 250 MCG/5 ML SDV ONE (08:14)
[2020-12-27] MEDS ORDERED: Rocuronium 50 MG/5 ML Vial ONE (08:14)
[2020-12-27] MEDS ORDERED: Propofol 200 MG/20 ML SDV ONE (08:14)
[2020-12-27] MEDS ORDERED: ceFAZolin 1 GM Vial ONE (08:14)
[2020-12-27] MEDS ORDERED: Ondansetron 4 MG/2 ML SDV ONE (08:14)
[2020-12-27] MEDS ORDERED: Ketamine 500 mg/10 ML MDV ONE (08:14)
[2020-12-27] MEDS ORDERED: Lidocaine 1% 4 ML ONE (08:15)
[2020-12-27] MEDS ORDERED: Lactated Ringers 1,000 ML ONE (08:15)
[2020-12-27] MEDS ORDERED: Ketorolac 30 MG/ML SDV ONE (08:15)
[2020-12-27] MEDS ORDERED: Dexamethasone 4 MG/ML 5 ML MDV ONE (08:15)
--- NOTE | 2020-12-27 08:19 | PCM.PREANE ---
Preanesthetic Assessment - Procedure Proposed Procedure: Total abdominal hysterectomy with bilateral salpingectomy - Anesthesia/Transfusion/Family Hx Anesthesia History: Prior Anesthesia Without Reaction Family History of Anesthesia Reaction: No Transfusion History: No Prior Transfusion(s) Intubation History: Unknown - Review of Systems General: No Symptoms Pulmonary: No Symptoms Cardiovascular: No Symptoms Gastrointestinal: No Symptoms Neurological: No Symptoms Other: Reports: Easy Bruising, Depression, Anxiety - Physical Assessment NPO Status Date: 12/26/20 NPO Status Time: 21:00 Vital Signs: BP 124/75 HR 80 RR 18 98% 98.0 Height: 1.73 m Weight: 110 kg ASA Class: 2 Mental Status: Alert & Oriented x3 Airway Class: Mallampati = 2 Dentition: Reports: [place](s), Broken Tooth/Teeth, Missing Tooth/Teeth (Very poor dentition), Caries Thyro-Mental Finger Breadths: 3 Mouth Opening Finger Breadths: 3 ROM/Head Extension: Full Lungs: Clear to Auscultation, Normal Respiratory Effort Cardiovascular: Regular Rate, Regular Rhythm, No Murmurs - Lab Values: Labs reviewed and okay to proceed - Allergies Allergies/Adverse Reactions: Allergies Allergy/AdvReac Type Severity Reaction Status Date / Time latex Allergy Severe Burning Verified 12/26/20 18:00 tape Allergy Blisters Uncoded 12/26/20 18:00 - Blood Blood Available: No Product(s) Available: None - Acknowledgements Anesthesia Type Planned: General Anesthesia Pt an Appropriate Candidate for the Planned Anesthesia: Yes Alternatives and Risks of Anesthesia Discussed w Pt/Guardian: Yes Pt/Guardian Understands and Agrees with Anesthesia Plan: Yes PreAnesthesia Questionnaire - Past Health History Medical/Surgical History: Denies Medical/Surgical History HEENT History: Reports: None, Hard of Hearing, Impaired Vision, Otitis Media Other HEENT History: wears contacts Cardiovascular History: Reports: Hypertension (Has been resolved, just a history of HTN) Other Cardiovascular History: palpitations during Respiratory History: Reports: Asthma Other Respiratory History: has not used inhaler for 3 years Gastrointestinal History: Reports: Chronic Constipation Genitourinary History: Reports: Other (See Below) Other Genitourinary History: urinary frequency, right breast mass 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: , Spontaneous (miscarriages x3 (6, 8, 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) Other OB/BYN History: , had demise at 22 weeks in 2019 completed for management, dysmenorrhea Musculoskeletal History: Reports: Arthritis Neurological History: Reports: Other (See Below) Other Neuro History: dizziness Psychiatric History: Reports: Anxiety, Depression, Suicidal Ideation, Other (See Below) Other Psychiatric History: suicide attempt at 27 years age, suicidal thoughts after 22 week demise, cut herself a week ago, states has not done that in years, bandaid to right upper thigh, would not remove it while in room Endocrine/Metabolic History: Reports: Diabetes, Gestational (Resolved), Obesity/BMI 30+ Hematologic History: Reports: None Immunologic History: Reports: None Oncologic (Cancer) History: Reports: None Dermatologic History: Reports: Other (See Below) Other Dermatologic History: Mass of right breast - Infectious Disease History Infectious Disease History: Reports: None - Past Surgical History Head Surgeries/Procedures: Reports: None HEENT Surgical History: Reports: Myringotomy w Tube(s), Oral Surgery Cardiovascular Surgical History: Reports: None Respiratory Surgical History: Reports: None GI Surgical History: Reports: None Female Surgical History: Reports: Section, D&C Other Female Surgeries/Procedures: C. Section x5 Male Surgical History: Reports: None Endocrine Surgical History: Reports: None Neurological Surgical History: Reports: None Oncologic Surgical History: Reports: None Dermatological Surgical History: Reports: None - SUBSTANCE USE Tobacco Use Status *Q: Never Tobacco User Second Hand Smoke Exposure: No Days Per Week of Alcohol Use: 0 Number of Drinks Per Day: 0 Total Drinks Per Week: 0 Recreational Drug Use History: No - HOME MEDS Home Medications: Home Meds Pnv No.95/Ferrous Fum/Folic AC [ Tablet] 1 each PO DAILY 10/18/19 [History] Albuterol Sulfate [Albuterol Sulfate HFA] 8.5 gm INH BID 11/24/20 [History] buPROPion [Wellbutrin SR] 300 mg PO DAILY 11/24/20 [History] Calcium Carbonate [Calcium] 500 mg PO DAILY 12/26/20 [History] Cholecalciferol (Vitamin D3) [Vitamin D3] 5,000 unit PO DAILY 12/26/20 [History] Ferrous Sulfate [Iron] 325 mg PO DAILY 12/26/20 [History] Folic Acid 0.4 mg PO DAILY 08/23/21 [History] Magnesium 250 mg PO DAILY 12/26/20 [History] - CURRENT (IN HOUSE) MEDS Current Meds: Current Medications Lactated Ringer's (Ringers, Lactated) 1,000 mls @ 125 mls/hr IV ASDIRECTED GLORIA Stop: 12/27/20 23:00 Lidocaine/Sodium Bicarbonate (Lidocaine 1%/Sod Bicarbonate In Ns 8.4% 1 Ml Syringe) 0.25 ml IDERM ONETIME PRN PRN Reason: Prior to IV Start Stop: 12/27/20 23:00 Sodium Chloride (Sodium Chloride 0.9% 10 Ml Syringe) 10 ml FLUSH ASDIRECTED PRN PRN Reason: Keep Vein Open Stop: 12/27/20 23:00
[2020-12-27] MEDS ORDERED: Albuterol 0.083% 2.5 MG/3 ML Neb Soln NEB ONE (09:00)
[2020-12-27] MEDS ORDERED: Bupivacaine 0.5% 30 ML SDV ONE (09:05)
[2020-12-27] MEDS ORDERED: Ondansetron 4 MG/2 ML SDV IVPUSH PRN ×2 (10:06→13:50)
--- NOTE | 2020-12-27 10:58 | PCM.POSTAN ---
POST ANESTHESIA ASSESSMENT - MENTAL STATUS Mental Status: Alert, Oriented - VITAL SIGNS Vital Signs: Last Vital Signs Temp Pulse Resp BP Pulse Ox 100 12/27/20 09:08 - RESPIRATORY Respiratory Status: Respiratory Rate WNL, Airway Patent, O2 Saturation Stable, Supplemental Oxygen - CARDIOVASCULAR CV Status: Pulse Rate WNL, Blood Pressure Stable - GASTROINTESTINAL GI Status: No Symptoms - PAIN Pain Score: 0 - POST OP HYDRATION Hydration Status: Adequate & Stable
--- NOTE | 2020-12-27 10:58 | PCM.OPNOTE ---
- General Post-Op/Procedure Note Date of Surgery/Procedure: 12/27/20 Operative Procedure(s): Total abdominal hysterectomy with bilateral salpingoectomy Findings: Uterus is normal size. Fallopian tubes and ovaries bilaterally appeared normal and functional. No posterior cul-de-sac adhesions. Anterior cul-de-sac showed moderate to severe adhesions secondary to previous x4. This involved the bladder's adhered somewhat to the anterior lower uterine segment portion of the uterus. Pre Op Diagnosis: 1. Dysmenorrhea. 2. Menorrhagia. 3. Previous section x4 Post-Op Diagnosis: Same Anesthesia Technique: General ET Tube Other Anesthesia Type: Marcaine 0.5% - 20 cclocal Primary Surgeon: Fco Sibley Secondary Surgeon: Delphine Albert Anesthesia Provider: Abril Galloway Group Program Manager: Khurram Kelly Reason Group Program Manager Was Necessary: Retraction, assistance, patient safety, quality of care. Pathology: Uterus and bilateral fallopian tubes in 1 specimen container. Fluid Replacement, Intraop: 1,800 Output, Urine Amount: 150 EBL in mLs: 150 Drain/Tube Comments:: Indwelling bladder catheter Complications: None Condition: Good Free Text/Narrative:: Surgery duration: 53 minutes Procedure: After adequate consent was obtained, the patient was taken to the operating room. She was given 2 g of Ancef IV for infection prophylaxis. She had sequential compression stockings placed for DVT prophylaxis. She is administered general endotracheal anesthesia. After adequate administration of anesthesia patient was placed in a frog-leg position and was prepped vaginally and abdominally in the routine fashion. Dunn catheter was placed. Patient's abdomen was then opened through her old Pfannenstiel skin incision scar. The incision was carried down through skin, subcutaneous and fascial layers. Severe and dense adhesions/scar tissue were apparent. Abdominal cavity was entered without problems. Anatomy is as described above. A medium sized Dinh self-retaining retractor was placed. The uterus was elevated with a double-tooth tenaculum at the fundus. Anterior cul-de-sac was noted to have bladder adherent to the front side of the uterus. [id number] had moderate to severe adhesions secondary to her previous 4 C-sections. Using a Enseal vessel closure device the right infundibulopelvic ligament and eventually the fallopian tube mesosalpinx was taken down. Ovaries were conserved per patient desire. The ovarian ligament, round ligament, broad ligament were then taken down in a routine stepwise fashion using the Enseal system. Same was done on patient's left side. The cardinal ligaments and taken down on each side to the level of the to the cervix. The angles of the vagina were then crossclamped using Otto clamps 2 these pedicles were cut and were suture ligated with Otto stitch of 0 Vicryl. A short running locked 0 Vicryl suture was then placed in the mid incision to complete the closure. Hemostasis was confirmed at this time. The pelvis was irrigated with fluid aspirated. The one sponge that had been pl aced was removed. The abdominal was then closed. The fascia was closed with a running suture of #1 PDS from angle to angle. The subcutaneous area was closed with 0 Monocryl suture first an interrupted layer. Subcuticular closure was then undertaken using 3-0 Monocryl suture on the Domingo needle. The incision was further asked made with Prineo mesh. The patient was awakened from general endotracheal anesthesia and was discharged from the operating room in good condition.
[2020-12-27] MEDS ORDERED: HYDROmorphone 0.5 MG/0.5 ML Syringe IVPUSH PRN (10:59)
[2020-12-27] MEDS: fentaNYL 100 MCG/2 ML SDV IVPUSH PRN ×3 (11:17→12:06)
[2020-12-27] MEDS: HYDROmorphone 0.5 MG/0.5 ML Syringe IVPUSH PRN ×2 (11:47→14:04)
[2020-12-27] MEDS ORDERED: Acetaminophen/oxyCODONE 325-5 MG Tab PO PRN (13:50)
[2020-12-27] MEDS: Lactated Ringers 1,000 ML IV SCH (14:07)
[2020-12-27] MEDS: Ketorolac 30 MG/ML SDV IVPUSH PRN (16:29)
[2020-12-27] MEDS ORDERED: Simethicone 80 MG Tab.Chew PO PRN ×2 (17:48→18:14)
[2020-12-27] MEDS: Acetaminophen/oxyCODONE 325-5 MG Tab PO PRN ×2 (18:19→23:16)
[2020-12-27] MEDS: Docusate Sodium 100 MG Cap PO SCH (21:00)
[2020-12-28] MEDS: Albuterol 6.7 GM Inhaler INH SCH ×2 (00:43→12:01)
[2020-12-28] MEDS: Lactated Ringers 1,000 ML IV SCH ×2 (03:30→09:58)
[2020-12-28] MEDS: Ketorolac 30 MG/ML SDV IVPUSH PRN (03:46)
[2020-12-28] MEDS ORDERED: Simethicone 80 MG Tab.Chew PO PRN (07:31)
[2020-12-28] MEDS: Docusate Sodium 100 MG Cap PO SCH (08:42)
[2020-12-28] MEDS: Acetaminophen/oxyCODONE 325-5 MG Tab PO PRN (08:42)
[2020-12-28 08:51] VITALS: BP 126/55; PULSE 103
[2020-12-28] MEDS ORDERED: buPROPion 150 MG Tab.ER PO SCH (09:00)
--- NOTE | 2020-12-28 09:20 | PCM48HPAN ---
Post Anesthesia Note - EVALUATION WITHIN 48HRS OF ANESTHETIC Vital Signs in Normal Range: Yes Patient Participated in Evaluation: Yes Respiratory Function Stable: Yes Airway Patent: Yes Cardiovascular Function Stable: Yes Hydration Status Stable: Yes Pain Control Satisfactory: Yes (Pain immediately after surgury unbearable; improved by 1800 yesterday.) Nausea and Vomiting Control Satisfactory: Yes Mental Status Recovered: Yes Vital Signs: Last Vital Signs Temp 37.1 C 12/28/20 08:40 Pulse 103 H 12/28/20 08:40 Resp 14 12/28/20 08:40 BP 126/55 L 12/28/20 08:40 Pulse Ox 96 12/28/20 08:40
--- NOTE | 2020-12-28 09:54 | PCM.DCSUM1 ---
Discharge Summary - Hospital Course Free Text/Narrative:: Arina was admitted on 12/27/2020 for total abdominal hysterectomy with bilateral salpingectomy. Preoperative diagnosis dysmenorrhea, menorrhagia, previous section x4 with no vaginal deliveries. She underwent surgery. Postoperatively pain was controlled with multiple parenteral drugs initially but then with ibuprofen and Percocet tablets. She is drinking fluids, has ambulated somewhat and has pain under excellent control. She is desiring discharge home. Diagnosis: Stroke: No - Discharge Data Discharge Date: 12/28/20 Discharge Disposition: Home, Self-Care 01 Condition: Good - Referral to Home Health Primary Care Physician: Stephanie Stacy MD - Discharge Diagnosis/Problem(s) (1) Dysmenorrhea SNOMED Code(s): 234550980 ICD Code: N94.6 - DYSMENORRHEA, UNSPECIFIED Status: Acute Current Visit: Yes (2) Menorrhagia SNOMED Code(s): 065633364 ICD Code: N92.0 - EXCESSIVE AND FREQUENT MENSTRUATION WITH REGULAR CYCLE Status: Acute Current Visit: Yes (3) Previous section SNOMED Code(s): 202090113 ICD Code: Z98.891 - HISTORY OF UTERINE SCAR FROM PREVIOUS SURGERY Status: Acute Current Visit: Yes - Patient Summary/Data Operative Procedure(s) Performed: Total abdominal hysterectomy with bilateral salpingoectomy - Patient Instructions Diet: Regular Diet as Tolerated Activity: As Tolerated ([place] or tampons until seen back. No lifting greater than 15 pounds or driving a car x7 to 10 days.) Driving: Do Not Drive Showering/Bathing: May Shower Wound/Incision Care: Keep Operative Site/Wound Site Clean and Dry Notify Provider of: Fever, Increased Pain, Swelling and Redness, Drainage, Nausea and/or Vomiting - Discharge Plan Home Medications: Home Meds Pnv No.95/Ferrous Fum/Folic AC [ Tablet] 1 each PO DAILY 10/18/19 [History] Albuterol Sulfate [Albuterol Sulfate HFA] 8.5 gm INH BID 11/24/20 [History] Calcium Carbonate [Calcium] 500 mg PO DAILY 12/26/20 [History] Cholecalciferol (Vitamin D3) [Vitamin D3] 5,000 unit PO DAILY 12/26/20 [History] Ferrous Sulfate [Iron] 325 mg PO DAILY 12/26/20 [History] Magnesium 250 mg PO DAILY 12/26/20 [History] buPROPion HCL [Wellbutrin Xl] 300 mg PO DAILY 12/27/20 [History] Acetaminophen/oxyCODONE [Percocet 325-5 MG] 2 tab PO Q4H PRN tablet 12/28/20 [Rx] buPROPion [buPROPion XL] 300 mg PO DAILY tab.er 12/28/20 [Rx] Referrals: Fco Sibley MD [Physician] - (Return to [facility] weeks.) - Discharge Summary/Plan Comment DC Time >30 min.: No Total # of Minutes for Discharge Time: 10 Discharge Summary/Plan Comment: Discharge instructions: 1. Discharge home 2. Diet, activity and follow-up discussed with patient. 3. Precautions given concern increased pain, bleeding, temperature, signs/symptoms of DVT/PE. 4. Medications per home medication was printed, discussed with and given to the patient. 5. Return to clinic-Dr. Sibley-[facility] in 4 weeks. Condition: Good - Patient Data Vitals - Most Recent: Last Vital Signs Temp 37.1 C 12/28/20 08:40 Pulse 103 H 12/28/20 08:40 Resp 14 12/28/20 08:40 BP 126/55 L 12/28/20 08:40 Pulse Ox 96 12/28/20 08:40 Weight - Most Recent: 110 kg I&O - Last 24 hours: Intake & Output 12/27/20 12/28/20 12/28/20 22:59 06:59 14:59 Intake Total 0 1100 Output Total 200 400 Balance -200 700 Lab Results - Last 24 hrs: Laboratory Results - last 24 hr 12/27/20 12/28/20 Range/Units 08:22 04:57 WBC 9.33 (3.98-10.04) K/mm3 RBC 2.89 L (3.98-5.22) M/mm3 Hgb 8.5 L D (11.2-15.7) gm/dl Hct 26.1 L (34.1-44.9) % MCV 90.3 (79.4-94.8) fl MCH 29.4 (25.6-32.2) pg MCHC 32.6 (32.2-35.5) g/dl RDW Std Deviation 40.9 (36.4-46.3) fL Plt Count 376 H (182-369) K/mm3 MPV 10.1 (9.4-12.3) fl Gel Antibody Screen Negative Med Orders - Current: Current Medications Albuterol (Albuterol 6.7 Gm Inhaler) 0 gm INH BID [facility] Last Admin: 12/28/20 00:43 Dose: Not Given Documented by: Bupropion HCl (Bupropion 150 Mg Tab.Er) 300 mg PO DAILY [facility] Last Admin: 12/28/20 08:42 Dose: 300 mg Documented by: Docusate Sodium (Docusate Sodium 100 Mg Cap) 100 mg PO BID [facility] Last Admin: 12/28/20 08:42 Dose: 100 mg Documented by: Lactated Ringer's (Ringers, Lactated) 1,000 mls @ 125 mls/hr IV ASDIRECTED [facility] Last Admin: 12/28/20 03:30 Dose: 125 mls/hr Documented by: Ketorolac Tromethamine (Ketorolac 30 Mg/Ml Sdv) 30 mg IVPUSH Q8H PRN PRN Reason: Pain (moderate 4-6) Stop: 01/01/21 16:01 Last Admin: 12/28/20 03:46 Dose: 30 mg Documented by: Ondansetron HCl (Ondansetron 4 Mg/2 Ml Sdv) 4 mg IVPUSH Q4H PRN PRN Reason: Nausea/Vomiting Last Admin: 12/27/20 18:15 Dose: 4 mg Documented by: Oxycodone/Acetaminophen (Acetaminophen/Oxycodone 325-5 Mg Tab) 1 tab PO Q4H PRN PRN Reason: Pain (moderate 4-6) Oxycodone/Acetaminophen (Acetaminophen/Oxycodone 325-5 Mg Tab) 2 tab PO Q4H PRN PRN Reason: Pain (severe 7-10) Last Admin: 12/28/20 08:42 Dose: 2 tab Documented by: Simethicone (Simethicone 80 Mg Tab.Chew) 160 mg PO Q8H PRN PRN Reason: Gas Last Admin: 12/28/20 08:42 Dose: 160 mg Documented by: Discontinued Medications Albuterol (Albuterol 0.083% 2.5 Mg/3 Ml Neb Soln) 2.5 mg NEB ONETIME ONE Stop: 12/27/20 09:01 Last Admin: 12/27/20 09:06 Dose: 2.5 mg Documented by: Bupivacaine HCl (Bupivacaine 0.5% 30 Ml Sdv) Confirm Administered Dose 30 ml .ROUTE .STK-MED ONE Stop: 12/27/20 09:06 Last Admin: 12/27/20 09:46 Dose: 20 ml Documented by: Cefazolin Sodium (Cefazolin 1 Gm Vial) Confirm Administered Dose 2 gm .ROUTE .STK-MED ONE Stop: 12/27/20 08:15 Dexamethasone (Dexamethasone 4 Mg/Ml 5 Ml Mdv) Confirm Administered Dose 20 mg .ROUTE .STK-MED ONE Stop: 12/27/20 08:16 Fentanyl (Fentanyl 250 Mcg/5 Ml Sdv) Confirm Administered Dose 250 mcg .ROUTE .STK-MED ONE Stop: 12/27/20 08:15 Fentanyl (Fentanyl 100 Mcg/2 Ml Sdv) 50 mcg IVPUSH Q5M PRN PRN Reason: Pain (moderate 4-6) Stop: 12/27/20 13:00 Last Admin: 12/27/20 12:06 Dose: 50 mcg Documented by: Glycopyrrolate (Glycopyrrolate 0.2 Mg/Ml 2 Ml Syringe) Confirm Administered Dose 0.8 mg .ROUTE .STK-MED ONE Stop: 12/27/20 10:05 Hydromorphone HCl (Hydromorphone 0.5 Mg/0.5 Ml Syringe) Confirm Administered Dose 0.5 mg .ROUTE .STK-MED ONE Stop: 12/27/20 08:15 Hydromorphone HCl (Hydromorphone 0.5 Mg/0.5 Ml Syringe) Confirm Administered Dose 0.5 mg .ROUTE .STK-MED ONE Stop: 12/27/20 09:41 Hydromorphone HCl (Hydromorphone 0.5 Mg/0.5 Ml Syringe) 0.5 mg IVPUSH ONETIME PRN PRN Reason: Pain (severe 7-10) Last Admin: 12/27/20 11:06 Dose: 0.5 mg Documented by: Hydromorphone HCl (Hydromorphone 0.5 Mg/0.5 Ml Syringe) 0.5 mg IVPUSH ASDIRE CTED PRN PRN Reason: Pain (severe 7-10) Last Admin: 12/27/20 14:04 Dose: 0.5 mg Documented by: Hydromorphone HCl (Hydromorphone 0.5 Mg/0.5 Ml Syringe) Confirm Administered Dose 0.5 mg .ROUTE .STK-MED ONE Stop: 12/27/20 11:46 Last Admin: 12/27/20 13:52 Dose: Not Given Documented by: Lactated Ringer's (Ringers, Lactated) 1,000 mls @ 125 mls/hr IV ASDIRECTED [facility] Stop: 12/27/20 23:00 Last Admin: 12/27/20 09:00 Dose: 125 mls/hr Documented by: Lidocaine HCl (Xylocaine-Mpf 1%) Confirm Administered Dose 4 mls @ as directed .ROUTE .STK-MED ONE Stop: 12/27/20 08:16 Lactated Ringer's (Ringers, Lactated) Confirm Administered Dose 1,000 mls @ as directed .ROUTE .STK-MED ONE Stop: 12/27/20 08:16 Ketamine HCl (Ketamine 500 Mg/10 Ml Mdv) Confirm Administered Dose 500 mg .ROUTE .STK-MED ONE Stop: 12/27/20 08:15 Ketorolac Tromethamine (Ketorolac 30 Mg/Ml Sdv) Confirm Administered Dose 30 mg .ROUTE .STK-MED ONE Stop: 12/27/20 08:16 Lidocaine/Sodium Bicarbonate (Lidocaine 1%/Sod Bicarbonate In Ns 8.4% 1 Ml Syringe) 0.25 ml IDERM ONETIME PRN PRN Reason: Prior to IV Start Stop: 12/27/20 23:00 Midazolam HCl (Midazolam 1 Mg/Ml 2 Ml Sdv) Confirm Administered Dose 2 mg .ROUTE .STK-MED ONE Stop: 12/27/20 08:15 Neostigmine Methylsulfate (Neostigmine Methylsulfate 5 Mg/5 Ml Syringe) Confirm Administered Dose 5 mg .ROUTE .STK-MED ONE Stop: 12/27/20 10:05 Ondansetron HCl (Ondansetron 4 Mg/2 Ml Sdv) Confirm Administered Dose 4 mg .ROUTE .STK-MED ONE Stop: 12/27/20 08:15 Ondansetron HCl (Ondansetron 4 Mg/2 Ml Sdv) 4 mg IVPUSH ONETIME PRN PRN Reason: Nausea/Vomiting Stop: 12/27/20 16:00 Last Admin: 12/27/20 11:06 Dose: 4 mg Documented by: Propofol (Propofol 200 Mg/20 Ml Sdv) Confirm Administered Dose 200 mg .ROUTE .STK-MED ONE Stop: 12/27/20 08:15 Rocuronium [place] (Rocuronium 50 Mg/5 Ml Vial) Confirm Administered Dose 50 mg .ROUTE .STK-MED ONE Stop: 12/27/20 08:15 Simethicone (Simethicone 80 Mg Tab.Chew) 80 mg PO Q4H PRN PRN Reason: Gas Simethicone (Simethicone 80 Mg Tab.Chew) 80 mg PO Q4H PRN PRN Reason: Gas Last Admin: 12/27/20 18:20 Dose: 80 mg Documented by: Sodium Chloride (Sodium Chloride 0.9% 10 Ml Syringe) 10 ml FLUSH ASDIRECTED PRN PRN Reason: Keep Vein Open Stop: 12/27/20 23:00
== END 2020-12-28 14:40 | disposition home or self-care (01) | DRG 743 ==
LOC: JD.OB 08:06 → JD.MS 23:23
PROVIDERS: ADMIT Obstetrics & Gynecology; ATTEND Obstetrics & Gynecology
PROC: 0UT90ZZ Resection of Uterus, Open Approach (ICD-10-PCS; principal; 2020-12-27)
PROC: 0UT70ZZ Resection of Bilateral Fallopian Tubes, Open Approach (ICD-10-PCS; 2020-12-27)
DX: N94.6 Dysmenorrhea, unspecified (principal); N92.0 Excessive and frequent menstruation with regular cycle; Z98.891 History of uterine scar from previous surgery; Z79.899 Other long term (current) drug therapy; Z91.048 Other nonmedicinal substance allergy status; Z91.040 Latex allergy status; F32.9 Major depressive disorder, single episode, unspecified; D64.9 Anemia, unspecified; I10 Essential (primary) hypertension; R35.0 Frequency of micturition
CPT/HCPCS: 00840; 36415; 81003; 81025; 82565; 85025; 85027; 86850; 86900; 86901; 94640; A9270-GY; J0690; J1100; J1170; J1885; J2250; J2405; J2704; J2710; J3010; J3490; J7120